=== PATIENT | female | born 1965 | race Two or more races ===

== ENCOUNTER 2020-10-08 09:59 | Outpatient (REF) | payer OTHER, SELFPAY | END 2020-10-08 10:00 | disposition home or self-care (01) | LOC: HO.LAB 09:59 | PROVIDERS: Visit Provider Internal Medicine | DX: Z20.828 Contact with and (suspected) exposure to other viral communicable diseases (principal) | CPT/HCPCS: C9803; U0003 ==

== ENCOUNTER 2021-07-10 11:17 | Emergency (ER) | payer OTHER, SELFPAY ==
[2021-07-10 12:05] VITALS: BP 197/108; PULSE 73; RESP 18; TEMP 37; O2SAT 98; BMI 38.9
--- NOTE | 2021-07-10 13:31 | ED.WOUNDLAC ---
HPI - Wound/Laceration General Chief Complaint: Wound/Laceration Stated Complaint: laceration Time Seen by Provider: 07/10/21 13:31 History of Present Illness HPI narrative: Patient complains of laceration to the left hand this morning from a scissors, no there is no pain there is no numbness weakness or tingling, no other injury Related Data Allergies Allergy/AdvReac Type Severity Reaction Status Date / Time ibuprofen Allergy Unknown kidney Verified 06/24/14 00:00 problems No Known Allergies Allergy Unknown Unverified 08/11/20 16:20 Review of Systems Review of Systems: Positive for left hand laceration Negatives are no dizziness no fainting no numbness no weakness no tingling no joint pains Yes all other systems are reviewed and are negative PMFSH Past Medical History Source: nursing notes reviewed Medical History (Updated 07/10/21 @ 13:57 by CHARLES Magallon) GERD (gastroesophageal reflux disease) HTN (hypertension) Social History Social History Advance Directives: No Advance Directives Information Provided: No Physical Exam Vital Signs: Vital Signs: Last Vital Signs Temp 98.6 F 07/10/21 12:05 Pulse 73 07/10/21 12:05 Resp 18 07/10/21 12:05 BP 197/108 H 07/10/21 12:05 Pulse Ox 98 07/10/21 12:05 Body Mass Index 38.9 General appearance no acute distress Head is normocephalic atraumatic Neck is supple Respiratory no distress Extremities full range of motion x4 Left hand in the webspace between the thumb and index finger there is 1 cm laceration, but there is full range of motion and thumb and index finger there is no evidence of any flexor or extensor tendon impairment, sensation and motor are intact and neurovascular intact distal, full range of motion in all joints Course Course Course Narrative: 1 cm left hand laceration is cleansed and irrigated with normal saline, examined for foreign body none visualized anesthesia is 4 cc of 1% lidocaine Closure was 2 x 5.0 nylon sutures, bleeding controlled and bandage applied Discharge Plan Discharge Clinical Impression: Laceration Patient Disposition: Home, Self-Care Additional Instructions: Two stitches should be removed in 7 days Return any time for redness swelling discharge from wound any sign of infection any worse condition You got a tetanus shot today Interventions: ED Discharge Assessment Last Done: 07/10/21 14:21 Discharge Date/Time: 07/10/21 14:22
[2021-07-10] MEDS: Lidocaine HCl 1 % MPF 5 ML VIAL SUBCUT (13:35)
[2021-07-10] MEDS: Diphth,Pertus(ACell),Tet Adult 0.5 ML SYRINGE IM (14:15)
== END 2021-07-10 14:22 | disposition home or self-care (01) ==
PROVIDERS: Emergency Provider Internal Medicine
DX: S61.412A Laceration without foreign body of left hand, initial encounter (principal); W27.2XXA Contact with scissors, initial encounter; Y93.9 Activity, unspecified; Y92.019 Unspecified place in single-family (private) house as the place of occurrence of the external cause; Y99.9 Unspecified external cause status
CPT/HCPCS: 12001; 90471; 90715; 99283; 99284

== ENCOUNTER 2021-08-08 11:13 | Outpatient (REF) | payer OTHER, SELFPAY ==
--- NOTE | ~2021-08-08 | XR_ITS ---
EXAMINATION: XR FOOT, LEFT CLINICAL INFORMATION: Left foot pain. COMPARISON: None TECHNIQUE: AP, lateral, and oblique views of the left foot. FINDINGS: Mild diffuse osteopenia. Nonspecific arthritic changes are noted at the second tarsometatarsal joint. Mild osteophyte formation is also noted at the dorsal aspect of the midfoot and small posterior plantar calcaneal spur. XR/XR foot LT min 3V IMPRESSION: Mild diffuse osteopenia. Nonspecific arthropathy at the second tarsometatarsal joint. Small posterior plantar calcaneal spur and osteoarthropathy of the dorsal aspect of the mid foot.
== END 2021-08-08 11:14 | disposition home or self-care (01) ==
LOC: HO.XRAY 11:13
PROVIDERS: PCP Internal Medicine Geriatric Medicine; Visit Provider Family Medicine
DX: M79.672 Pain in left foot (principal)
CPT/HCPCS: 73630

== ENCOUNTER 2021-09-05 11:55 | Inpatient (IN) | payer OTHER, SELFPAY ==
[2021-09-05] VITALS (9 sets, daily range): BP systolic 134–169; BP diastolic 75–96; PULSE 69–102; RESP 16–18; TEMP 36.7–37.8; O2SAT 97–100; BMI 38.9
--- NOTE | ~2021-09-05 | XR_ITS ---
EXAMINATION: XR WRIST, RIGHT CLINICAL INFORMATION: Postreduction: [place] fracture COMPARISON: Right forearm 09/05/2021 performed at 1:16 PM TECHNIQUE: PA, lateral, and oblique views of the right wrist. FINDINGS: Postreduction there is no change in the alignment of distal radial comminuted fracture and ulnar fracture. The fracture is stabilized with a palmar hard cast. XR/XR wrist RT min 3V IMPRESSION: Status post reduction the wrist is in a hard cast along the palmar aspect. Comminuted distal radial and comminuted ulnar fractures are unchanged to earlier exam performed at 1:22 PM
--- NOTE | ~2021-09-05 | XR_ITS ---
EXAMINATION: XR PELVIS CLINICAL INFORMATION: Status post right hip arthroplasty 15 years ago. Diagnosed with a distal femoral fracture on an x-ray from earlier today. COMPARISON: Femoral radiograph done earlier today at 4:27 PM. Interval the pelvis dated from 03/14/2015. TECHNIQUE: AP view of the pelvis. FINDINGS: A total right hip arthroplasty is intact. No acute fractures or malalignment. Mild degenerative changes in the left hip with joint space narrowing and subcortical sclerosis. XR/XR pelvis 1-2V IMPRESSION: Normal appearance of a right hip arthroplasty. No acute fractures or malalignment.
--- NOTE | ~2021-09-05 | FL_ITS ---
EXAMINATION: XR FLUOROSCOPY WITH IMAGES XR FLUOROSCOPY WITH IMAGES CLINICAL INFORMATION: Fracture right radius and fracture right femur COMPARISON: Radiographs from 09/05/2021 TECHNIQUE: RIGHT WRIST: Intraoperative fluoroscopic imaging of the right wrist. Number of saved fluoroscopy images: 5 Fluoroscopy exposure time of 1.9 minutes. Dose area product of 0.0708 mGym2 Right femur: Intraoperative fluoroscopic imaging of right femur. Number of saved images: 7 Fluoroscopy exposure time of 1.6 minutes. Dose area product of 0.273 Gycm2 FL/FL guidance in OR FINDINGS AND IMPRESSION: Right wrist: Intraoperative fluoroscopic guidance during open reduction and internal fixation of the comminuted fracture of the distal radius. The images show well-positioned volar fixation plate and screws with near-anatomic reduction of distal radial fragments. Carpal bone alignment is normal. Please refer to the operative report. Right femur: Intraoperative fluoroscopic guidance utilized during open reduction and internal fixation of the comminuted fracture of the distal femoral metadiaphysis (with supracondylar extension). The femoral fixation plate and screws are in satisfactory position. There is near anatomic reduction of the major fragments. Alignment is maintained at the knee. Please refer to the operative report.
--- NOTE | ~2021-09-05 | XR_ITS ---
EXAMINATION: RIGHT HAND, RIGHT FOREARM AND RIGHT KNEE. CLINICAL INFORMATION: Fall with hand and wrist pain. COMPARISON: None TECHNIQUE: 2 views right knee. 2 views hand/wrist. 2 views right forearm. FINDINGS: Right hand/wrist: There is a distal radial: These fracture with intra-articular extension and therefore deformity. Also visualized is distal ulnar fracture with intra-articular extension that are visualized on lateral view. Right forearm: The size of distal radial and ulnar fractures no abnormality seen involving the rest of the radius and ulna. Right knee: There is a comminuted distal femoral/supracondylar fracture with likely mild joint effusion. The there is loss of medial and lateral compartment joint space with periarticular spurring lateral compartment. The soft tissues are grossly unremarkable.. XR/XR knee RT 2V IMPRESSION: Comminuted distal radial fracture with intra-articular extension and there fork deformity. Also visualized is unremarkable distal ulnar fracture with intra-articular extension. Moderate dorsal wrist soft tissue swelling. Rest of the radius and ulna of the forearm is unremarkable. Comminuted distal femur is/supracondylar fracture with mild displacement and likely mild joint effusion.
--- NOTE | ~2021-09-05 | XR_ITS ---
EXAMINATION: XR FEMUR, RIGHT CLINICAL INFORMATION: Femur fracture COMPARISON: Right knee and pelvis x-ray from earlier the same day TECHNIQUE: AP and lateral views of the right femur were obtained. FINDINGS: There is a right hip replacement in satisfactory position. There is a comminuted fracture of the distal shaft of the femur. There is anterior displacement of the femoral shaft with respect to the femoral condyles and distal metaphysis by the width of the femoral shaft, or 3 to 4 cm. There is impaction at the fracture. No other fracture is seen. There is overlying soft tissue swelling. XR/XR femur RT 2V IMPRESSION: Comminuted displaced impacted right distal femoral shaft fracture. Right hip replacement in satisfactory position.
--- NOTE | ~2021-09-05 | XR_ITS ---
EXAMINATION: XR CHEST CLINICAL INFORMATION: Preop clearance. Femur fracture. COMPARISON: None TECHNIQUE: Frontal view of the chest was obtained. FINDINGS: The cardiac and mediastinal contours are normal. The lungs are clear. There is no pleural effusion or pneumothorax. There are degenerative changes of the spine. XR/XR chest 1V IMPRESSION: No evidence for acute disease in the chest.
--- NOTE | ~2021-09-05 | XR_ITS ---
EXAMINATION: RIGHT HAND, RIGHT FOREARM AND RIGHT KNEE. CLINICAL INFORMATION: Fall with hand and wrist pain. COMPARISON: None TECHNIQUE: 2 views right knee. 2 views hand/wrist. 2 views right forearm. FINDINGS: Right hand/wrist: There is a distal radial: These fracture with intra-articular extension and therefore deformity. Also visualized is distal ulnar fracture with intra-articular extension that are visualized on lateral view. Right forearm: The size of distal radial and ulnar fractures no abnormality seen involving the rest of the radius and ulna. Right knee: There is a comminuted distal femoral/supracondylar fracture with likely mild joint effusion. The there is loss of medial and lateral compartment joint space with periarticular spurring lateral compartment. The soft tissues are grossly unremarkable.. XR/XR forearm RT 2V IMPRESSION: Comminuted distal radial fracture with intra-articular extension and there fork deformity. Also visualized is unremarkable distal ulnar fracture with intra-articular extension. Moderate dorsal wrist soft tissue swelling. Rest of the radius and ulna of the forearm is unremarkable. Comminuted distal femur is/supracondylar fracture with mild displacement and likely mild joint effusion.
--- NOTE | ~2021-09-05 | XR_ITS ---
EXAMINATION: RIGHT HAND, RIGHT FOREARM AND RIGHT KNEE. CLINICAL INFORMATION: Fall with hand and wrist pain. COMPARISON: None TECHNIQUE: 2 views right knee. 2 views hand/wrist. 2 views right forearm. FINDINGS: Right hand/wrist: There is a distal radial: These fracture with intra-articular extension and therefore deformity. Also visualized is distal ulnar fracture with intra-articular extension that are visualized on lateral view. Right forearm: The size of distal radial and ulnar fractures no abnormality seen involving the rest of the radius and ulna. Right knee: There is a comminuted distal femoral/supracondylar fracture with likely mild joint effusion. The there is loss of medial and lateral compartment joint space with periarticular spurring lateral compartment. The soft tissues are grossly unremarkable.. XR/XR hand wrist RT IMPRESSION: Comminuted distal radial fracture with intra-articular extension and there fork deformity. Also visualized is unremarkable distal ulnar fracture with intra-articular extension. Moderate dorsal wrist soft tissue swelling. Rest of the radius and ulna of the forearm is unremarkable. Comminuted distal femur is/supracondylar fracture with mild displacement and likely mild joint effusion.
--- NOTE | ~2021-09-05 | FL_ITS ---
EXAMINATION: XR FLUOROSCOPY WITH IMAGES XR FLUOROSCOPY WITH IMAGES CLINICAL INFORMATION: Fracture right radius and fracture right femur COMPARISON: Radiographs from 09/05/2021 TECHNIQUE: RIGHT WRIST: Intraoperative fluoroscopic imaging of the right wrist. Number of saved fluoroscopy images: 5 Fluoroscopy exposure time of 1.9 minutes. Dose area product of 0.0708 mGym2 Right femur: Intraoperative fluoroscopic imaging of right femur. Number of saved images: 7 Fluoroscopy exposure time of 1.6 minutes. Dose area product of 0.273 Gycm2 FL/FL guidance in OR FINDINGS AND IMPRESSION: Right wrist: Intraoperative fluoroscopic guidance during open reduction and internal fixation of the comminuted fracture of the distal radius. The images show well-positioned volar fixation plate and screws with near-anatomic reduction of distal radial fragments. Carpal bone alignment is normal. Please refer to the operative report. Right femur: Intraoperative fluoroscopic guidance utilized during open reduction and internal fixation of the comminuted fracture of the distal femoral metadiaphysis (with supracondylar extension). The femoral fixation plate and screws are in satisfactory position. There is near anatomic reduction of the major fragments. Alignment is maintained at the knee. Please refer to the operative report.
--- NOTE | 2021-09-05 12:10 | ED.FALL ---
HPI - Fall General Chief Complaint: Fall Stated Complaint: FALL W/R KNEE PAIN W/ ?DISLOCATION Time Seen by Provider: 09/05/21 12:07 Source: patient, family and EMS Mode of arrival: EMS Limitations: no limitations History of Present Illness HPI Narrative: 56-year-old female came in by ambulance for evaluation after falling down at home. Patient described and mechanical fall after she slipped on a slippery floor at the kitchen of her house, patient fell down landing pending on her right knee and right wrist, no head injury, no LOC, no reported anticoagulation medications, patient was able to extend her right knee at the field but unable to bear weight on it, EMS give the patient intranasal fentanyl spray for pain control. Patient still complaining pain. Related Data Home Medications Medication Instructions Recorded Confirmed amlodipine 5 mg tablet 1 tab PO BEDTIME 09/05/21 09/05/21 lisinopril 20 1 tab PO DAILY 09/05/21 09/05/21 mg-hydrochlorothiazide 12.5 mg tablet pantoprazole 40 mg tablet,delayed 1 tab PO DAILY 09/05/21 09/05/21 release Allergies Allergy/AdvReac Type Severity Reaction Status Date / Time ibuprofen Allergy Unknown kidney Verified 06/24/14 00:00 problems No Known Allergies Allergy Unknown Unverified 08/11/20 16:20 Review of Systems Review of Systems: All other systems are reviewed and are negative Constitutional: Reports as per HPI and Reports no additional constitutional complaints Eyes: Reports as per HPI and Reports no additional eye complaints Reports system reviewed and no additional complaints, except as documented Cardiovascular: Reports as per HPI and Reports no additional cardiovascular complaints Respiratory: Reports as per HPI and Reports no additional respiratory complaints Gastrointestinal: Reports as per HPI and Reports no additional gastrointestinal complaints Genitourinary: Reports no additional female genitourinary complaints Musculoskeletal: Reports no additional musculoskeletal complaints Skin/Breast: Reports system reviewed and no additional complaints, except as docu Psychiatric: Reports no additional psychiatric complaints Endocrine: Reports no additional endocrine complaints Hematologic/Lymphatic: Reports no additional hematologic/lymphatic complaints Allergic/Immunologic: Reports no additional allergic/immunologic complaints Reports system reviewed and no additional complaints, except as documented and Reports Abnormal speech present PMFSH Past Medical History Medical History GERD (gastroesophageal reflux disease) HTN (hypertension) Social History Social History Patient Tobacco Use Status: Never used Tobacco Use of substances other than those prescribed or required for medical reasons: No Advance Directives: No Advance Directives Information Provided: No Patient : No Physical Exam Vital Signs: Vital Signs: Last Vital Signs Temp 98.0 F 09/05/21 12:14 Pulse 69 09/05/21 12:14 Resp 18 09/05/21 13:54 BP 134/96 H 09/05/21 12:14 Pulse Ox 97 09/05/21 12:14 Body Mass Index 38.9 Vital signs have been reviewed as appeared to be correct. Blood pressure normal. Heart rate normal. Respiration rate normal. Temperature normal. Oxygen saturation normal. Appearance: Alert. Oriented X3. No acute distress. Head: Normal external exam. Normocephalic. Atraumatic. No Shah signs noted. No raccoon eyes noted Eyes: PERRLA. EOMI. Conjunctiva and sclera normal. Eyelids normal. ENT: TM's Normal. Pharynx normal. Uvula midline. Moist mucous membranes. No trismus noted. No drooling noted. No muffled voice noted. Neck: Normal inspection. Neck supple. FROM. No adenopathy. Thyroid Normal. No meningeal signs. No neck mass noted. CVS: Normal heart rate and rhythm. Heart sound normal. No murmurs noted. Pulses normal throughout. Respiratory: No respiratory distress. Painless inspiration. Breath sounds normal. No wheezes/rales/rhonchi noted. Chest nontender. No accessory muscle usage noted or decreased air movement noted. Abdomen: Soft and nontender. Bowel sounds normal in all 4 quadrants. No distention noted. No organomegaly noted. No visible injury noted. Back: No CVA tenderness. Full range of motion noted. Skin: Skin warm and dry. Normal skin color. Normal skin turgor. No rashes/lesions/lacerations noted. Extremities: Right wrist is immobilized by EMS, fork deformity, neurovascularly intact in the hands and proximal to the wrist. Cap refill is less than 2 seconds, strong palpable right radial artery. Right lower extremity is exam: Right knee tenderness, with deformity, neurovascularly intact distal and proximal to the knee. Neuro: Oriented X 3. Cranial nerve exam: II-XII are grossly intact No motor deficit. No sensory deficit. Reflexes normal. Course Course Course Narrative: Assessment and plan. 56-year-old female status post mechanical fall, patient sustained right wrist dislocated fracture, and the right distal femur dislocated fracture. Right wrist fracture was reduced in the emergency department please refer to progress note post reduction x-ray show a minimal reduction the case discussed with ortho to attempt to reduction in the OR while patient under general anesthesia. Procedures Orthopedic Fracture Reduction Fracture #1: Time Out Performed: Yes Side: right Fracture Reduction Location: radius Analgesia: hematoma block Technique: direct manipulation and traction/counter-traction Post Reduction X-rays Demonstrate: other (Minimal reduction.) Post-reduction neuro exam: intact Post-reduction vascular exam: intact Splint Applied: Yes Patient Tolerated Procedure: well MDM - Fall Medical Records Attestation: I reviewed the patient's medical records. Lab Data Attestation: I reviewed the patient's lab results. Result diagrams: 09/05/21 14:06 09/05/21 14:06 Labs: Lab Results 09/05/21 09/05/21 Range/Units 14:06 14:06 WBC 13.6 H (4.8-10.8) X10*3/uL RBC 5.50 (4.20-5.50) X10*6/uL Hgb 14.3 (12.0-16.0) g/dl Hct 44.8 (37-47) % MCV 81.5 (80-98) fL MCH 26.0 L (27.0-33.0) pg MCHC 31.9 (31.0-35.0) g/dl RDW 14.3 (11.0-16.0) % Plt Count 282 (160-400) X10*3/uL MPV 9.0 L (9.4-12.3) fL Immature Gran % (Auto) 0.5 H (0.0-0.4) % Neut % (Auto) 84.5 H (45-73) % Lymph % (Auto) 9.2 L (20-40) % [place] % (Auto) 5.6 (2-11) % Eos % (Auto) 0.1 (0-4) % Baso % (Auto) 0.1 (0-2) % Lymph # (Auto) 1.3 (1.2-4.9) X10*3/uL [place] # (Auto) 0.8 (0.1-1.2) X10*3/uL Eos # (Auto) 0.0 (0.0-0.4) X10*3/uL Baso # (Auto) 0.0 (0.0-0.2) X10*3/uL Abs Immat Gran (auto) 0.07 H (0.00-0.03) X10*3/uL Absolute Neuts (auto) 11.5 H (2.0-8.3) X10*3/uL Absolute Nucleated RBC 0.000 (0.0-0.012) X10*3/uL Nucleated RBC % (auto) 0.0 (0.0-0.2) /100WBC Sodium 138 (135-145) mmol/L Potassium 4.1 (3.3-5.1) mmol/L Chloride 105 (96-108) mmol/L Carbon Dioxide 25 (22-29) mmol/L Anion Gap 12 (12-20) BUN 17 H (9-16) mg/dL Creatinine 0.85 (0.5-1.4) mg/dL Estim Creat Clear Calc 81.3 Estimated GFR > 60 Random Glucose 132 H (60-115) mg/dL Calcium 9.8 (8.4-10.2) mg/dL Imaging Data Right wrist x-ray: Radiologist's impression: Comminuted distal radial fracture with intra-articular extension and there fork deformity. Also visualized is unremarkable distal ulnar fracture with intra-articular extension. Moderate dorsal wrist soft tissue swelling. ? Rest of the radius and ulna of the forearm is unremarkable. ? Right femur x-ray: Radiologist's impression: Comminuted distal femur is/supracondylar fracture with mild displacement and likely mild joint effusion. Discharge Plan Discharge Clinical Impression: Fracture of wrist Closed femur fracture Qualifiers: Encounter type: initial encounter Femur location: supracondylar without intracondylar extension Patient Disposition: Admitted As Inpatient
[2021-09-05] MEDS: oxyCODONE HCl Immed Release 5 MG TABLET PO (12:37)
[2021-09-05] MEDS: HYDROmorphone HCl 1 MG/ML SYRINGE IM (12:51)
[2021-09-05 14:10] LABS: MANUAL DIFF FLAG NO
[2021-09-05 14:12] LABS: Basophils Percent Auto 0.1 % (0-2); Eosinophils Percent Auto 0.1 % (0-4); Hematocrit 44.8 % (37-47); Hemoglobin 14.3 g/dl (12.0-16.0); Imm Gran Abs Auto 0.07 X10*3/uL (0.00-0.03); Imm Gran Pct Auto 0.5 % (0.0-0.4); Lymphocytes Absolute Auto 1.3 X10*3/uL (1.2-4.9); Lymphocytes Percent Auto 9.2 % (20-40); Mean Corpuscular HGB Conc 31.9 g/dl (31.0-35.0); Mean Corpuscular Volume 81.5 fL (80-98); Monocytes Absolute Auto 0.8 X10*3/uL (0.1-1.2); Monocytes Percent Auto 5.6 % (2-11); Neutrophils Absolute Auto 11.5 X10*3/uL (2.0-8.3); Neutrophils Percent Auto 84.5 % (45-73); Platelet Count 282 X10*3/uL (160-400); Red Cell Distribution Width 14.3 % (11.0-16.0); White Blood Count 13.6 X10*3/uL (4.8-10.8)
[2021-09-05] MEDS: Lidocaine HCl 1 % MPF 5 ML VIAL 10 ML SUBCUT (14:22)
[2021-09-05 14:24] LABS: Anion Gap 12 (12-20); Blood Urea Nitrogen 17 mg/dL (9-16); Calcium 9.8 mg/dL (8.4-10.2); Carbon Dioxide 25 mmol/L (22-29); Chloride 105 mmol/L (96-108); Creatinine Clr Calc Pharmacy 81.3; Estimated Glomerular Filt Rate > 60; Glucose Random 132 mg/dL (60-115); Potassium 4.1 mmol/L (3.3-5.1); Sodium 138 mmol/L (135-145)
--- NOTE | 2021-09-05 14:30 | ECG_ITS ---
Test Reason : FALL Blood Pressure : / mmHG Vent. Rate : 081 BPM Atrial Rate : 081 BPM P-R Int : 162 ms QRS Dur : 094 ms QT Int : 376 ms P-R-T Axes : 053 -35 041 degrees QTc Int : 436 ms Normal sinus rhythm with sinus arrhythmia Left axis deviation T-wave inversion in Anterior leads Nonspecific T wave abnormality Inferior leads RSR' or QR pattern in V1 suggests right ventricular conduction delay Left axis deviation Abnormal ECG When compared with ECG of 02-JUL-2014 02:09, Nonspecific T wave abnormality, worse in Inferior leads Referred By: Kevin Castillo Electronically Signed By:MAYRA VALENCIA MD
[2021-09-05] MEDS: HYDROmorphone HCl 0.5 MG/0.5 ML SYRINGE 0.1 MG IVPUSH (14:41)
--- NOTE | 2021-09-05 15:22 | P.HPOP_ITS ---
History of Present Illness History of Present Illness Date of Service: 09/05/21 Chief complaint: r distal femur fx and r distal radius / ulna fx Narrative: Amanda Santiago is a 56 year old female with a PMH of HTN who presented to the ED after sustaining a fall . She states she was in her pantry when she tripped over something and fell. She states her right knee went behind her and she also fall onto her right wrist. She was transported to the ED, xrays obtained which showed a right distal femur fracture and a right distal radius fracture. The right wrist was reduced in the ED, placed in a splint. Orthopedics was contacted for admission and surgical planning. The patient lives at home with her brother, she is right hand dominant. She does not use any assistive devices for ambulation. She performs all ADLs. Review of Systems 2 Review of Systems: Yes all other systems are reviewed and are negative PMF Past Medical History Medical History (Updated 09/05/21 @ 14:41 by Kevin Castillo MD) GERD (gastroesophageal reflux disease) HTN (hypertension) Surgical History Surgical History (Updated 09/05/21 @ 18:16 by Bryon Stroud PA-C) H/O left wrist surgery Status post total hip replacement, right Social History Social History Patient Tobacco Use Status: Never used Tobacco Use of substances other than those prescribed or required for medical reasons: No Advance Directives: No Advance Directives Information Provided: No Patient : No Meds Allergies Allergy/AdvReac Type Severity Reaction Status Date / Time ibuprofen Allergy Unknown kidney Verified 06/24/14 00:00 problems No Known Allergies Allergy Unknown Unverified 08/11/20 16:20 Home Medications Medication Instructions Recorded Confirmed Last Taken Type amlodipine 5 mg tablet 1 tab PO BEDTIME 09/05/21 09/05/21 09/04/21 History lisinopril 20 1 tab PO DAILY 09/05/21 09/05/21 09/05/21 History mg-hydrochlorothiazide 12.5 mg tablet pantoprazole 40 mg tablet,delayed 1 tab PO DAILY 09/05/21 09/05/21 09/05/21 History release Physical Exam Vital Signs: Vital Signs: Last Vital Signs Temp 98.0 F 09/05/21 12:14 Pulse 69 09/05/21 12:14 Resp 18 09/05/21 13:54 BP 134/96 H 09/05/21 12:14 Pulse Ox 97 09/05/21 12:14 Body Mass Index 38.9 Const: General: cooperative, healthy appearing, comfortable, no acute distress, well developed and alert Orientation/consciousness: patient oriented x3 HENMT: Head: Yes normal to inspection, Yes normocephalic and Yes atraumatic Eyes: General: appearance normal, both eyes and all related structures Neck: Neck: Yes normal visual inspection and Yes no lymphadenopathy Resp: Effort & Inspection: normal respiratory effort and able to speak in complete sentences Cardio: Rate: regular rate Peripheral pulses: Peripheral pulses 2+ throughout GI: Inspection: Yes normal to inspection Palpation (GI): Soft to palpation Skin: General skin exam: no rashes or lesions noted Neuro: General: patient oriented x3 Extrem: Other: Right lower extremity skin intact, no open wounds or lacerations. There is tenderness along the distal femur. No pain with log rol. Mild swelling in the right knee. No redness. No pain int he right ankle or foot. NVI. Right wrist splint intact. Sensation intact to the fingers with good capillary refill . Psych: Appearance: grossly normal Mental Status: mental status grossly normal Results Labs Result Diagrams: 09/05/21 14:06 09/05/21 14:06 Labs: Abnormal lab results 09/05/21 09/05/21 Range/Units 14:06 14:06 WBC 13.6 H (4.8-10.8) X10*3/uL MCH 26.0 L (27.0-33.0) pg MPV 9.0 L (9.4-12.3) fL Immature Gran % (Auto) 0.5 H (0.0-0.4) % Neut % (Auto) 84.5 H (45-73) % Lymph % (Auto) 9.2 L (20-40) % Abs Immat Gran (auto) 0.07 H (0.00-0.03) X10*3/uL Absolute Neuts (auto) 11.5 H (2.0-8.3) X10*3/uL BUN 17 H (9-16) mg/dL Random Glucose 132 H (60-115) mg/dL H & H 09/05/21 Range/Units 14:06 Hgb 14.3 (12.0-16.0) g/dl Hct 44.8 (37-47) % All other labs normal. Diagnostic results Wrist/Hand x-ray: image reviewed (Comminuted distal radial fracture with intra- articular extension) Knee x-ray: image reviewed (Comminuted displaced impacted right distal femoral shaft fracture. Right hip replacement in satisfactory position.) Assessment and Plan (1) Fracture of wrist: Status: Acute (2) Closed femur fracture: Qualifiers: Encounter type: initial encounter Femur location: supracondylar without intracondylar extension Status: Acute I discussed the case with Dr Alegria and explained the extent of the injury to the patient and options available which include surgical intervention. I explained the procedure in detail along with the length of recovery and rehab course. I explained the risk, benefits and alternatives. Risk including, but not limited to infection, blood clots, bleeding, non union or malunion and nerve/tissue damage to surrounding areas. I also discussed the possibility of DRUJ pinning. I answered all their questions and with their understanding they have consented to move forward with Operative Fixation of the right femur and operative fixation of the right distal radius with Dr Alegria. The patient will be T&S, med clearance obtained and NPO after midnight. Quality Stroke Does the patient have a stroke diagnosis?: No VTE Prior VTE?: No VTE Risk Level:: Surgical - high VTE Device Contraindication: N/A - Device Ordered VTE Drug Contraindication: Treatment Not Indicated (pre op) Procedures Date of Service Date of Service: 09/05/21
[2021-09-05 15:42] LABS: Appearance Urine CLEAR; Color Urine YELLOW; Glucose Urine UA NEG (NEG); Leukocyte Esterase Urine NEG (NEG); Nitrite Urine NEG (NEG); UACC Culture Trigger NO; Urine Blood 1+ (NEG); Urine Ketones NEG (NEG); Urine Protein NEG (NEG-TRACE)
[2021-09-05 16:09] LABS: Bacteria Urine TRACE /LPF; Mucus Urine 1+ /LPF; Squamous Epithelial Cell Urine 1+ /LPF; WBC Urine 0 /HPF (0-4)
--- NOTE | 2021-09-05 18:38 | HO.PM.IMCN ---
History of Present Illness Data of Consult Service Date: 09/05/21 Primary Care Provider: [facility] HPI Reason for consult: Pre op eval 56 year old female with PMH of HTN takes Norvasc, HCTZ and Lisinopril. She presented to the ED following a mechanical fall while arranging things in her pantry and may have tripped on an object. She denies dizziness, chest pain or shortness of breath at that time. She felt her right knee going behind and then fell onto her right wrist. Upon arrival to the ED, imaging showed a right distal femur fracture and a right distal radius fracture. The right wrist was reduced in the ED and splinted. She is having lots of pain and BP is moderatedly high. Review of Systems Review of Systems: pain in the right wrist, right leg/tigh, no chest pain, no sob Yes all other systems are reviewed and are negative [facility] Medical History (Updated 09/05/21 @ 18:46 by Jaison Hernandez MD) GERD (gastroesophageal reflux disease) HTN (hypertension) Pertinent family history: She reports no family history of CAD Surgical History H/O left wrist surgery Status post total hip replacement, right Social History Household Members: Family Housing: House Do you presently have visiting nurse or other home services: No Patient Tobacco Use Status: Never used Tobacco service: No Meds Allergies Allergy/AdvReac Type Severity Reaction Status Date / Time ibuprofen Allergy Unknown kidney Verified 06/24/14 00:00 problems Active Medications: Current Medications Acetaminophen (Acetaminophen 325 Mg Tablet) 650 mg PO Q6H PRN PRN Reason: Pain, Mild (Pain Scale 1-3) Docusate Sodium (Docusate Sodium 100 Mg Capsule) 100 mg PO BID KARI Hydromorphone HCl (Hydromorphone Hcl 0.5 Mg/0.5 Ml Syringe) 0.25 mg IVPUSH Q4H PRN; Protocol PRN Reason: Pain, Severe (Pain Scale 7-10) Dextrose/Sodium Chloride (D51/2ns) 1,000 mls @ 80 mls/hr IVCONT .[id number] KARI Cefazolin Sodium/Dextrose (Ancef) 2 gm in 50 mls @ 100 mls/hr IV PREOP ONE Stop: 09/06/21 12:29 Ondansetron HCl (Ondansetron Hcl 4 Mg/2 Ml Vial) 4 mg IVPUSH Q8H PRN PRN Reason: Nausea and Vomiting Oxycodone HCl (Oxycodone Hcl Immed Release 5 Mg Tablet) 5 mg PO Q4H PRN PRN Reason: Pain, Moderate (Pain Scale 4-6 Oxycodone HCl (Oxycodone Hcl Er 10 Mg Tab.Er.12h) 10 mg PO BID [facility] Sodium Chloride (0.9 % Sodium Chloride Flush 3 Ml Syringe) 3 ml IVFLUSH QSHIFT [facility] Home Medications Medication Instructions Recorded Confirmed Last Taken Type amlodipine 5 mg tablet 1 tab PO BEDTIME 09/05/21 09/05/21 09/04/21 History lisinopril 20 1 tab PO DAILY 09/05/21 09/05/21 09/05/21 History mg-hydrochlorothiazide 12.5 mg tablet pantoprazole 40 mg tablet,delayed 1 tab PO DAILY 09/05/21 09/05/21 09/05/21 History release Physical Exam Vital Signs and Narrative: Vital Signs: Last Vital Signs Temp 98.0 F 09/05/21 12:14 Pulse 91 09/05/21 17:32 Resp 18 09/05/21 17:32 BP 169/87 H 09/05/21 17:32 Pulse Ox 99 09/05/21 17:32 Body Mass Index 38.9 Results Labs CBC and Chem 7: 09/06/21 05:20 09/06/21 05:20 Labs: Laboratory Results - last 24 hr 09/05/21 09/05/21 09/05/21 14:06 14:06 15:30 MCV 81.5 MCH 26.0 L MCHC 31.9 RDW 14.3 Plt Count 282 MPV 9.0 L Immature Gran % (Auto) 0.5 H Neut % (Auto) 84.5 H Lymph % (Auto) 9.2 L [place] % (Auto) 5.6 Eos % (Auto) 0.1 Baso % (Auto) 0.1 Lymph # (Auto) 1.3 [place] # (Auto) 0.8 Eos # (Auto) 0.0 Baso # (Auto) 0.0 Abs Immat Gran (auto) 0.07 H Absolute Neuts (auto) 11.5 H Absolute Nucleated RBC 0.000 Nucleated RBC % (auto) 0.0 Anion Gap 12 Estim Creat Clear Calc 81.3 Estimated GFR > 60 Random Glucose 132 H Calcium 9.8 Urine Color YELLOW Urine Appearance CLEAR Urine pH 6.0 Ur Specific [place] 1.020 Urine Protein NEG Urine Glucose (UA) NEG Urine Ketones NEG Urine Blood 1+ H Urine Nitrite NEG Ur Leukocyte Esterase NEG Urine RBC 1-4 Urine WBC 0 Ur Squamous Epith Cells 1+ Urine Bacteria TRACE Urine Mucus 1+ Blood Type Antibody Screen 09/05/21 15:46 MCV MCH MCHC RDW Plt Count MPV Immature Gran % (Auto) Neut % (Auto) Lymph % (Auto) [place] % (Auto) Eos % (Auto) Baso % (Auto) Lymph # (Auto) [place] # (Auto) Eos # (Auto) Baso # (Auto) Abs Immat Gran (auto) Absolute Neuts (auto) Absolute Nucleated RBC Nucleated RBC % (auto) Anion Gap Estim Creat Clear Calc Estimated GFR Random Glucose Calcium Urine Color Urine Appearance Urine pH Ur Specific [place] Urine Protein Urine Glucose (UA) Urine Ketones Urine Blood Urine Nitrite Ur Leukocyte Esterase Urine RBC Urine WBC Ur Squamous Epith Cells Urine Bacteria Urine Mucus Blood Type O Positive Antibody Screen NEGATIVE ECG Interpretation: I reviewed ECG which shows sinus rythm and non-specific ST-T changes, no ischemic changes. Imaging Radiologist's Impressions: Impressions Forearm X-Ray 09/05/21 12:07 IMPRESSION: Comminuted distal radial fracture with intra-articular extension and there fork deformity. Also visualized is unremarkable distal ulnar fracture with intra-articular extension. Moderate dorsal wrist soft tissue swelling. Rest of the radius and ulna of the forearm is unremarkable. Comminuted distal femur is/supracondylar fracture with mild displacement and likely mild joint effusion. Hand/Wrist X-Ray 09/05/21 12:07 IMPRESSION: Comminuted distal radial fracture with intra-articular extension and there fork deformity. Also visualized is unremarkable distal ulnar fracture with intra-articular extension. Moderate dorsal wrist soft tissue swelling. Rest of the radius and ulna of the forearm is unremarkable. Comminuted distal femur is/supracondylar fracture with mild displacement and likely mild joint effusion. Knee X-Ray 09/05/21 12:07 IMPRESSION: Comminuted distal radial fracture with intra-articular extension and there fork deformity. Also visualized is unremarkable distal ulnar fracture with intra-articular extension. Moderate dorsal wrist soft tissue swelling. Rest of the radius and ulna of the forearm is unremarkable. Comminuted distal femur is/supracondylar fracture with mild displacement and likely mild joint effusion. Wrist X-Ray 09/05/21 14:33 IMPRESSION: Status post reduction the wrist is in a hard cast along the palmar aspect. Comminuted distal radial and comminuted ulnar fractures are unchanged to earlier exam performed at 1:22 PM Femur X-Ray 09/05/21 16:01 IMPRESSION: Comminuted displaced impacted right distal femoral shaft fracture. Right hip replacement in satisfactory position. Chest X-Ray 09/05/21 16:12 IMPRESSION: No evidence for acute disease in the chest. Pelvis X-Ray 09/05/21 16:55 IMPRESSION: Normal appearance of a right hip arthroplasty. No acute fractures or malalignment. Assessment and Plan (1) Fracture of wrist: Status: Acute (2) Closed femur fracture: Qualifiers: Encounter type: initial encounter Femur location: supracondylar without intracondylar extension Status: Acute 56 year old female with HTN, GERD here with mechanical fall resulting in right distal femur fracture and a right distal radius fracture 1/?Planed operative Fixation of the right femur and operative fixation of the right distal radius -At low cardiovascular risk given no h/o of CAD, HF, CVA/TIA or ischmic changes on ECG and given urgent nature of operation no further cardiac testing at this time. 2/HTN--BP seem high now possibly due to pain, will restart home meds 3/ GERD--PPI.
[2021-09-05] MEDS: HYDROmorphone HCl 0.5 MG/0.5 ML SYRINGE 0.25 MG IVPUSH (19:35)
[2021-09-05] MEDS: 0.9 % Sodium Chloride Flush 3 ML SYRINGE IVFLUSH (19:37)
[2021-09-05] MEDS: Dextrose 5 % and 0.45 % NaCl 1,000 ML 80 ML IVCONT (19:38)
[2021-09-05] MEDS: Docusate Sodium 100 MG CAPSULE PO (22:57)
[2021-09-05] MEDS: oxyCODONE HCl ER 10 MG TAB.ER.12H PO (22:57)
[2021-09-06] VITALS (11 sets, daily range): BP systolic 121–155; BP diastolic 72–105; PULSE 91–110; RESP 14–19; TEMP 36.2–37.2; O2SAT 4–100
[2021-09-06] MEDS: HYDROmorphone HCl 0.5 MG/0.5 ML SYRINGE 0.25 MG IVPUSH ×2 (00:53→06:04)
[2021-09-06 05:42] LABS: MANUAL DIFF FLAG NO
[2021-09-06 05:46] LABS: Basophils Percent Auto 0.1 % (0-2); Hematocrit 38.8 % (37-47); Hemoglobin 12.7 g/dl (12.0-16.0); Imm Gran Abs Auto 0.05 X10*3/uL (0.00-0.03); Imm Gran Pct Auto 0.5 % (0.0-0.4); Lymphocytes Absolute Auto 1.4 X10*3/uL (1.2-4.9); Lymphocytes Percent Auto 12.4 % (20-40); Mean Corpuscular HGB Conc 32.7 g/dl (31.0-35.0); Mean Corpuscular Hemoglobin 26.2 pg (27.0-33.0); Mean Platelet Volume 9.3 fL (9.4-12.3); Monocytes Absolute Auto 0.9 X10*3/uL (0.1-1.2); Monocytes Percent Auto 8.1 % (2-11); Neutrophils Absolute Auto 8.6 X10*3/uL (2.0-8.3); Neutrophils Percent Auto 78.9 % (45-73); Platelet Count 246 X10*3/uL (160-400); Red Blood Count 4.85 X10*6/uL (4.20-5.50); Red Cell Distribution Width 14.6 % (11.0-16.0)
[2021-09-06 06:17] LABS: Anion Gap 12 (12-20); Blood Urea Nitrogen 15 mg/dL (9-16); Carbon Dioxide 23 mmol/L (22-29); Chloride 102 mmol/L (96-108); Creatinine Clr Calc Pharmacy 95.9; Estimated Glomerular Filt Rate > 60; Glucose Fasting 141 mg/dL (60-99); Sodium 133 mmol/L (135-145)
[2021-09-06] MEDS: oxyCODONE HCl ER 10 MG TAB.ER.12H PO ×2 (10:23→20:19)
--- NOTE | 2021-09-06 11:41 | MHC.CM.PN ---
met with pt and her dgters pt lives in a 3 famil,y house with her brother, 2 of her 6 children live on the f2nd and 3rd floors pt is vaccinated with pfitzer she he is having surgery today her dc plan therefore is tbd by pt keshawn pt prefers to go home with home pt
[2021-09-06 11:54] LABS: COVID-19 Test Negative (Negative); IDNOW Serial# 08D9AD1C
--- NOTE | 2021-09-06 13:21 | P.PNIM_ITS ---
Subjective Subjective Date of Service: 09/06/21 Interval History: Seen in f/u for for pre op for femur and wrist fracture Review of Systems pain in hip no fever no chest pain no sob Physical Exam Vital Signs: Vital Signs: Last Vital Signs Temp 99.0 F 09/06/21 13:16 Pulse 109 H 09/06/21 13:16 Resp 16 09/06/21 13:16 BP 155/105 H 09/06/21 13:16 Pulse Ox 97 09/06/21 13:16 Body Mass Index 38.9 General: AO X 3, no acute distress Resp: CTA bilateral CVS: S1,S2,RRR GI: +BS, NT, no distention Skin: No rash Neuro: motor grossly intact MSK: right hand splint, pain in right hip with movment Psych: appropriate affect Objective Data Active Medications Acetaminophen (Acetaminophen 325 Mg Tablet) 650 mg PO Q6H PRN PRN Reason: Pain, Mild (Pain Scale 1-3) Docusate Sodium (Docusate Sodium 100 Mg Capsule) 100 mg PO BID [facility] Last Admin: 09/06/21 10:23 Dose: Not Given Documented by: ROMELIA Non-Admin Reason: NPO Hydromorphone HCl (Hydromorphone Hcl 0.5 Mg/0.5 Ml Syringe) 0.25 mg IVPUSH Q4H PRN; Protocol PRN Reason: Pain, Severe (Pain Scale 7-10) Last Admin: 09/06/21 06:04 Dose: 0.25 mg Documented by: REN Dextrose/Sodium Chloride (D51/2ns) 1,000 mls @ 80 mls/hr IVCONT .[id number] [facility] Last Admin: 09/06/21 09:19 Dose: Not Given Documented by: SAHIL Non-Admin Reason: IV Running Ondansetron HCl (Ondansetron Hcl 4 Mg/2 Ml Vial) 4 mg IVPUSH Q8H PRN PRN Reason: Nausea and Vomiting Oxycodone HCl (Oxycodone Hcl Immed Release 5 Mg Tablet) 5 mg PO Q4H PRN PRN Reason: Pain, Moderate (Pain Scale 4-6 Oxycodone HCl (Oxycodone Hcl Er 10 Mg Tab.Er.12h) 10 mg PO BID [facility] Last Admin: 10/13/21 10:23 Dose: 10 mg Documented by: ROMELIA Sodium Chloride (0.9 % Sodium Chloride Flush 3 Ml Syringe) 3 ml IVFLUSH QSHIFT [facility] Last Admin: 09/06/21 09:24 Dose: Not Given Documented by: SAHIL Non-Admin Reason: IV Running Labs CBC & Chem 7: 09/06/21 05:20 09/06/21 05:20 Labs: Laboratory Results - last 24 hr 09/05/21 09/05/21 09/05/21 14:06 14:06 15:30 MCV 81.5 MCH 26.0 L MCHC 31.9 RDW 14.3 Plt Count 282 MPV 9.0 L Immature Gran % (Auto) 0.5 H Neut % (Auto) 84.5 H Lymph % (Auto) 9.2 L [place] % (Auto) 5.6 Eos % (Auto) 0.1 Baso % (Auto) 0.1 Lymph # (Auto) 1.3 [place] # (Auto) 0.8 Eos # (Auto) 0.0 Baso # (Auto) 0.0 Abs Immat Gran (auto) 0.07 H Absolute Neuts (auto) 11.5 H Absolute Nucleated RBC 0.000 Nucleated RBC % (auto) 0.0 Anion Gap 12 Estim Creat Clear Calc 81.3 Estimated GFR > 60 Random Glucose 132 H Fasting Glucose Calcium 9.8 Urine Color YELLOW Urine Appearance CLEAR Urine pH 6.0 Ur Specific [place] 1.020 Urine Protein NEG Urine Glucose (UA) NEG Urine Ketones NEG Urine Blood 1+ H Urine Nitrite NEG Ur Leukocyte Esterase NEG Urine RBC 1-4 Urine WBC 0 Ur Squamous Epith Cells 1+ Urine Bacteria TRACE Urine Mucus 1+ COVID-19 (LISANDRO) COVID-19 Clin Com Blood Type Antibody Screen 09/05/21 09/06/21 09/06/21 15:46 05:20 05:20 MCV 80.0 MCH 26.2 L MCHC 32.7 RDW 14.6 Plt Count 246 MPV 9.3 L Immature Gran % (Auto) 0.5 H Neut % (Auto) 78.9 H Lymph % (Auto) 12.4 L [place] % (Auto) 8.1 Eos % (Auto) 0.0 Baso % (Auto) 0.1 Lymph # (Auto) 1.4 [place] # (Auto) 0.9 Eos # (Auto) 0.0 Baso # (Auto) 0.0 Abs Immat Gran (auto) 0.05 H Absolute Neuts (auto) 8.6 H Absolute Nucleated RBC 0.000 Nucleated RBC % (auto) 0.0 Anion Gap 12 Estim Creat Clear Calc 95.9 Estimated GFR > 60 Random Glucose Fasting Glucose 141 H Calcium 9.0 D Urine Color Urine Appearance Urine pH Ur Specific [place] Urine Protein Urine Glucose (UA) Urine Ketones Urine Blood Urine Nitrite Ur Leukocyte Esterase Urine RBC Urine WBC Ur Squamous Epith Cells Urine Bacteria Urine Mucus COVID-19 ([facility]ISANDRO) COVID-19 Clin Com Blood Type O Positive Antibody Screen NEGATIVE 09/06/21 11:20 MCV MCH MCHC RDW Plt Count MPV Immature Gran % (Auto) Neut % (Auto) Lymph % (Auto) [place] % (Auto) Eos % (Auto) Baso % (Auto) Lymph # (Auto) [place] # (Auto) Eos # (Auto) Baso # (Auto) Abs Immat Gran (auto) Absolute Neuts (auto) Absolute Nucleated RBC Nucleated RBC % (auto) Anion Gap Estim Creat Clear Calc Estimated GFR Random Glucose Fasting Glucose Calcium Urine Color Urine Appearance Urine pH Ur Specific [place] Urine Protein Urine Glucose (UA) Urine Ketones Urine Blood Urine Nitrite Ur Leukocyte Esterase Urine RBC Urine WBC Ur Squamous Epith Cells Urine Bacteria Urine Mucus COVID-19 (LISANDRO) Negative COVID-19 Clin Com See Note Blood Type Antibody Screen Assessment and Plan (1) Fracture of wrist: Status: Acute (2) Closed femur fracture: Status: Acute (3) HTN (hypertension): Status: Acute (4) GERD (gastroesophageal reflux disease): Status: Acute Assessment and Plan: 56 year old female with HTN, GERD here with mechanical fall resulting in? right distal femur fracture and a right distal radius fracture 1/?Planed operative Fixation of the right femur and operative fixation of the right distal radius -At low cardiovascular risk given no h/o of CAD, HF, CVA/TIA or ischmic changes on ECG and given urgent nature of operation no further cardiac testing at this time. 2/HTN--BP seem high now possibly due to pain, will restart home meds 3/ GERD--PPI. 4/DVT prophylaxis to be determined post op Quality Stroke Does the patient have a stroke diagnosis?: No VTE Prior VTE?: No VTE Risk Level:: Surgical - high VTE Device Contraindication: N/A - Device Ordered VTE Drug Contraindication: Treatment Not Indicated (pre op)
[2021-09-06] MEDS: Lactated Ringers 1,000 ML 100 ML IVCONT (13:24)
--- NOTE | 2021-09-06 13:49 | P.CONAN_ITS ---
HPI - Anesthesia Eval Consult details Narrative: 56 yo female patient for Operative Fixation Right femur and Right distal radius PMFSH Active Problems Active Problems: All Active Problems (Updated 09/05/21 @ 18:46 by Jaison Hernandez MD) GERD (gastroesophageal reflux disease) (Acute) HTN (hypertension) (Acute) Fracture of wrist (Acute) Closed femur fracture (Acute) Increased BMI Past Medical History Medical History (Updated 09/05/21 @ 18:46 by Jaison Hernandez MD) GERD (gastroesophageal reflux disease) HTN (hypertension) Family History Family history of problems with anesthesia: No Surgical History Surgical History H/O left wrist surgery Status post total hip replacement, right History of Problems with Anesthesia: No Social History Social History Household Members: Family Housing: House Do you presently have visiting nurse or other home services: No Patient Tobacco Use Status: Never used Tobacco service: No Meds Allergies Allergy/AdvReac Type Severity Reaction Status Date / Time ibuprofen Allergy Unknown kidney Verified 06/24/14 00:00 problems Active Medications: Current Medications Acetaminophen (Acetaminophen 325 Mg Tablet) 650 mg PO Q6H PRN PRN Reason: Pain, Mild (Pain Scale 1-3) Docusate Sodium (Docusate Sodium 100 Mg Capsule) 100 mg PO BID [facility] Last Admin: 09/06/21 10:23 Dose: Not Given Documented by: Hydromorphone HCl (Hydromorphone Hcl 0.5 Mg/0.5 Ml Syringe) 0.25 mg IVPUSH Q4H PRN; Protocol PRN Reason: Pain, Severe (Pain Scale 7-10) Last Admin: 09/06/21 06:04 Dose: 0.25 mg Documented by: Dextrose/Sodium Chloride (D51/2ns) 1,000 mls @ 80 mls/hr IVCONT .[id number] [facility] Last Admin: 09/06/21 09:19 Dose: Not Given Documented by: Ondansetron HCl (Ondansetron Hcl 4 Mg/2 Ml Vial) 4 mg IVPUSH Q8H PRN PRN Reason: Nausea and Vomiting Oxycodone HCl (Oxycodone Hcl Immed Release 5 Mg Tablet) 5 mg PO Q4H PRN PRN Reason: Pain, Moderate (Pain Scale 4-6 Oxycodone HCl (Oxycodone Hcl Er 10 Mg Tab.Er.12h) 10 mg PO BID [facility] Last Admin: 09/06/21 10:23 Dose: 10 mg Documented by: Sodium Chloride (0.9 % Sodium Chloride Flush 3 Ml Syringe) 3 ml IVFLUSH QSHIFT [facility] Last Admin: 09/06/21 09:24 Dose: Not Given Documented by: Home Medications Medication Instructions Recorded Confirmed Last Taken Type amlodipine 5 mg tablet 1 tab PO BEDTIME 09/05/21 09/05/21 09/04/21 History lisinopril 20 1 tab PO DAILY 09/05/21 09/05/21 09/05/21 History mg-hydrochlorothiazide 12.5 mg tablet pantoprazole 40 mg tablet,delayed 1 tab PO DAILY 09/05/21 09/05/21 09/05/21 History release Exam Exam Date and Time: September 06, 2021 1349 Height,Weight and Vital Signs: Height 5 ft 3 in Weight 99.79 kg Last Vital Signs Temp 99.0 F 09/06/21 13:16 Pulse 109 H 09/06/21 13:16 Resp 16 09/06/21 13:16 BP 155/105 H 09/06/21 13:16 Pulse Ox 97 09/06/21 13:16 Pertinent Lab Results Pertinent Lab Results: Laboratory Tests 09/05/21 09/05/21 09/05/21 14:06 14:06 15:30 WBC 13.6 H RBC 5.50 Hgb 14.3 Hct 44.8 MCV 81.5 MCH 26.0 L MCHC 31.9 RDW 14.3 Plt Count 282 MPV 9.0 L Immature Gran % (Auto) 0.5 H Neut % (Auto) 84.5 H Lymph % (Auto) 9.2 L [place] % (Auto) 5.6 Eos % (Auto) 0.1 Baso % (Auto) 0.1 Lymph # (Auto) 1.3 [place] # (Auto) 0.8 Eos # (Auto) 0.0 Baso # (Auto) 0.0 Abs Immat Gran (auto) 0.07 H Absolute Neuts (auto) 11.5 H Absolute Nucleated RBC 0.000 Nucleated RBC % (auto) 0.0 Sodium 138 Potassium 4.1 Chloride 105 Carbon Dioxide 25 Anion Gap 12 BUN 17 H Creatinine 0.85 Estim Creat Clear Calc 81.3 Estimated GFR > 60 Random Glucose 132 H Fasting Glucose Calcium 9.8 Urine Color YELLOW Urine Appearance CLEAR Urine pH 6.0 Ur Specific [place] 1.020 Urine Protein NEG Urine Glucose (UA) NEG Urine Ketones NEG Urine Blood 1+ H Urine Nitrite NEG Ur Leukocyte Esterase NEG Urine RBC 1-4 Urine WBC 0 Ur Squamous Epith Cells 1+ Urine Bacteria TRACE Urine Mucus 1+ COVID-19 (LISANDRO) COVID-19 [facility] Com Blood Type Antibody Screen 09/05/21 09/06/21 09/06/21 15:46 05:20 05:20 WBC 11.0 H RBC 4.85 Hgb 12.7 Hct 38.8 MCV 80.0 MCH 26.2 L MCHC 32.7 RDW 14.6 Plt Count 246 MPV 9.3 L Immature Gran % (Auto) 0.5 H Neut % (Auto) 78.9 H Lymph % (Auto) 12.4 L [place] % (Auto) 8.1 Eos % (Auto) 0.0 Baso % (Auto) 0.1 Lymph # (Auto) 1.4 [place] # (Auto) 0.9 Eos # (Auto) 0.0 Baso # (Auto) 0.0 Abs Immat Gran (auto) 0.05 H Absolute Neuts (auto) 8.6 H Absolute Nucleated RBC 0.000 Nucleated RBC % (auto) 0.0 Sodium 133 L Potassium 4.0 Chloride 102 Carbon Dioxide 23 Anion Gap 12 BUN 15 Creatinine 0.72 Estim Creat Clear Calc 95.9 Estimated GFR > 60 Random Glucose Fasting Glucose 141 H Calcium 9.0 D Urine Color Urine Appearance Urine pH Ur Specific [place] Urine Protein Urine Glucose (UA) Urine Ketones Urine Blood Urine Nitrite Ur Leukocyte Esterase Urine RBC Urine WBC Ur Squamous Epith Cells Urine Bacteria Urine Mucus COVID-19 (LISANDRO) COVID-19 [facility] Com Blood Type O Positive Antibody Screen NEGATIVE 09/06/21 11:20 WBC RBC Hgb Hct MCV MCH MCHC RDW Plt Count MPV Immature Gran % (Auto) Neut % (Auto) Lymph % (Auto) [place] % (Auto) Eos % (Auto) Baso % (Auto) Lymph # (Auto) [place] # (Auto) Eos # (Auto) Baso # (Auto) Abs Immat Gran (auto) Absolute Neuts (auto) Absolute Nucleated RBC Nucleated RBC % (auto) Sodium Potassium Chloride Carbon Dioxide Anion Gap BUN Creatinine Estim Creat Clear Calc Estimated GFR Random Glucose Fasting Glucose Calcium Urine Color Urine Appearance Urine pH Ur Specific [place] Urine Protein Urine Glucose (UA) Urine Ketones Urine Blood Urine Nitrite Ur Leukocyte Esterase Urine RBC Urine WBC Ur Squamous Epith Cells Urine Bacteria Urine Mucus COVID-19 (LISANDRO) Negative COVID-19 Clin Com See Note Blood Type Antibody Screen Airway Mallampati Class: II TM Dist: >3cm Neck ROM: Full Loose/Missing/Broken Teeth: Yes (Chipped top front) Heart: RRR Lungs: CTAB Assessment and Plan Assessment Anesthesia Assessment: Anesthesia Plan Discussed and Chart Reviewed Final Anesthetic Review Family History of Problems with Anesthesia: No History of Problems with Anesthesia: No NPO: Yes ASA Class: III Final Preanesthetic Review: No Changes in Pt Med Stat, Meds/Allgs Chart Reviewed, Consent Obtained/Reviewed and Anes Risks/Benef Reviewed Patient Risk: Intermediate Procedure Risk: Intermediate Assessment/Block/Sedation in SS: Assess/Block/Sedation- Anesthetic Plan Anesthetic Plan: GA Disposition: Standard PACU and Inp. Admit - Standard Bed
--- NOTE | 2021-09-06 14:02 | MHC.SHP ---
Pre-Procedural Eval Section A Date of Service: 09/06/21 The patient is an INPATIENT: Yes Changes since office visit: No Cold of Flu in the past 2 weeks, No New Medical Problems, No Changes in Medication and No Patient answered all questions The History & Physical has been completed within 30 days and I have reviewed it.: Yes Section B Chief Complaint: r distal femur fx and r distal radius / ulna fx Allergies: Allergies Allergy/AdvReac Type Severity Reaction Status Date / Time ibuprofen Allergy Unknown kidney Verified 06/24/14 00:00 problems Plan I have reviewed the history and physical and performed a pertinent physical examination on my patient. No changes have occurred unless specified.
[2021-09-06] MEDS: 0.9 % Sodium Chloride Flush 3 ML SYRINGE IVFLUSH (20:02)
[2021-09-06] MEDS: Dextrose 5 % and 0.45 % NaCl 1,000 ML 80 ML IVCONT (20:02)
[2021-09-06] MEDS: Docusate Sodium 100 MG CAPSULE PO (20:19)
--- NOTE | 2021-09-06 21:23 | PM.OP ---
Brief Operative Note Date of Service: 09/06/21 Pre-op diagnosis: right femur fracture RIght distal radius fracture Post-op diagnosis: other (same + right DRUJ dislocation) Procedure: 1) ORIF right femur 2)ORIF right distal radius 3) CRPP right DRUJ Implants: [place] distal femoral locking plate [place] distal radius locking plate Surgeon: Juan Miguel Alegria MD Anesthesia: GETA and local Was an Adoption Counselor used for this Procedure?: Yes Adoption Counselor: Lorenza Romero Estimated blood loss (mL): 300 Tourniquet time (min): 84 IV fluids (mL): 2,100 Pathology: none sent Condition: stable Disposition: PACU
[2021-09-06] MEDS: oxyCODONE HCl Immed Release 5 MG TABLET PO (21:57)
[2021-09-06] MEDS: Acetaminophen 325 MG TABLET 650 MG PO (22:00)
[2021-09-07] VITALS (8 sets, daily range): BP systolic 97–157; BP diastolic 59–89; PULSE 80–102; RESP 16–20; TEMP 36.3–37.6; O2SAT 97–100
[2021-09-07] MEDS: Ketorolac Tromethamine 15 MG/ML VIAL 30 MG IVPUSH (00:57)
[2021-09-07] MEDS: 0.9 % Sodium Chloride Flush 3 ML SYRINGE IVFLUSH ×2 (00:58→15:37)
[2021-09-07 05:42] LABS: Basophils Percent Auto 0.2 % (0-2); Eosinophils Percent Auto 0.1 % (0-4); Hematocrit 33.3 % (37-47); Hemoglobin 10.4 g/dl (12.0-16.0); Imm Gran Abs Auto 0.05 X10*3/uL (0.00-0.03); Imm Gran Pct Auto 0.4 % (0.0-0.4); Lymphocytes Absolute Auto 1.9 X10*3/uL (1.2-4.9); Lymphocytes Percent Auto 16.1 % (20-40); MANUAL DIFF FLAG SCAN; Mean Corpuscular HGB Conc 31.2 g/dl (31.0-35.0); Mean Corpuscular Hemoglobin 25.2 pg (27.0-33.0); Mean Corpuscular Volume 80.8 fL (80-98); Monocytes Absolute Auto 1.6 X10*3/uL (0.1-1.2); Monocytes Percent Auto 13.9 % (2-11); Neutrophils Absolute Auto 8.1 X10*3/uL (2.0-8.3); Neutrophils Percent Auto 69.3 % (45-73); Platelet Count 218 X10*3/uL (160-400); Red Blood Count 4.12 X10*6/uL (4.20-5.50); Red Cell Distribution Width 14.6 % (11.0-16.0); SCAN SMEAR FLAG 1; White Blood Count 11.7 X10*3/uL (4.8-10.8)
[2021-09-07] MEDS: HYDROmorphone HCl 0.5 MG/0.5 ML SYRINGE 0.25 MG IVPUSH ×3 (05:58→16:01)
[2021-09-07 06:00] LABS: SLIDE REVIEW VERIFIED
[2021-09-07 06:23] LABS: Anion Gap 10 (12-20); Blood Urea Nitrogen 15 mg/dL (9-16); Calcium 8.3 mg/dL (8.4-10.2); Carbon Dioxide 25 mmol/L (22-29); Chloride 104 mmol/L (96-108); Creatinine Clr Calc Pharmacy 86.3; Estimated Glomerular Filt Rate > 60; Glucose Fasting 123 mg/dL (60-99); Potassium 4.2 mmol/L (3.3-5.1); Sodium 135 mmol/L (135-145)
--- NOTE | 2021-09-07 06:52 | HO.POSTANES ---
Post Anesthesia Evaluation Post Anesthesia Evaluation Vital Signs: Vital Signs Temp Pulse Resp BP Pulse Ox 09/07/21 05:58 20 09/07/21 04:12 98 F 80 16 139/89 100 09/06/21 23:43 98.5 F 92 16 147/89 H 100 09/06/21 19:40 97.2 F 91 14 136/90 H 95 09/06/21 19:25 102 H 14 130/88 97 09/06/21 19:10 101 H 16 131/86 98 09/06/21 19:05 92 16 124/93 H 95 09/06/21 19:00 103 H 16 121/87 98 09/06/21 18:55 97.1 F 92 16 123/85 4 L Anesthesia: General Endotracheal-GETA Mental Status: Awake Pain Control: Satisfactory Nausea/Vomiting: None Hydration: Adequate Anesthesia-Related Issues: No Anes. Related Issues
[2021-09-07] MEDS: Docusate Sodium 100 MG CAPSULE PO ×2 (07:27→20:38)
[2021-09-07] MEDS: oxyCODONE HCl ER 10 MG TAB.ER.12H PO ×2 (07:27→20:38)
[2021-09-07] MEDS: Dextrose 5 % and 0.45 % NaCl 1,000 ML 80 ML IVCONT (07:33)
--- NOTE | 2021-09-07 09:30 | PM.PNORT ---
Subjective Subjective Date of Service: 09/07/21 Interval history: POD 1 sp ORIF rt distal femur and ORIF right distal radius with DRUJ pinnin No overnight events Restingng in chair used walker to ambulate to chair Physical Exam Vital Signs: Vital Signs: Last Vital Signs Temp 97.8 F 09/07/21 07:32 Pulse 89 09/07/21 08:29 Resp 17 09/07/21 07:32 BP 121/85 09/07/21 08:29 Pulse Ox 100 09/07/21 08:29 Body Mass Index 38.9 Const: General: cooperative, healthy appearing and no acute distress Resp: Effort & Inspection: normal respiratory effort and able to speak in complete sentences Cardio: Rate: regular rate Peripheral pulses: Peripheral pulses 2+ throughout GI: Palpation (GI): Soft to palpation Skin: General skin exam: no rashes or lesions noted Extrem: Other: bandage and splint clean dry and intact. No erythema or effusion. sensation intact to fingers wtih cap. refill. Calf supple nontender. Neurovascularly intact. Procedures Date of Service Date of Service: 09/07/21 Progress Note: A&P Assessment and plan (1) Fracture of wrist: Status: Acute Assessment and Plan: Continue pain mgmnt Begin lovneox for dvt ppx begin PT / OT for Rt distal femur ORIF-NWB Dispo planning-Pending PT eval, pain mgmnt (2) Closed femur fracture: Status: Acute Fall Risk Details Current Medications: Current Medications Acetaminophen (Acetaminophen 325 Mg Tablet) 650 mg PO Q6H PRN PRN Reason: Pain, Mild (Pain Scale 1-3) Last Admin: 09/06/21 22:00 Dose: 650 mg Documented by: Docusate Sodium (Docusate Sodium 100 Mg Capsule) 100 mg PO BID [facility] Last Admin: 09/07/21 07:27 Dose: 100 mg Documented by: Hydromorphone HCl (Hydromorphone Hcl 0.5 Mg/0.5 Ml Syringe) 0.25 mg IVPUSH Q4H PRN; Protocol PRN Reason: Pain, Severe (Pain Scale 7-10) Last Admin: 09/07/21 05:58 Dose: 0.25 mg Documented by: Dextrose/Sodium Chloride (D51/2ns) 1,000 mls @ 80 mls/hr IVCONT .[id number] [facility] Last Admin: 09/07/21 07:33 Dose: 80 mls/hr Documented by: Ondansetron HCl (Ondansetron Hcl 4 Mg/2 Ml Vial) 4 mg IVPUSH Q8H PRN PRN Reason: Nausea and Vomiting Oxycodone HCl (Oxycodone Hcl Immed Release 5 Mg Tablet) 5 mg PO Q4H PRN PRN Reason: Pain, Moderate (Pain Scale 4-6 Last Admin: 09/06/21 21:57 Dose: 5 mg Documented by: Oxycodone HCl (Oxycodone Hcl Er 10 Mg Tab.Er.12h) 10 mg PO BID [facility] Last Admin: 09/07/21 07:27 Dose: 10 mg Documented by: Sodium Chloride (0.9 % Sodium Chloride Flush 3 Ml Syringe) 3 ml IVFLUSH QSHIFT [facility] Last Admin: 09/07/21 07:29 Dose: Not Given Documented by: Time Spent With Patient Time: Total time spent is greater than 50% in coordination of care (as documented) at patient's floor/unit and/or counseling patient: Time with patient: less than 15 minutes Quality Stroke Does the patient have a stroke diagnosis?: No VTE Prior VTE?: No VTE Risk Level:: Surgical - high VTE Device Contraindication: N/A - Device Ordered VTE Drug Contraindication: Treatment Not Indicated (pre op)
[2021-09-07] MEDS: Acetaminophen 325 MG TABLET 650 MG PO ×2 (09:46→20:41)
[2021-09-07] MEDS: oxyCODONE HCl Immed Release 5 MG TABLET PO ×2 (09:47→20:40)
--- NOTE | 2021-09-07 11:59 | MHC.CM.PN ---
CM MET W/PT AND DTR MORGAN WHO WAS AT BEDSIDE TO DISCUSS ACUTE REHAB PREFERENCES, PT PT &DTR THEY PREFER [facility] AND [facility], REFERRALS MADE AND BOTH REHABS SHOWED INTEREST, [facility] IS AWARE THEY ARE FIRST CHOICE, PT FULLY VACCINATED W/[employer] VACCINE. [facility] CONTACTED AT 11:30AM AND AWARE THEY WILL BE RECEIVING REQUEST FOR AUTH.
--- NOTE | 2021-09-07 12:57 | HO.PM.IMPN ---
Subjective Subjective Date of Service: 09/07/21 Interval History: Seen in f/u for for yoel op, s/p right femur repair and right wrist repair. Review of Systems pain in hip, wrist no fever no chest pain no sob Physical Exam Vital Signs: Vital Signs: Last Vital Signs Temp 98.2 F 09/07/21 11:36 Pulse 102 H 09/07/21 11:36 Resp 17 09/07/21 11:36 BP 97/59 L 09/07/21 11:36 Pulse Ox 99 09/07/21 11:36 Body Mass Index 38.9 General: AO X 3, no acute distress Resp: CTA bilateral CVS: S1,S2,RRR GI: +BS, NT, no distention Skin: No rash--surgery site, dressing in place, MSK: right wrist/hand spint in place Neuro: motor grossly intact Psych: appropriate affect Objective Data Active Medications Acetaminophen (Acetaminophen 325 Mg Tablet) 650 mg PO Q6H PRN PRN Reason: Pain, Mild (Pain Scale 1-3) Last Admin: 09/07/21 09:46 Dose: 650 mg Documented by: ROXANA Docusate Sodium (Docusate Sodium 100 Mg Capsule) 100 mg PO BID [facility] Last Admin: 09/07/21 07:27 Dose: 100 mg Documented by: ROXANA Enoxaparin Sodium (Enoxaparin Sodium 40 Mg/0.4 Ml Syringe) 40 mg SUBCUT Q24H [facility] Hydromorphone HCl (Hydromorphone Hcl 0.5 Mg/0.5 Ml Syringe) 0.25 mg IVPUSH Q4H PRN; Protocol PRN Reason: Pain, Severe (Pain Scale 7-10) Last Admin: 09/07/21 10:53 Dose: 0.25 mg Documented by: ROXANA Dextrose/Sodium Chloride (D51/2ns) 1,000 mls @ 80 mls/hr IVCONT .[id number] [facility] Last Admin: 09/07/21 07:33 Dose: 80 mls/hr Documented by: ROXANA Ondansetron HCl (Ondansetron Hcl 4 Mg/2 Ml Vial) 4 mg IVPUSH Q8H PRN PRN Reason: Nausea and Vomiting Oxycodone HCl (Oxycodone Hcl Immed Release 5 Mg Tablet) 5 mg PO Q4H PRN PRN Reason: Pain, Moderate (Pain Scale 4-6 Last Admin: 09/07/21 09:47 Dose: 5 mg Documented by: ROXANA Oxycodone HCl (Oxycodone Hcl Er 10 Mg Tab.Er.12h) 10 mg PO BID [facility] Last Admin: 09/07/21 07:27 Dose: 10 mg Documented by: ROXANA Sodium Chloride (0.9 % Sodium Chloride Flush 3 Ml Syringe) 3 ml IVFLUSH QSHIFT [facility] Last Admin: 09/07/21 07:29 Dose: Not Given Documented by: ROXANA Non-Admin Reason: IV Running Labs CBC & Chem 7: 09/07/21 05:13 09/07/21 05:13 Labs: Laboratory Results - last 24 hr 09/07/21 09/07/21 05:13 05:13 MCV 80.8 MCH 25.2 L MCHC 31.2 RDW 14.6 Plt Count 218 MPV 9.0 L Immature Gran % (Auto) 0.4 Neut % (Auto) 69.3 Lymph % (Auto) 16.1 L [place] % (Auto) 13.9 H Eos % (Auto) 0.1 Baso % (Auto) 0.2 Lymph # (Auto) 1.9 [place] # (Auto) 1.6 H Eos # (Auto) 0.0 Baso # (Auto) 0.0 Abs Immat Gran (auto) 0.05 H Absolute Neuts (auto) 8.1 Absolute Nucleated RBC 0.000 Nucleated RBC % (auto) 0.0 Smear Tech's Comments VERIFIED Anion Gap 10 L Estim Creat Clear Calc 86.3 Estimated GFR > 60 Fasting Glucose 123 H Calcium 8.3 L D Assessment and Plan (1) Fracture of wrist: Status: Acute (2) Closed femur fracture: Status: Acute (3) HTN (hypertension): Status: Acute (4) GERD (gastroesophageal reflux disease): Status: Acute Assessment and Plan: 56 year old female with HTN, GERD here with mechanical fall resulting in? right distal femur fracture and a right distal radius fracture 1/?) ORIF right femur 2)ORIF right distal radius 3) CRPP right DRUJ --managment by ortho 2/HTN--BP on lower side, no symptoms, monitor 3/ GERD--PPI. 4/DVT prophylaxis Lovenox Will sing off and follow on PRN basis Quality Stroke Does the patient have a stroke diagnosis?: No VTE Prior VTE?: No VTE Risk Level:: Surgical - high VTE Device Contraindication: N/A - Device Ordered VTE Drug Contraindication: Treatment Not Indicated (pre op)
[2021-09-07] MEDS: Enoxaparin Sodium 40 MG/0.4 ML SYRINGE SUBCUT (17:32)
[2021-09-08] VITALS (7 sets, daily range): BP systolic 115–135; BP diastolic 52–79; PULSE 98–99; RESP 16–20; TEMP 36.7–36.8; O2SAT 95–99
[2021-09-08] MEDS: 0.9 % Sodium Chloride Flush 3 ML SYRINGE IVFLUSH ×2 (00:49→08:04)
[2021-09-08] MEDS: HYDROmorphone HCl 0.5 MG/0.5 ML SYRINGE 0.25 MG IVPUSH ×3 (00:52→10:10)
[2021-09-08] MEDS: oxyCODONE HCl Immed Release 5 MG TABLET PO ×2 (04:18→08:04)
[2021-09-08 05:39] LABS: MANUAL DIFF FLAG NO
[2021-09-08 05:49] LABS: Basophils Percent Auto 0.2 % (0-2); Eosinophils Percent Auto 0.1 % (0-4); Hematocrit 28.9 % (37-47); Hemoglobin 9.3 g/dl (12.0-16.0); Imm Gran Abs Auto 0.07 X10*3/uL (0.00-0.03); Imm Gran Pct Auto 0.7 % (0.0-0.4); Lymphocytes Absolute Auto 1.5 X10*3/uL (1.2-4.9); Mean Corpuscular HGB Conc 32.2 g/dl (31.0-35.0); Mean Corpuscular Hemoglobin 25.9 pg (27.0-33.0); Mean Corpuscular Volume 80.5 fL (80-98); Mean Platelet Volume 9.7 fL (9.4-12.3); Monocytes Absolute Auto 1.2 X10*3/uL (0.1-1.2); Monocytes Percent Auto 12.1 % (2-11); Neutrophils Percent Auto 71.9 % (45-73); Platelet Count 193 X10*3/uL (160-400); Red Blood Count 3.59 X10*6/uL (4.20-5.50); Red Cell Distribution Width 14.5 % (11.0-16.0); White Blood Count 9.7 X10*3/uL (4.8-10.8)
[2021-09-08 06:10] LABS: Anion Gap 11 (12-20); Blood Urea Nitrogen 15 mg/dL (9-16); Calcium 8.7 mg/dL (8.4-10.2); Carbon Dioxide 25 mmol/L (22-29); Chloride 104 mmol/L (96-108); Creatinine Clr Calc Pharmacy 97.2; Estimated Glomerular Filt Rate > 60; Glucose Fasting 114 mg/dL (60-99); Potassium 4.1 mmol/L (3.3-5.1); Sodium 136 mmol/L (135-145)
[2021-09-08] MEDS: Acetaminophen 325 MG TABLET 650 MG PO (08:03)
[2021-09-08] MEDS: oxyCODONE HCl ER 10 MG TAB.ER.12H PO (08:04)
[2021-09-08] MEDS: Docusate Sodium 100 MG CAPSULE PO (08:04)
--- NOTE | 2021-09-08 10:34 | P.DS_ITS ---
DS: Providers Provider Date of Service: 09/08/21 Date of admission: 09/05/21 14:22 Primary care physician: [facility] Consults: 09/05/21 17:42 Consult to Hospitalist Routine Consulting Provider: Hospitalist Reason For Exam: routine medical management DS: Diagnosis Discharge Diagnosis (1) Fracture of wrist: Status: Acute (2) Closed femur fracture: Status: Acute (3) HTN (hypertension): Status: Acute (4) GERD (gastroesophageal reflux disease): Status: Acute DS: Summary Hospital Course Hospital Course: Amanda Santiago is a 56 year old female with a PMH of HTN who presented to the ED after sustaining a fall . She states she was in her pantry when she tripped over something and fell. She states her right knee went behind her and she also fall onto her right wrist. She was transported to the ED, xrays obtained which showed a right distal femur fracture and a right distal radius fracture. The right wrist was reduced in the ED, placed in a splint. Orthopedics was contacted for admission and surgical planning. The patient lives at home with her brother, she is right hand dominant. She does not use any assistive devices for ambulation. She performs all ADLs. The patient underwent a successful ORIF of the right distal radius and ORIF of the right distal femur, was transferred to PACU and then to the floor to recover. During their stay, their vitals were stable, afebrile at 98.3. Labs were unremarkable, H/H . POD 1 she was started on Lovenox for DVT ppx, they also received physical therapy and occupational therapy services twice a day. Prior to discharge, their dressing was change, incision clean dry and intact, new Aquacel dressing applied and the plan was to be discharged to short-term rehab. Time Spent with Patient Time attestation: Total time spent providing and/or coordinating discharge services: Discharge coordination time: Less than 30 minutes Quality: Stroke Does the patient have a stroke diagnosis?: No Physical Exam Vital Signs: Vital Signs: Last Vital Signs Temp 98.3 F 09/08/21 07:54 Pulse 99 09/08/21 07:54 Resp 17 09/08/21 07:54 BP 135/79 09/08/21 07:54 Pulse Ox 99 09/08/21 07:54 Body Mass Index 38.9 Const: General: cooperative, healthy appearing and no acute distress Resp: Effort & Inspection: normal respiratory effort and able to speak in complete sentences Cardio: Rate: regular rate Peripheral pulses: Peripheral pulses 2+ throughout GI: Palpation (GI): Soft to palpation Skin: General skin exam: no rashes or lesions noted Extrem: Other: Right distal femur incision clean dry and intact. Keegan intact. No erythema or joint effusion. Calf supple nontender. Neurovascularly intact. Right wrist splint clean dry and intact. She is able to move all fingers and has sensation and capillary refill intact. DS: Data Data Completed and Pending Labs on day of discharge: Laboratory Results - last 24 hr 09/08/21 09/08/21 05:15 05:15 WBC 9.7 RBC 3.59 L Hgb 9.3 L Hct 28.9 L MCV 80.5 MCH 25.9 L MCHC 32.2 RDW 14.5 Plt Count 193 MPV 9.7 Immature Gran % (Auto) 0.7 H Neut % (Auto) 71.9 Lymph % (Auto) 15.0 L [place] % (Auto) 12.1 H Eos % (Auto) 0.1 Baso % (Auto) 0.2 Lymph # (Auto) 1.5 [place] # (Auto) 1.2 Eos # (Auto) 0.0 Baso # (Auto) 0.0 Abs Immat Gran (auto) 0.07 H Absolute Neuts (auto) 7.0 Absolute Nucleated RBC 0.000 Nucleated RBC % (auto) 0.0 Sodium 136 Potassium 4.1 Chloride 104 Carbon Dioxide 25 Anion Gap 11 L BUN 15 Creatinine 0.71 Estim Creat Clear Calc 97.2 Estimated GFR > 60 Fasting Glucose 114 H Calcium 8.7 Discharge Plan Discharge Patient Disposition: [facility] Discharge Diagnosis: s/p ORIF right femur, s/p ORIF right wrist Referrals: Bryon Stroud PA-C [Phys[facility] [employer]] - 1 Week Discharge Medications: New docusate sodium 100 mg Capsule 100 mg PO BID 14 Days Qty: 28 RF: 0 oxycodone 10 mg tablet 10 mg PO Q4H PRN (Reason: Pain, Moderate (Pain Scale 4-6) 7 Days Qty: 42 RF: 0 acetaminophen 325 mg Tablet 650 mg PO Q6H PRN (Reason: Pain, Mild (Pain Scale 1-3)) 30 Days Qty: 240 RF: 0 enoxaparin 40 mg/0.4 mL Syringe 40 mg subcut Q24H 42 Days Qty: 16.8 RF: 0 Continued lisinopril-hydrochlorothiazide 20-12.5 mg tablet 1 tab PO DAILY RF: 0 amlodipine 5 mg tablet 1 tab PO BEDTIME RF: 0 pantoprazole 40 mg tablet,delayed release (DR/EC) 1 tab PO DAILY RF: 0 Discharge Orders: Discharge Order (Routine); Ordered 09/08/21 Ordered By: Bryon Stroud Diet: regular diet Activity on Discharge: Use cane or walker Stand Alone Forms: Patient Portal Discharge page Care Plan Goals: Restore function of joint Health Concerns: none Plan of Treatment: Physical Therapy Pain management DVT prophylaxis Assessment: ORIF RIGHT FEMUR * NWB x6 weeks * NWB ROM as tolerated , isometric quad exercises, SLR * Continue lovenox x 6 weeks * No tub bath or shower-Keep dressing clean, dry and intact ORIF RIGHT DISTAL RADIUS * Keep splint clean, dry and intact * Elevate throughout the day * No heavy lifting * Perform fist/ finger exercises throughout the day * Do not bathe or shower--keep splint dry * Call [facility] orthopedics with any questions or concerns. * Follow up with orthopedics in 7-10 days post op
--- NOTE | 2021-09-08 11:02 | MHC.CM.PN ---
PT TO BE TRANSFERRED TO [facility] AT 12 PT AND FAMILY [facility]
[2021-09-08] MEDS: oxyCODONE HCl Immed Release 5 MG TABLET 10 MG PO (12:24)
--- NOTE | 2021-09-15 14:24 | W.PM.OPN ---
Operative Note Operative Note Date of Service: 09/06/21 Narrative: Pre-op diagnosis: right femur fracture RIght distal radius fracture Post-op diagnosis: other (same + right DRUJ dislocation) Procedure: 1) ORIF right femur 2)ORIF right distal radius 3) CRPP right DRUJ Implants: [place] distal femoral locking plate James distal radius locking plate Surgeon: Juan Miguel Alegria MD Anesthesia: GETA and local Was an Geophysical Prospecting Permit Agent used for this Procedure?: Yes Geophysical [employer]ing Permit Agent: Lorenza Romero Estimated blood loss (mL): 300 Tourniquet time (min): 84 IV fluids (mL): 2,100 Pathology: none sent Condition: stable Disposition: PACU Procedure in detail: Patient brought the operating room placed supine on the operative table and prepped and draped in standard sterile fashion. A time-out was called to identify proper site proper procedure proper surgeon IV antibiotics per weight were administered. I began by making a direct lateral approach to the distal femur. Traction and rotation were used to provisionally reduced the fracture. Sharp dissection was taken down through the tensor fascia and a for bruise retractor was placed over the fracture fragments to rid reduce this both on the AP and lateral radiographic projection. Once I was satisfied with of rejection a long bridging locking plate was placed alongside the femur. Once I was happy that the proximal aspect of the spanned at least 2 diameters proximal to the distal end of total hip stem I provisionally placed the plate along the distal femur. A true lateral projection was obtained and locking screws were placed distally and proximally to span the fracture. I had excellent fracture reduction and placed 2 periprosthetic screws Uni cortically long the distal tip of the prosthesis and then 4 locking screws proximal to the fracture. I was satisfied with stability of the fracture and took the knee through range of motion and was satisfied with the fixation. The proximal screws were placed percutaneously. I then irrigated copiously and closed with absorbable suture and estela. Patient was placed in a sterile dressing. I then turned my attention to the distal radius. Procedure in detail: The limb was prepped and draped in standard fashion and a time-out was called to identify proper site procedure proper surgeon. IV antibiotics per weight were administered. I began by exsanguinating the limb and insufflating the tourniquet to 250 mm Hg. I then made a standard incision over the FCR. FCR sheath was incised and the FCR was retracted ulnar. A gloria incision was made in the FPL sheath and this was opened up proximally and distally. The FPL was swept aside revealing the pronator quadratus which was periosteally elevated off the distal radius revealing a comminuted and displaced distal radius fracture. I used a [place] and right your to remove necrotic debris and reduced the fracture. Using biplanar fluoroscopy I was satisfied with the reduction . A 0.54 K-wire was placed through the radial styloid into the radial shaft to provisionally maintain the reduction. A [place] distal radius plate was selected and placed on the distal radius. Fluoroscopic images were taken to confirm appropriate alignment on the AP and lateral projection. Once I was satisfied with this the distal row screws were placed using standard AO technique. The most distal radial styloid screw was displacing the fragment and such a way that it appeared preferential to exclude this screw from use. Once this was done I had excellent recreation of the radial height and inclination and on the lateral I had a neutral tilt. I then filled the proximal row with locking screws again confirming fracture reduction and hardware position using biplanar fluoroscopy. Once this was done I placed 2 proximal nonlocking screws through the cortical shaft reducing the plate to the bone and reapproximating the anatomic tilt of the distal radius on the lateral projection. Again once I was satisfied with the position of the plate and the fracture alignment all instrumentation was removed. The DRUJ was assessed and found to be markedly un-stable. I placed a 0.54 K-wire provisionally from ulnar to radial with the so she ulna in a reduced position. I obtained my final radiographs and a layered closure was performed with absorbable sub-Q suture, a running prolene and skin glue. Sterile dressings were applied. Patient was placed into a well-padded sugar-tong splint. Patient was extubated brought to recovery room in stable condition there were no known complications.
== END 2021-09-08 14:23 | disposition skilled nursing facility (03) | DRG 481 ==
LOC: HO.ED 14:41 → HO.EDOVER 14:42 → HO.S3 20:31
PROVIDERS: Orthopaedic Surgery; Admitting Provider Physician Assistant; Emergency Provider Emergency Medicine; Visit Provider Physician Assistant
PROC: 0QSB04Z Reposition Right Lower Femur with Internal Fixation Device, Open Approach (ICD-10-PCS; principal; 2021-09-06 13:20)
PROC: 0QSB04Z Reposition Right Lower Femur with Internal Fixation Device, Open Approach (ICD-10-PCS; 2021-09-06 13:20)
DX: S72.451A Displaced supracondylar fracture without intracondylar extension of lower end of right femur, initial encounter for closed fracture (principal); S52.601A Unspecified fracture of lower end of right ulna, initial encounter for closed fracture; S52.571A Other intraarticular fracture of lower end of right radius, initial encounter for closed fracture; W01.0XXA Fall on same level from slipping, tripping and stumbling without subsequent striking against object, initial encounter; Y93.9 Activity, unspecified; Y92.000 Kitchen of unspecified non-institutional (private) residence as the place of occurrence of the external cause; I10 Essential (primary) hypertension; K21.9 Gastro-esophageal reflux disease without esophagitis; Z20.822 Contact with and (suspected) exposure to COVID-19; Z79.899 Other long term (current) drug therapy
CPT/HCPCS: 36415; 71045; 72170; 73090; 73110; 73130; 73552; 73560; 80048; 81001; 85025; 86850; 86900; 86901; 87635; 93005; 96372; 96374; 97110; 97163; 97167; 99285; C1713; J0131; J0690; J1100; J1170; J1650; J1885; J2250; J2405; J3010

== ENCOUNTER 2021-09-22 05:06 | Outpatient (REF) | payer OTHER, SELFPAY ==
--- NOTE | ~2021-09-22 | XR_ITS ---
EXAMINATION: XR FEMUR, RIGHT CLINICAL INFORMATION: Fracture COMPARISON: 09/05/2021 TECHNIQUE: AP and lateral views of the right femur were obtained. FINDINGS: Total right hip arthroplasty. The femoral head component articulates appropriately with its acetabulum component. Plate and screw fixation hardware is present along the lateral femur extending to the distal femur. The comminuted distal femoral fracture shows near-anatomic alignment of the major fragments with displaced medial fragment remaining. Alignment of the knee and hip are maintained. XR/XR femur RT 2V IMPRESSION: Internal fixation of the comminuted distal femoral fracture with near-anatomic alignment of the major fragments.
--- NOTE | ~2021-09-22 | XR_ITS ---
EXAMINATION: XR WRIST, RIGHT CLINICAL INFORMATION: Pain in the right wrist COMPARISON: 09/05/2021 TECHNIQUE: Two views of the right wrist. FINDINGS: Spleen and screw fixation hardware is present at the volar aspect of the distal radius. K wire extends between the distal radius and ulna. The distal radial fracture is near-anatomic in alignment with appropriate alignment of the distal radius and ulna. Ulnar styloid fracture remains displaced. Degenerative change at the radiocarpal articulation. The carpal bones appear aligned appropriately. Soft tissue swelling. XR/XR wrist RT 2V IMPRESSION: Internal fixation of the distal radial fracture with appropriate alignment.
== END 2021-09-22 05:07 | disposition home or self-care (01) ==
LOC: HO.HOSX 05:06
PROVIDERS: Visit Provider Physician Assistant
DX: S62.109D Fracture of unspecified carpal bone, unspecified wrist, subsequent encounter for fracture with routine healing (principal); S72.90XD Unspecified fracture of unspecified femur, subsequent encounter for closed fracture with routine healing
CPT/HCPCS: 29105; 73100; 73552; 99212

== ENCOUNTER 2021-09-29 10:56 | Outpatient (REF) | payer OTHER, SELFPAY ==
--- NOTE | ~2021-09-29 | XR_ITS ---
EXAMINATION: XR WRIST, RIGHT CLINICAL INFORMATION: Right wrist pain. COMPARISON: Right wrist done on 09/22/2021. TECHNIQUE: PA, lateral, and oblique views of the right wrist. FINDINGS: Mild diffuse osteopenia. Postsurgical changes of distal radial ORIF with intact hardware and satisfactory alignment. K wire has been removed in the interim. Interval placement of a cast. No other significant interval change. No new abnormalities. XR/XR wrist RT min 3V IMPRESSION: Compared to prior study dated 09/22/2021, interval removal of K wire and interval placement of a cast are noted. No other significant change. No new abnormalities.
== END 2021-09-29 10:57 | disposition home or self-care (01) ==
LOC: HO.HOSX 10:56
PROVIDERS: Visit Provider Physician Assistant
DX: S62.101D Fracture of unspecified carpal bone, right wrist, subsequent encounter for fracture with routine healing (principal); S72.451D Displaced supracondylar fracture without intracondylar extension of lower end of right femur, subsequent encounter for closed fracture with routine healing
CPT/HCPCS: 29075; 73110; 99212

== ENCOUNTER → 2021-10-06 10:44 | Outpatient (BNVA) | payer OTHER, SELFPAY | PROVIDERS: Visit Provider Orthopaedic Surgery | DX: S72.90XD Unspecified fracture of unspecified femur, subsequent encounter for closed fracture with routine healing (principal); S62.109D Fracture of unspecified carpal bone, unspecified wrist, subsequent encounter for fracture with routine healing | CPT/HCPCS: 99212 ==

== ENCOUNTER → 2021-10-13 12:13 | Outpatient (BNVA) | payer OTHER, SELFPAY | PROVIDERS: Visit Provider Physician Assistant | DX: S42.414A Nondisplaced simple supracondylar fracture without intercondylar fracture of right humerus, initial encounter for closed fracture (principal); X58.XXXA Exposure to other specified factors, initial encounter; Y93.9 Activity, unspecified; Y92.9 Unspecified place or not applicable; Y99.8 Other external cause status; T84.114A Breakdown (mechanical) of internal fixation device of right femur, initial encounter; I10 Essential (primary) hypertension; K21.9 Gastro-esophageal reflux disease without esophagitis; Z96.641 Presence of right artificial hip joint | CPT/HCPCS: 99212 ==

== ENCOUNTER 2021-10-23 10:33 | Outpatient (REF) | payer OTHER, SELFPAY ==
--- NOTE | ~2021-10-23 | XR_ITS ---
EXAMINATION: XR FEMUR, RIGHT CLINICAL INFORMATION: Follow-up femur fracture COMPARISON: 09/05/2021 and 09/22/2021 TECHNIQUE: AP and lateral views of the right femur were obtained. FINDINGS: At the hip, the femoral head prosthesis is well centered within the acetabular cup, which is stabilized by intact superior screws. No loosening of components of the total hip arthroplasty. Again noted is a comminuted fracture of the distal femoral metadiaphysis. The major fragments are reduced into near-anatomic position. A butterfly fragment is medially displaced by 1 cm. The lateral femoral fixation plate and screws are in stable position compared to 09/22/2021. The fixation plate is offset from the cortex by up to 1.1 cm at the level of the mid diaphysis.. No hardware loosening. There are some areas of early periosteal reaction at fracture margins. Currently, there is no evidence of any significant fracture healing. The bones have normal alignment at the knee. XR/XR femur RT 2V IMPRESSION: Status post open reduction internal fixation of the comminuted fractures of the distal femur. The major femoral fragments are reduced into near-anatomic position, and are unchanged in position compared to 09/22/2021.
--- NOTE | ~2021-10-23 | XR_ITS ---
EXAMINATION: XR WRIST, RIGHT CLINICAL INFORMATION: Wrist pain. COMPARISON: 09/05/2021 and 09/22/2021 TECHNIQUE: PA, lateral, and oblique views of the right wrist. FINDINGS: Interval removal of fiberglass cast. Bones are diffusely osteopenic. Again noted is the open reduction, internal fixation of the comminuted intra-articular fracture of the distal radius. The reduction is anatomic. The previously observed fracture lines involving the radial articular surface have become less conspicuous. There appears to be some periosteal new bone forming at fracture margins. The volar fixation plate and screws are in satisfactory position. A well-corticated ossicle is seen in the region of the ulnar styloid. No carpal bone fracture. Mild osteoarthritis of the first carpometacarpal joint. Soft tissues are swollen in the distal forearm and wrist. XR/XR wrist RT min 3V IMPRESSION: Status post open reduction and internal fixation of the comminuted intra-articular fracture of the distal radius. There is evidence of early healing. No fixation hardware complications.
== END 2021-10-23 10:34 | disposition home or self-care (01) ==
LOC: HO.HOSX 10:33
PROVIDERS: Visit Provider Physician Assistant
DX: S62.101D Fracture of unspecified carpal bone, right wrist, subsequent encounter for fracture with routine healing (principal); S72.91XD Unspecified fracture of right femur, subsequent encounter for closed fracture with routine healing
CPT/HCPCS: 73110; 73552; 99212

== ENCOUNTER 2021-12-04 07:08 | Outpatient (REF) | payer OTHER, SELFPAY ==
--- NOTE | ~2021-12-04 | XR_ITS ---
EXAMINATION: 1. RADIOGRAPHS RIGHT WRIST 2. RADIOGRAPHS RIGHT FEMUR CLINICAL INFORMATION: Pain of the right wrist and right femur. COMPARISON: Right wrist and right femur x-rays 10/23/2021 TECHNIQUE: 3 views of the right wrist and 2 views of the right femur were obtained. FINDINGS: Right wrist: Diffuse osteopenia. Stable postsurgical changes of the distal right radius. There has been interval callus formation with the fracture line now only poorly visualized. No gross carpal or metacarpal fracture. Mild degenerative changes of the wrist. Right femur: Stable appearance of total right hip replacement hardware in addition to fixation plate and screws running the length of the lateral right femur. There is no evidence of hardware failure. There has been partial interval healing of a comminuted distal femoral fracture although several fracture lines are still subtly visible. XR/XR femur RT 2V IMPRESSION: -Interval healing of distal right radial fracture. No evidence of hardware failure of the right wrist. -Interval healing of distal right femoral fracture. No evidence of hardware failure of the right femur.
--- NOTE | ~2021-12-04 | XR_ITS ---
EXAMINATION: 1. RADIOGRAPHS RIGHT WRIST 2. RADIOGRAPHS RIGHT FEMUR CLINICAL INFORMATION: Pain of the right wrist and right femur. COMPARISON: Right wrist and right femur x-rays 10/23/2021 TECHNIQUE: 3 views of the right wrist and 2 views of the right femur were obtained. FINDINGS: Right wrist: Diffuse osteopenia. Stable postsurgical changes of the distal right radius. There has been interval callus formation with the fracture line now only poorly visualized. No gross carpal or metacarpal fracture. Mild degenerative changes of the wrist. Right femur: Stable appearance of total right hip replacement hardware in addition to fixation plate and screws running the length of the lateral right femur. There is no evidence of hardware failure. There has been partial interval healing of a comminuted distal femoral fracture although several fracture lines are still subtly visible. XR/XR wrist RT min 3V IMPRESSION: -Interval healing of distal right radial fracture. No evidence of hardware failure of the right wrist. -Interval healing of distal right femoral fracture. No evidence of hardware failure of the right femur.
== END 2021-12-04 07:09 | disposition home or self-care (01) ==
LOC: HO.HOSX 07:08
PROVIDERS: Visit Provider Physician Assistant
DX: S72.451D Displaced supracondylar fracture without intracondylar extension of lower end of right femur, subsequent encounter for closed fracture with routine healing (principal); S62.101D Fracture of unspecified carpal bone, right wrist, subsequent encounter for fracture with routine healing
CPT/HCPCS: 73110; 73552; 99212

== ENCOUNTER 2022-01-08 13:00 | Outpatient (RCR) | payer OTHER, SELFPAY ==
--- NOTE | 2021-12-14 14:45 | MHC.OT.OEV ---
[address] [phone] F: [phone] Occupational Therapy Evaluation Diagnosis: Right distal radius and distal ulna fx; post-op ORIF and CRPP Date of Surgery: 09/06/21 Attending Provider: Lorenza Romero PA-C Prescribed Treatment: Eval and Treat History of Current Condition: 56 year old female with a PMH of HTN who presented to the ED after sustaining a fall . She states she was in her pantry when she tripped over something and fell. She states her right knee went behind her and she also fall onto her right wrist. She was transported to the ED, xrays obtained which showed a right distal femur fracture and a right distal radius fracture. The right wrist was reduced in the ED, placed in a splint. Orthopedics was contacted for admission and surgical planning. S/P ORIF DISTSAL FEMUR, ORIF DISTAL RADIUS, CRPP R DRUJ ON 09/06/21. Pt [place] [facility] [place] [facility], then was having home therapy services until a few weeks ago. Now referred to outpatient OT/PT to continue care. 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, Employment, Leisure: Ind w/ daily activities, enjoys crosswords, crafts/painting, spending time with family Living Situation, Family and/or Social Support: Lives on first floor of three family home with her brother Current Level of Function and Occupation Self Care, Employment, Leisure: Able to ambulate w/ platform walker to bathroom w/ commode, has grab bars and shower seat Sleep: No issues sleeping Driving: Not driving currently Pain Assessment Pain Score: 5 Pain Scale Used: Numeric (0 - 10) Pain Location and Description: Pain free at rest, some pain/ache radiating into digits w/ movement/use, up to 5/6 Aggravating Factors: Movement of digits Alleviating Factors: Tylenol Skin Assessment Comments: Well healing scars on volar wrist and ulnar wrist, light pink, mobile soft scar tissue Nerve assessment Ulnar Nerve: WNL Median Nerve: WNL Radial Nerve: WNL Sensory Assessment Comments: Hypersensitivity and tinging in thumb (expect thenar eminance) Edema Assessment Comments: Wrist crease R 17cm L 16.7cm Dexterity Assessment Comments: Nine Hole Peg R 31 sec L 26 sec AROM(PROM) Strength Cervical Cervical Flexion: Cervical Extension: Cervical Lateral Flexion: Cervical Rotation: Comments: WFL Shoulder Flexion: Extension: Abduction: Internal Rotation: External Rotation: Comments: WFL Flexion: Extension: Abduction: Internal Rotation: External Rotation: Comments: Elbow Flexion: Extension: Pronation: R 70 L 70 Supination: R 80 L 85 Comments: Flexion: Extension: Pronation: Supination: Comments: Wrist Flexion: R 40 L 26 Extension: R 60 L 70 Ulnar Deviation: Radial Deviation: Comments: Pt reports hx of carpectomy in the right hand, pt w/ dorsal scar, ? lunate Flexion: Extension: Ulnar Deviation: Radial Deviation: Comments: Grossly 4/5 Thumb Thumb CMC Flexion: Thumb MCP Flexion: Thumb IP Flexion: Radial Abduction: R 35 L 55 Palmar Abduction: R 50 L 50 [place] (Kapandji 0-10): R 8 L 9 Comments: Digits Index MCP: PIP: DIP: Long MCP: PIP: DIP: Ring MCP: PIP: DIP: Small MCP: PIP: DIP: Comments: R 1 cm tip to palm D2-D5 Gross Grasp: R 8 lbs L 55 lbs Lateral Pinch: Two-Point Pinch: Three-Jaw Cresencio: Comments: Patient Education Primary Language: Uzbek Title Supervisor Required: No Current Knowledge: Understands information with skills for self-management Teaching Method: Demonstration Handouts Verbal Education Needs Identified on Evaluation: ADL's Disease Information Equipment Use Exercise Pain Safety How did patient/family demonstrate learning? Patient demonstrates Patient verbalizes Family/SO demonstrates Family/SO verbalizes Barriers to Learning: None Readiness for Learning: Accepting Who was educated? Patient Family/spouse Comments: Daughter present and supportive Plan of Care Assessment: 56 yo female presents about 14 weeks s/p fall w/ right femur fx and right distal radius fx, she is s/p repair w/ ORIF and CRPP to right wrist. She is out of cast and has been given prefab orthosis, which she has mostly weaned from wearing. 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 She will benefit from cont'd therapy services to progress functional use, strengthening and weightbearing through wrist/hand for increased ease/efficiency w/ RW use. STG Duration: 2 Short Term Goals: Ind w/ HEP Ind w/ edema management Right gross grasp >15lb Right wrist flex >50 degrees LTG Duration: 4 [address] Patcher Goals: Right gross grasp >30lb Right wrist flex 55 degrees Pt to demo good use of right hand w/ bimanual weightbearing through RW Pain free w/ moderate use of right hand w/ daily activities Quickdash <25 pts Frequency and Duration: The patient will be seen 2x/wk for 4 weeks Treatment Plan: Therapeutic Exercise Therapeutic Activity Home Exercise Program Patient Education Desensitization/Sensory Re-ed Edema Control ADL Training Ultrasound Paraffin Fluidotherapy MHP Cold Packs Joint Mobilization Soft Tissue Mobilization Kinesiotaping Electronically Signed By: Sophia Huizar OTR/L CHT Reviewed/agree with student documentation: N/A Therapist: Please sign and return to therapist, Thank you for your referral.
--- NOTE | 2022-01-08 13:36 | MHC.OT.DC ---
[address] [phone] F: [phone] Occupational Therapy Discharge Note Provider: Lorenza Romero PA-C Diagnosis: Right distal radius and distal ulna fx; post-op ORIF and CRPP Date of Surgery: 09/06/21 Date of Evaluation: 12/14/21 Date of Discharge: 01/08/2022 Treatments to Date: 4 Cancellations to Date: 1 Discharge Status: Achieved Goals Improved Function Independent with HEP Discharge Summary: Amanda is four month post-op right wrist ORIF s/p DRF. Therapy goals have been met. She is progressing well in all aspects w/ no significant functional limitations, some difficulty w/ jars. Good follow through w/ HEP and self management of wrist, continues to go to physical therapy. Electronically Signed By: Sophia Huizar OTR/L CHT Please Sign and return to therapist, thank you for your referral.
== END 2022-01-08 13:37 | disposition home or self-care (01) ==
LOC: HO.OT 13:00
PROVIDERS: PCP Internal Medicine Geriatric Medicine; Visit Provider Physician Assistant
DX: S62.101D Fracture of unspecified carpal bone, right wrist, subsequent encounter for fracture with routine healing (principal)
CPT/HCPCS: 97110; 97165

== ENCOUNTER 2022-01-22 08:10 | Outpatient (REF) | payer OTHER, SELFPAY ==
--- NOTE | ~2022-01-22 | XR_ITS ---
EXAMINATION: XR FEMUR, RIGHT XR WRIST, RIGHT CLINICAL INFORMATION: Fracture follow up. COMPARISON: Right femur on 12/04/21 and 10/23/2021. Right wrist 12/04/2021. TECHNIQUE: Right femur 2 views. Right wrist 3 views. FINDINGS: RIGHT FEMUR: There is a total right hip prosthesis in satisfactory alignment. There is a lateral metallic plate and screws stabilizing an old healed distal femoral fracture with slight hypertrophic callus formation along the medial aspect. The hardware appears intact. RIGHT WRIST: There is volar distal radial plate and screws for an old healed fracture. The hardware appears intact. No new fracture seen. There is diffuse osteopenia of the carpal bones and the right hand. XR/XR femur RT 2V IMPRESSION: Total right hip prosthesis in alignment. Lateral femoral plate and screws for an old healed fracture intact with a healed distal femoral fracture. There is hypertrophic callus formation along the medial cortex. Healed distal radial fracture is stabilized with ventral plate and screws, stable.
--- NOTE | ~2022-01-22 | XR_ITS ---
EXAMINATION: XR FEMUR, RIGHT XR WRIST, RIGHT CLINICAL INFORMATION: Fracture follow up. COMPARISON: Right femur on 12/04/21 and 10/23/2021. Right wrist 12/04/2021. TECHNIQUE: Right femur 2 views. Right wrist 3 views. FINDINGS: RIGHT FEMUR: There is a total right hip prosthesis in satisfactory alignment. There is a lateral metallic plate and screws stabilizing an old healed distal femoral fracture with slight hypertrophic callus formation along the medial aspect. The hardware appears intact. RIGHT WRIST: There is volar distal radial plate and screws for an old healed fracture. The hardware appears intact. No new fracture seen. There is diffuse osteopenia of the carpal bones and the right hand. XR/XR wrist RT min 3V IMPRESSION: Total right hip prosthesis in alignment. Lateral femoral plate and screws for an old healed fracture intact with a healed distal femoral fracture. There is hypertrophic callus formation along the medial cortex. Healed distal radial fracture is stabilized with ventral plate and screws, stable.
== END 2022-01-22 08:11 | disposition home or self-care (01) ==
LOC: HO.HOSX 08:10
PROVIDERS: Visit Provider Physician Assistant
DX: S72.91XD Unspecified fracture of right femur, subsequent encounter for closed fracture with routine healing (principal); S52.501D Unspecified fracture of the lower end of right radius, subsequent encounter for closed fracture with routine healing
CPT/HCPCS: 73110; 73552; 99212

== ENCOUNTER 2022-02-12 11:01 | Outpatient (REF) | payer OTHER, SELFPAY ==
--- NOTE | ~2022-02-12 | MM_ITS ---
EXAMINATION: MM SCREENING DIGITAL BREAST TOMOSYNTHESIS, BILATERAL CLINICAL INFORMATION: Screening. Asymptomatic. The lifetime risk of breast cancer based on the Tyrer-Cuzick Model is 11.3%. COMPARISON: Mammography: August 26, 2019 and studies dating back to May 08, 2012 TECHNIQUE: Digital breast tomosynthesis is performed in both the craniocaudal and mediolateral oblique views along with computer-aided detection (CAD). Synthesized 2D images are generated from the tomosynthesis. FINDINGS: There are scattered areas of fibroglandular density (ACR BI-RADS breast composition Category b). There are no significant masses, abnormal calcifications, or other abnormalities. MM/MM tomosynthesis screening BI IMPRESSION: There are no significant changes from prior study. ASSESSMENT: BI-RADS 1: Negative RECOMMENDATION: Routine annual mammography screening. This patient's information was entered into a reminder system with a target due date for their next mammogram.
== END 2022-02-12 11:02 | disposition home or self-care (01) ==
LOC: HO.MAMMO 11:01
PROVIDERS: Visit Provider Internal Medicine Geriatric Medicine
DX: Z12.31 Encounter for screening mammogram for malignant neoplasm of breast (principal)
CPT/HCPCS: 77063; 77067

== ENCOUNTER 2022-02-21 10:00 | Outpatient (RCR) | payer OTHER, SELFPAY ==
--- NOTE | 2021-12-26 15:27 | MHC.PT.EP ---
[facility] [place] Office [place] Office [place] Office [address] Juan Cortes [address] [phone] F: [phone] F: [phone] F: [phone] F: [phone] Physical Therapy Plan of Care Date of Evaluation: Date of Surgery: 09/06/21 Diagnosis: RIGHT FEMUR FRACTURE-> S/P ORIF 09/06/21, WBAT; QUAD/ GLUTE/CORE STRENGTHENING Assessment: 56 YO FEMALE REF TO PT S/P ORIF Rt FEMUR AND Rt WRIST 12/07/20- SHE IS CURRENTLY AMB W A W/WALKER WBAT Rt LE- SHE HAD STR x 2 WKS THEN HOME PT THRU MID NOVEMBER 2021. OBJECTIVELY, Pt HAS LIMITED AROM RIGHT HIP /LE, DECR SCAR MOB Rt LAT THIGH, LUMBOPELVIC/ PROX LE WEAKNESS, AND DECR POSTURAL AWARENESS. FUNCTIONALLY, Pt HAS TIGHT PSOAS MM LIMITING HIP EXT W HER GAIT MECH, DECR STAIR MGMT (CURRENTLY USING A RAMP), AND INCR LEFT UE/LE COMPEN W TRANSFERS. Pt WOULD BENEFIT FROM PT TO ADDRESS THE ABOVE FINDINGS, DEV A HEP/ SELF-SX MGMT STRATEGIES, AND ENHANCE INDEPENDENCE W FUNCTIONAL MOBILITY. Frequency and Duration: The patient will be seen 2 x WK x 5 WKS Short Term Goals: Pt DEMON PROPER TECHN W Rt SLR IN 1 WK Pt'S RIGHT HIP/ KNEE PAIN DECREASED TO 2-3/10 IN 2 WKS IMPROVE Rt LATERAL THIGH SCAR MOB IN 2 WKS Pt DEMO IMPROVED GAIT MECH W LEAST REST AD ON LEVEL GROUND AND STAIRS IN 2 WKS Pt DEMON INDEP/ PROPER GAIT MECH W LEAST RESTR AD ON LEVEL GROUND AND STAIR MGMT IN 3 WKS Welfare Case Worker Goals: Pt INDEP W HEP PROGRESSION AND SELF-SX MGMT STRATEGIES IN 5 WKS Pt RESUME REG ADLs EVIDENT W IMPROVED LEFI SCORE BY 8-10 POINTS (AT EVAL 20/80) IN 5 WKS Pt INDEP W GAIT AND STAIR MGMT W/O AD IN 5 WKS Pt INCR Rt LE STRENGTH BY 1 GRADE IN 5 WKS Treatment Plan: Modalities to reduce pain, spasms and effusion. Manual therapy to restore motion and function. Therapeutic exercise to improve strength and flexibility. Neuromuscular re-education for posture and balance. Therapeutic activities to return to functional activities of daily living. Electronically signed by: Marely Antonio PT Please sign and return to therapist. Thank you for your referral.
--- NOTE | 2022-02-21 13:16 | MHC.PT.DC ---
[facility] [place] Office [place] Office [place] Office [address] Juan Cortes [address] [phone] F: [phone] F: [phone] F: [phone] F: [phone] Physical Therapy Discharge Report Diagnosis: RIGHT FEMUR FRACTURE-> S/P ORIF 09/06/21, WBAT; QUAD/ GLUTE/CORE STRENGTHENING Date of Surgery: 09/06/21 Date of Evaluation: 12/26/21 Date of Discharge: 02/21/22 Treatments to Date: 14 Cancellations to Date: 0 No Shows to Date: 0 Discharge Status: Achieved Goals Improved Function Independent with HEP Discharge Summary: Pt HAS PROGRESSED WELL IN PT, SHE IS AMB W CANE, MANAGING STAIRS APPROPRIATELY, AND IS INDEP/ COMPLIANT W HEP. Pt HAS INCREASED STRENGTH AND HER LEFI SCORE IMPROVED FROM 20/80 TO 49/80 AT DISCHARGE. Pt IS PLEASED W HER PROGRESS AND IS D/C W HEP AT THHIS TIME. Electronically signed by: Marely Antonio,PT Please sign and return to therapist. Thank you for your referral.
== END 2022-02-21 13:16 | disposition home or self-care (01) ==
LOC: HO.PT 10:00
PROVIDERS: Visit Provider Physician Assistant
DX: S72.90XD Unspecified fracture of unspecified femur, subsequent encounter for closed fracture with routine healing (principal)
CPT/HCPCS: 97110; 97112; 97162

== ENCOUNTER → 2022-03-05 12:51 | Outpatient (BNVA) | payer OTHER, SELFPAY | PROVIDERS: PCP Internal Medicine Geriatric Medicine; Visit Provider Physician Assistant | DX: S62.101D Fracture of unspecified carpal bone, right wrist, subsequent encounter for fracture with routine healing (principal); S72.451D Displaced supracondylar fracture without intracondylar extension of lower end of right femur, subsequent encounter for closed fracture with routine healing | CPT/HCPCS: 99212 ==

== ENCOUNTER 2022-07-06 12:48 | Outpatient (REF) | payer OTHER, SELFPAY | END 2022-07-06 12:49 | disposition home or self-care (01) | LOC: HO.HOSX 12:48 | PROVIDERS: Visit Provider Physician Assistant | DX: S82.141A Displaced bicondylar fracture of right tibia, initial encounter for closed fracture (principal) | CPT/HCPCS: 99212 ==

== ENCOUNTER → 2022-07-19 14:51 | Outpatient (BNVA) | payer OTHER, SELFPAY | PROVIDERS: PCP Internal Medicine Geriatric Medicine; Visit Provider Orthopaedic Surgery | DX: S72.451A Displaced supracondylar fracture without intracondylar extension of lower end of right femur, initial encounter for closed fracture (principal); S62.109A Fracture of unspecified carpal bone, unspecified wrist, initial encounter for closed fracture | CPT/HCPCS: 99212 ==

== ENCOUNTER 2022-07-23 12:28 | Outpatient (REF) | payer OTHER, SELFPAY ==
--- NOTE | ~2022-07-23 | XR_ITS ---
EXAMINATION: 1. STANDING AP RADIOGRAPHS OF THE BILATERAL KNEES 2. RADIOGRAPHS RIGHT KNEE CLINICAL INFORMATION: Knee pain COMPARISON: Right knee CT 07/03/2022 and right knee x-rays 07/02/2022 TECHNIQUE: Standing AP view of both knees were obtained. Additional lateral and sunrise views of the right knee were also obtained. FINDINGS: Visualized hardware of the distal right femur is stable without evidence of failure. There is evidence of an old healed fracture of the distal right femur. There is moderate to severe narrowing of the right lateral joint space height with moderate narrowing of the medial right joint space height. Small tricompartmental osteophytes noted within the right knee, most predominantly involving the lateral compartment. A small right-sided suprapatellar joint effusion is noted. There is no focal soft tissue swelling of the anterior right knee. Frontal standing view of the left knee demonstrates no gross fracture or dislocation. There is only minimal narrowing of the left medial and lateral joint space heights. XR/XR knee RT 2V IMPRESSION: -Moderate degenerative changes of the right knee without fracture or dislocation. -No gross evidence of hardware failure within the visualized distal right femur. -Mild degenerative changes of the left knee.
--- NOTE | ~2022-07-23 | XR_ITS ---
EXAMINATION: 1. STANDING AP RADIOGRAPHS OF THE BILATERAL KNEES 2. RADIOGRAPHS RIGHT KNEE CLINICAL INFORMATION: Knee pain COMPARISON: Right knee CT 07/03/2022 and right knee x-rays 07/02/2022 TECHNIQUE: Standing AP view of both knees were obtained. Additional lateral and sunrise views of the right knee were also obtained. FINDINGS: Visualized hardware of the distal right femur is stable without evidence of failure. There is evidence of an old healed fracture of the distal right femur. There is moderate to severe narrowing of the right lateral joint space height with moderate narrowing of the medial right joint space height. Small tricompartmental osteophytes noted within the right knee, most predominantly involving the lateral compartment. A small right-sided suprapatellar joint effusion is noted. There is no focal soft tissue swelling of the anterior right knee. Frontal standing view of the left knee demonstrates no gross fracture or dislocation. There is only minimal narrowing of the left medial and lateral joint space heights. XR/XR knee standing BI IMPRESSION: -Moderate degenerative changes of the right knee without fracture or dislocation. -No gross evidence of hardware failure within the visualized distal right femur. -Mild degenerative changes of the left knee.
== END 2022-07-23 12:29 | disposition home or self-care (01) ==
LOC: HO.XRAY 12:28
PROVIDERS: PCP Internal Medicine Geriatric Medicine; Visit Provider Physician Assistant
DX: M25.561 Pain in right knee (principal); M25.562 Pain in left knee
CPT/HCPCS: 73560; 73565

== ENCOUNTER 2022-07-26 12:54 | Outpatient (REF) | payer OTHER, SELFPAY ==
--- NOTE | ~2022-07-26 | MM_ITS ---
EXAMINATION: BONE DENSITOMETRY CLINICAL INDICATION: Fracture of unspecified carpal bone, unspecified wrist. COMPARISON: None (current study represents initial baseline exam). TECHNIQUE: Using a [employer] DXA System (software version: 13.1) manufactured by [employer], dual-energy x-ray absorptiometry was performed of the lumbar spine and left hip. The images are of good technical quality. Summary results are attached. FINDINGS: AP SPINE L1-L3 (excluding L4): The data of L1-L4 has been changed to exclude the L4 vertebral body, because degenerative changes at this level may cause overestimation of lumbar spine density. BMD 0.974 g/cm2, Z-score -1.7, T-score -1.6, osteopenia. LEFT FEMUR, NECK: BMD 0.796 g/cm2, Z-score -1.3, T-score -1.7, osteopenia. LEFT FEMUR, TOTAL: BMD 0.835 g/cm2, Z-score -1.3, T-score -1.4, osteopenia. IDENTIFIED RISK FACTORS: Menopause, history of fracture (adult), family history (parental hip fracture). HISTORY OF FRACTURE: Extremities. MEDICATIONS: None listed. MM/XR DEXA axial skeleton IMPRESSION: 1. DIAGNOSIS: Osteopenia based on the lowest T-score value of -1.7 in the femoral neck applying World Health Organization criteria. 2. 10-YEAR FRACTURE RISK PREDICTION, FRAX: Major osteoporotic fracture (clinical spine, forearm, hip or shoulder) 14.3%. Hip fracture 0.8%. 3. Treatment Recommendations: NOF guidelines recommend consideration for treatment in postmenopausal women and men age 50 and older presenting with the following: -A hip or vertebral (clinical or morphometric) fracture. -T-score less than or equal to -2.5 at the femoral neck or spine after appropriate evaluation to exclude secondary causes. -Low bone mass at the hip or spine and a 10-year fracture probability by FRAX of greater than or equal to 3% for hip fracture or greater than or equal to 20% for major osteoporotic fracture based on the [place] adapted WHO algorithm. 4. Other Recommendations: All treatment decisions require clinical judgment and consideration of individual patient factors, including patient preferences, comorbidities, previous drug use, risk factors not captured in the FRAX model (e.g. frailty, falls, vitamin D deficiency, increased bone turnover, interval significant decline in bone density) and possible under or overestimation of fracture risk by FRAX. Additional medical evaluation for secondary cause of low bone mineral density may be appropriate. FUTURE SCAN RECOMMENDATION: People with diagnosed cases of osteoporosis or at high risk for fracture should have regular bone mineral density tests. For patients eligible for Medicare, routine testing is allowed once every 2 years. The testing frequency can be increased to one year for patients who have rapidly progressing disease, those who are receiving or discontinuing medical therapy to restore bone mass, or have additional risk factors.
== END 2022-07-26 12:55 | disposition home or self-care (01) ==
LOC: HO.MAMMO 12:54
PROVIDERS: PCP Internal Medicine Geriatric Medicine; Visit Provider Orthopaedic Surgery
DX: Z13.820 Encounter for screening for osteoporosis (principal); S62.109A Fracture of unspecified carpal bone, unspecified wrist, initial encounter for closed fracture; S82.141A Displaced bicondylar fracture of right tibia, initial encounter for closed fracture; S72.90XA Unspecified fracture of unspecified femur, initial encounter for closed fracture; X58.XXXA Exposure to other specified factors, initial encounter; Y93.9 Activity, unspecified; Y92.9 Unspecified place or not applicable; Y99.9 Unspecified external cause status; Z78.0 Asymptomatic menopausal state
CPT/HCPCS: 77080

== ENCOUNTER → 2022-08-13 11:17 | Outpatient (BNVA) | payer OTHER, SELFPAY | PROVIDERS: PCP Internal Medicine Geriatric Medicine; Visit Provider Orthopaedic Surgery | DX: S72.91XD Unspecified fracture of right femur, subsequent encounter for closed fracture with routine healing (principal); M79.604 Pain in right leg; M85.80 Other specified disorders of bone density and structure, unspecified site | CPT/HCPCS: 99212 ==

== ENCOUNTER 2022-11-23 15:02 | Outpatient (REF) | payer OTHER, SELFPAY ==
[2022-11-23 17:56] LABS: Phosphorus 3.1 mg/dL (2.7-4.5)
[2022-11-23 18:13] LABS: Vitamin D 25-OH Total 17.5 ng/mL (>30)
== END 2022-11-23 15:03 | disposition home or self-care (01) ==
LOC: HO.LAB 15:02
PROVIDERS: PCP Internal Medicine Geriatric Medicine; Visit Provider Internal Medicine Endocrinology, Diabetes & Metabolism
DX: M85.80 Other specified disorders of bone density and structure, unspecified site (principal); Z79.899 Other long term (current) drug therapy
CPT/HCPCS: 36415; 82306; 84100; 99202

== ENCOUNTER 2022-11-28 15:55 | Outpatient (REF) | payer OTHER, SELFPAY ==
[2022-11-28 17:01] LABS: Creatinine, mg/dL 86.88
[2022-11-28 19:58] LABS: Creatinine, 24Hr Urine 0.9 G/Day (1.0-2.0); Total Volume 24 Hour Urine 1000 mL
[2022-11-29 16:38] LABS: Calcium, 24 Hr Urine 139 mg/24 h; Calcium/Creatinine Ratio 193 mg/g creat (30-275); Creatinine 24Hr Urine 0.72 g/24 h (0.50-2.15)
== END 2022-11-28 15:56 | disposition home or self-care (01) ==
LOC: HO.LNP 15:55
PROVIDERS: Visit Provider Internal Medicine Endocrinology, Diabetes & Metabolism
DX: M85.80 Other specified disorders of bone density and structure, unspecified site (principal)
CPT/HCPCS: 82340; 82570

== ENCOUNTER 2023-07-02 11:22 | Outpatient (REF) | payer OTHER, SELFPAY ==
[2023-07-02 13:40] LABS: MANUAL DIFF FLAG NO
[2023-07-02 13:58] LABS: Basophils Percent Auto 0.5 % (0-2); Eosinophils Absolute Auto 0.1 X10*3/uL (0.0-0.4); Hematocrit 45.2 % (37.0-47.0); Imm Gran Abs Auto 0.03 X10*3/uL (0.00-0.03); Imm Gran Pct Auto 0.4 % (0.0-0.4); Lymphocytes Absolute Auto 2.4 X10*3/uL (1.2-4.9); Lymphocytes Percent Auto 31.3 % (20-40); Mean Corpuscular Hemoglobin 25.3 pg (27.0-33.0); Mean Corpuscular Volume 81.7 fL (80.0-98.0); Mean Platelet Volume 9.5 fL (9.4-12.3); Monocytes Absolute Auto 0.6 X10*3/uL (0.1-1.2); Monocytes Percent Auto 7.9 % (2-11); Neutrophils Absolute Auto 4.5 x10*3/uL (2.0-8.3); Neutrophils Percent Auto 58.9 % (45-73); Platelet Count 316 X10*3/uL (160-400); Red Blood Count 5.53 X10*6/uL (4.20-5.50); Red Cell Distribution Width 14.8 % (11.0-16.0); White Blood Count 7.7 X10*3/uL (4.8-10.8)
[2023-07-02 14:22] LABS: Alanine Aminotransferase 18 U/L (0-31); Albumin Level 3.9 g/dL (3.5-5.0); Alkaline Phosphatase 92 U/L (39-117); Anion Gap 12 (12-20); Aspartate Amino Transferase 15 U/L (5-31); Bilirubin Total 0.8 mg/dL (0.0-1.0); Blood Urea Nitrogen 18 mg/dL (9-16); Calcium 9.8 mg/dL (8.4-10.2); Carbon Dioxide 26 mmol/L (22-29); Chloride 108 mmol/L (96-108); Cholesterol 195 mg/dL; Estimated Glomerular Filt Rate > 60; Glucose Random 102 mg/dL (60-115); HDL Cholesterol 63 mg/dL; LDL Cholesterol Calculated 116 mg/dl; Potassium 4.8 mmol/L (3.3-5.1); Sodium 141 mmol/L (135-145); Total Protein 7.5 g/dL (6.5-8.0); Triglycerides 82 mg/dL
== END 2023-07-02 11:23 | disposition home or self-care (01) ==
LOC: HO.HHCL 11:22
PROVIDERS: Visit Provider Internal Medicine Geriatric Medicine
DX: I10 Essential (primary) hypertension (principal); R73.01 Impaired fasting glucose
CPT/HCPCS: 36415; 80053; 80061; 85025

== ENCOUNTER 2024-02-12 10:41 | Outpatient (REF) | payer OTHER, SELFPAY ==
[2024-02-12 11:50] LABS: Estimated Average Glucose 108 mg/dL; Hemoglobin A1c % 5.4 % (<6.0)
[2024-02-12 12:27] LABS: Alanine Aminotransferase 14 U/L (0-31); Albumin Level 3.9 g/dL (3.5-5.0); Alkaline Phosphatase 97 U/L (39-117); Anion Gap 10 (12-20); Aspartate Amino Transferase 13 U/L (5-31); Bilirubin Total 0.9 mg/dL (0.0-1.0); Blood Urea Nitrogen 19 mg/dL (9-16); Calcium 9.9 mg/dL (8.4-10.2); Carbon Dioxide 30 mmol/L (22-29); Chloride 108 mmol/L (96-108); Cholesterol 184 mg/dL (<200); Estimated Glomerular Filt Rate > 60; Glucose Random 97 mg/dL (60-115); HDL Cholesterol 61 mg/dL (>40); LDL Cholesterol Calculated 109 mg/dL (<100); Potassium 4.2 mmol/L (3.3-5.1); Sodium 144 mmol/L (135-145); Total Protein 7.8 g/dL (6.5-8.0); Triglycerides 72 mg/dL (<150)
[2024-02-12 12:53] LABS: ~HepC Num1 0.22 S/CO (0.00-0.79); ~Hepatitis C Antibody Nonreactive (Nonreactive)
== END 2024-02-12 10:42 | disposition home or self-care (01) ==
LOC: HO.HHCL 10:41
PROVIDERS: Visit Provider Internal Medicine Geriatric Medicine
DX: I10 Essential (primary) hypertension (principal); Z11.59 Encounter for screening for other viral diseases
CPT/HCPCS: 36415; 80053; 80061; 83036; 86803

== ENCOUNTER 2024-02-26 18:31 | Outpatient (REF) | payer OTHER, SELFPAY ==
[2024-03-03 04:18] LABS: HPV mRNA E6/E7 rflx Not Detected (Not Detected)
== END 2024-02-26 18:32 | disposition home or self-care (01) ==
LOC: HO.LNP 18:31
PROVIDERS: Visit Provider Advanced Practice Midwife
DX: Z01.419 Encounter for gynecological examination (general) (routine) without abnormal findings (principal)
CPT/HCPCS: 87624; 88142

== ENCOUNTER 2024-03-18 11:13 | Outpatient (REF) | payer OTHER, SELFPAY | END 2024-03-18 11:14 | disposition home or self-care (01) | LOC: HO.MAMMO 11:13 | PROVIDERS: PCP Internal Medicine Geriatric Medicine; Visit Provider Advanced Practice Midwife | DX: Z12.31 Encounter for screening mammogram for malignant neoplasm of breast (principal) | CPT/HCPCS: 77063; 77067 ==

== ENCOUNTER → 2024-03-18 11:15 | Outpatient (BNV) | payer OTHER, SELFPAY | PROVIDERS: PCP Internal Medicine Geriatric Medicine; Visit Provider Radiology Diagnostic Radiology | DX: Z12.31 Encounter for screening mammogram for malignant neoplasm of breast (principal) | CPT/HCPCS: 77063; 77067 ==

== ENCOUNTER 2024-03-19 09:35 | Outpatient (AMB) | payer OTHER, SELFPAY ==
--- NOTE | 2024-03-19 09:44 | A.OFFVIS_ITS ---
Vital Signs 03/19/24 09:46 Height 5 ft 3 in Weight 229 lb 4.492 oz BMI 40.6 BP 130/59 L Blood Pressure Location Lt brachial Position Sitting Pulse 71 Intake Visit Reasons: Colonoscopy screening Intake Note: Amanda presents in the office as a new patient for a colonoscopy screening. CC: No concerns and never had a colonoscopy. Educational Adviser Required: No Allergies ibuprofen Allergy (Unknown, Verified 03/19/24 09:46) kidney problems Medication List - Last Reconciled 03/19/24 by Candice Saldana PA-C acetaminophen ER 650 mg PO TID [Adult Diaper As directed] amlodipine 10 mg PO DAILY docusate sodium 100 mg PO BID 14 days lisinopril-hydrochlorothiazide 20-12.5 mg 1 tab PO DAILY pantoprazole 1 tab PO DAILY HPI Comments Details: Very pleasant 58-year-old female referred for screening colonoscopy- 2013 inadequate prep due to PEG- Pantoprazole 40 mg- for the past 2 years- intermittent break through- never had EGD She has no GI concerns Normal bowel Appetite is good No respiratory or cardiac issues No nausea, vomiting, hematemesis, hematochezia fever chills [facility] Medical History (Updated 03/19/24 @ 10:26 by Candice Saldana PA-C) GERD (gastroesophageal reflux disease) HTN (hypertension) Surgical History History of surgery on right wrist History of surgery H/O left wrist surgery Status post total hip replacement, right Family History Mother Cancer Father Diabetes mellitus, type II Brother Diabetes Social History Household Members: Family Household Members Other:: youngest brother, oldest granson, daughter (duplex) Housing: House Do you presently have visiting nurse or other home services: No Alcohol intake: current Alcohol intake frequency: does not drink Patient Tobacco Use Status: Never used Tobacco service: No Current occupational status: disabled Current occupation: rt handed Review of Systems Const All systems reviewed & are unremarkable except as noted in HPI and below Card Denies chest pain and Denies dyspnea Resp Denies dyspnea GI Denies change in bowel habits, Reports heartburn, Denies nausea and Denies vomiting Musc Reports arthralgias, Reports limited range of motion and Reports stiffness Physical Exam Vital Signs: Last Vital Signs Pulse 71 03/19/24 09:46 BP 130/59 L 03/19/24 09:46 BMI result Body Mass Index 40.6 Const General: cooperative, healthy appearing, comfortable and no acute distress Orientation/consciousness: patient oriented x3 Limitations: no limitations Eyes Sclerae: sclerae normal Resp Effort & Inspection: normal respiratory effort and able to speak in complete sentences Auscultation: clear to auscultation bilaterally, no rales, no rhonchi and no wheezes Cardio Rate: regular rate Rhythm: regular rhythm Heart sounds: S1 normal heart sound present and S2 normal heart sound present GI Palpation (GI): Soft to palpation and nontender Auscultation: normal bowel sounds Skin General skin exam: no rashes or lesions noted Neuro General: patient oriented x3 Psych Appearance: grossly normal and well kempt Mental Status: mental status grossly normal Speech and movement: Normal speech and movement present Affect: normal affect Attitude: cooperative Thought process: Normal thought process present Thought content: Normal thought content present Insight: Good insight present (Psych) Judgement: Good judgement present (Psych) Results Reviewed Results Reviewed: Colonoscopy 2013 inadequate prep Assessment & Plan Assessment & Plan (1) Encounter for screening colonoscopy: Comment: 2013-inadequate prep Code(s): Z12.11 - Encounter for screening for malignant neoplasm of colon Category: Medical Plan: Colonoscopy (2) GERD (gastroesophageal reflux disease): Comment: Reflux precautions Continue PPI Code(s): K21.9 - Gastro-esophageal reflux disease without esophagitis Category: Medical Plan: EGD, Jaramillo's surveillance, r/o pud, nonulcer dyspepsia esophagitis or other endoscopic findings to account for her symptoms Plan BMI: 40.6kg/m? Visit Date: 03/19/24 EGD/ Index screening colonoscopy MiraLax Gatorade prep Orders: Orders EGD/Morgan Combo - GI Use Only Today Medications: New bisacodyl (Dulcolax (bisacodyl)) Day before procedure @ 12 noon Take 4 tablets by mouth followed by large glass of water 20 mg (4 x 5 mg) PO ONCE 1 day PRN 4 tabs 0RF colonoscopy prep Z12.11 - Encounter for screening for malignant neoplasm of colon polyethylene glycol 3350 (Miralax) Take as directed by mouth the day before your procedure. 238 grams PO ONCE 1 day PRN 238 grams 0RF laxative effect Patient Instructions: EGD, index screening colonoscopy MiraLax Gatorade prep, reviewed literature given Reinforced clear liquids, entire day before Discussed procedures, rare risks need for escorted due to anesthesia She will continue PPI Reflux precautions avoid culprits Encouraged to call questions or concerns Appreciate the opportunity assist in care pleasant patient Coding Level of Care Code New Pt Level 3 (46145) Diagnoses Encounter for screening colonoscopy Z12.11 GERD (gastroesophageal reflux disease) K21.9 Time Spent (min) 30
[2024-03-19 09:46] VITALS: BP 130/59; PULSE 71; BMI 40.6
== END 2024-03-19 10:14 | disposition home or self-care (01) ==
PROVIDERS: PCP Internal Medicine Geriatric Medicine; Visit Provider Physician Assistant
DX: K21.9 Gastro-esophageal reflux disease without esophagitis (principal); Z12.11 Encounter for screening for malignant neoplasm of colon
CPT/HCPCS: 99203

== ENCOUNTER → 2024-03-19 09:35 | Outpatient (BNVA) | payer OTHER, SELFPAY | PROVIDERS: PCP Internal Medicine Geriatric Medicine; Visit Provider Physician Assistant | DX: Z01.818 Encounter for other preprocedural examination (principal); K21.9 Gastro-esophageal reflux disease without esophagitis | CPT/HCPCS: 99202 ==

== ENCOUNTER 2024-07-07 05:46 | Day surgery (SDC) | payer OTHER, SELFPAY ==
--- NOTE | 2024-07-06 11:52 | HO.ANESPROP2 ---
Documented by User: Rahel Mills NP 07/06/24 11:53 HPI - Anesthesia Eval Consult details Narrative: 59yo F for Upper Endoscopy and Colonoscopy PMF Active Problems Active Problems: All Active Problems GERD (gastroesophageal reflux disease) (Acute) Encounter for screening colonoscopy (Acute) Osteopenia determined by x-ray (Acute) Right leg pain (Acute) Tibial plateau fracture, right (Acute) Fracture of wrist (Acute) Closed femur fracture (Acute) Past Medical History Medical History (Updated 07/07/24 @ 06:35 by Dianne Dos Santos RN) Kidney stones GERD (gastroesophageal reflux disease) HTN (hypertension) Family History Family History Mother Cancer Father Diabetes mellitus, type II Brother Diabetes Family history of problems with anesthesia: No Surgical History Surgical History History of surgery on right wrist History of surgery H/O left wrist surgery Status post total hip replacement, right History of Problems with Anesthesia: No Social History Social History Household Members: Family Household Members Other:: youngest brother, oldest granson, daughter (duplex) Housing: House Do you presently have visiting nurse or other home services: No Alcohol intake: current Alcohol intake frequency: does not drink Patient Tobacco Use Status: Never used Tobacco Use of substances other than those prescribed or required for medical reasons: No Are you DNR?: No Advance Directives: No Advance Directives Information Provided: Yes service: No Current occupational status: disabled Current occupation: rt handed Meds Allergies Allergy/AdvReac Type Severity Reaction Status Date / Time ibuprofen Allergy Unknown kidney Verified 03/19/24 09:46 problems Home Medications ?Medication ?Instructions ?Recorded ?Confirmed ?Last Taken ?Type lisinopril 20 1 tab PO DAILY 09/05/21 11/23/22 09/05/21 History mg-hydrochlorothiazide 12.5 mg tablet pantoprazole 40 mg tablet,delayed 1 tab PO DAILY 09/05/21 11/23/22 07/07/24 History release acetaminophen 650 mg 650 mg PO TID 03/19/24 Unknown History tablet,extended release amlodipine 10 mg tablet 10 mg PO DAILY 03/19/24 07/07/24 History Assessment and Plan Assessment Anesthesia Assessment: Chart Reviewed Final Anesthetic Review Family History of Problems with Anesthesia: No History of Problems with Anesthesia: No Documented by User: Aram Ruelas MD 07/07/24 07:34 [facility] Past Medical History Medical History (Updated 07/07/24 @ 06:35 by Dianne Dos Santos RN) Kidney stones GERD (gastroesophageal reflux disease) HTN (hypertension) Family History Family History Mother Cancer Father Diabetes mellitus, type II Brother Diabetes Surgical History Surgical History History of surgery on right wrist History of surgery H/O left wrist surgery Status post total hip replacement, right Social History Social History Household Members: Family Household Members Other:: youngest brother, oldest granson, daughter (duplex) Housing: House Do you presently have visiting nurse or other home services: No Alcohol intake: current Alcohol intake frequency: does not drink Patient Tobacco Use Status: Never used Tobacco Use of substances other than those prescribed or required for medical reasons: No Are you DNR?: No Advance Directives: No Advance Directives Information Provided: Yes service: No Current occupational status: disabled Current occupation: rt handed Meds Allergies Allergy/AdvReac Type Severity Reaction Status Date / Time ibuprofen Allergy Unknown kidney Verified 03/19/24 09:46 problems Home Medications ?Medication ?Instructions ?Recorded ?Confirmed ?Last Taken ?Type lisinopril 20 1 tab PO DAILY 09/05/21 11/23/22 09/05/21 History mg-hydrochlorothiazide 12.5 mg tablet pantoprazole 40 mg tablet,delayed 1 tab PO DAILY 09/05/21 11/23/22 07/07/24 History release acetaminophen 650 mg 650 mg PO TID 03/19/24 Unknown History tablet,extended release amlodipine 10 mg tablet 10 mg PO DAILY 03/19/24 07/07/24 History Exam Airway Mallampati Class: II TM Dist: <=3cm Neck ROM: Full Loose/Missing/Broken Teeth: No Heart: ok Lungs: ok Assessment and Plan Assessment Anesthesia Assessment: Anesthesia Plan Discussed Final Anesthetic Review NPO: Yes ASA Class: II and III Final Preanesthetic Review: No Changes in Pt Med Stat, Meds/Allgs Chart Reviewed, Consent Obtained/Reviewed and Anes Risks/Benef Reviewed Patient Risk: Intermediate Procedure Risk: Intermediate Anesthetic Plan Anesthetic Plan: Agree w/ Assess. and Plan and TIVA Disposition: Standard PACU
--- NOTE | 2024-07-06 21:56 | MHC.SHP ---
Pre-Procedural Eval Section A - 24 Hr Update-Section A only Date of Service: 07/07/24 Section B - Complete if H&P > 30 days Chief Complaint: GERD, screening Details of Present Illness: GERD (gastroesophageal reflux disease) HTN (hypertension) Surgical History History of surgery on right wrist History of surgery H/O left wrist surgery Status post total hip replacement, right Present Medications: see Short Stay Collaborative assessment Allergies: Allergies Allergy/AdvReac Type Severity Reaction Status Date / Time ibuprofen Allergy Unknown kidney Verified 03/19/24 09:46 problems Review of Systems Review of Systems Comment: Ten point ROS negative Exam Exam Comment: Gen appear: No acute distress HEENT: no icterus Chest: No overt resp distress Abd: soft, nontender, nondistended Psych: Stable affect, answering questions appropriately Neuro: A/Ox3 noted to move all extremities spontaneously Ext: no peripheral edema Plan Diagnosis/Plan: Unchanged I have reviewed the history and physical and performed a pertinent physical examination on my patient. No changes have occurred unless specified. Time Spent With Patient Time: Total time managing care of this patient today ____ minutes.
[2024-07-07 06:40] VITALS: BMI 39.9
[2024-07-07 06:42] VITALS: BP 150/93; PULSE 83; RESP 16; TEMP 36.2; O2SAT 94
[2024-07-07] MEDS: Lactated Ringers 1,000 ML 100 ML IVCONT (07:01)
--- NOTE | 2024-07-07 08:42 | P.OPN-COLO_ITS ---
Colonoscopy Operative Note Operative Note Date of Service: 07/07/24 Narrative: Procedure: Upper endoscopy and colonoscopy Indication: GERD, screening Endoscopist: Dora Rodriguez MD Anesthesia Provider: Aram Ruelas MD Anesthesia type: MAC Instrument: [id number] and [id number] EGD Procedure:?? The procedure, indications, preparation and potential complications were reviewed with the patient, who indicated understanding and gave written informed consent to proceed. The endoscope was introduced through the mouth, and advanced to the 2nd part of the duodenum. The mucosa was carefully examined on slow withdrawal of the endoscope. The patient tolerated the procedure well. There were no immediate complications.? EGD Findings:? * Esophagus:? Normal esophageal mucosa was noted. The Z-line was at 33 cm. There was a large size hiatal hernia with the diaphragmatic pinch at 38 cm. Cold forceps biopsies were taken from lower esophagus to evaluate for histological signs of GERD. * Stomach:? Too numerous to count polyps were noted in the cardia, fundus and body the stomach measuring 5 mm to 15 mm. Cold snare polypectomy was performed for a few of the larger sessile and semi-pedunculated polyps. 5-6 polyps were completely removed and retrieved. Erythema and erosions were noted in the antrum. Retroflexion was performed in the cardia that showed grade Hill 3 hiatal hernia. * Duodenum:? 1 villous appearing polyp was noted in the duodenal sweep. Cold forceps biopsies were taken from the polyp. Remaining duodenal mucosa was normal to the extent of visualisation. Colonoscopy Procedure:? The patient was then turned for the colonoscopy. A digital rectal exam was performed which was abnormal for external hemorrhoids.? A distal attachment cap was affixed to the tip of the scope and the colonoscope was then inserted through the anus and advanced through the colon and advanced to the cecum at 85 cm.? Appendiceal orifice and ileocecal valve were identified. Mucosa was carefully examined under high definition white light as the instrument was slowly withdrawn in a retrograde panoramic fashion. Retroflexion was performed in rectum. The procedure was not difficult. The quality of the prep was BBPS: 2+2+2 = adequate Withdrawal time 8 minutes Limitations: No limitations Findings: Mucosa: Normal colon and terminal ileum mucosa. Protruding lesions: * 1 semi pedunculated polyp of size 10 mm noted in the transverse colon. Hot snare polypectomy was performed. The polyp was removed and retrieved. * Large internal hemorrhoids without stigmata of recent bleeding. Impression: 1. Hiatal hernia 2. Gastritis 3. Gastric polyps (snare polypectomy) 4. Duodenal polyp (biopsy) 5. One polyp removed from the colon 6. External and internal hemorrhoids Recommendations:?? * Follow-up path results * Avoid NSAIDs * If gastric polyps are hyperplastic, will need repeat EGD to completely remove large polyps to avoid progression to malignancy. Will also need treatment of H Pylori if positive. * If colon polyp is an adenoma, recommend repeat colo in 3 years due to size of the polyp and prep.
[2024-07-07 08:46] VITALS: BP 96/56; PULSE 74; RESP 18; TEMP 36.4; O2SAT 94
[2024-07-07 09:01] VITALS: BP 111/67; PULSE 64; RESP 16; TEMP 36.4; O2SAT 98
== END 2024-07-07 10:21 | disposition home or self-care (01) ==
PROVIDERS: Visit Provider Internal Medicine
PROC: (CPT 45385; principal; 2024-07-07 08:20)
DX: Z12.11 Encounter for screening for malignant neoplasm of colon (principal); D12.3 Benign neoplasm of transverse colon; K64.8 Other hemorrhoids; K21.9 Gastro-esophageal reflux disease without esophagitis; K31.7 Polyp of stomach and duodenum; K29.70 Gastritis, unspecified, without bleeding; K44.9 Diaphragmatic hernia without obstruction or gangrene; I10 Essential (primary) hypertension; Z79.899 Other long term (current) drug therapy; Z88.6 Allergy status to analgesic agent; Z98.890 Other specified postprocedural states
CPT/HCPCS: 45385; 43251; 43239; 88305; 88342; J2704; J3010

== ENCOUNTER → 2024-07-07 05:46 | Outpatient (BNV) | payer OTHER, SELFPAY | PROVIDERS: Visit Provider Internal Medicine | DX: Z12.11 Encounter for screening for malignant neoplasm of colon (principal); D12.3 Benign neoplasm of transverse colon; K64.8 Other hemorrhoids; K21.9 Gastro-esophageal reflux disease without esophagitis; K31.7 Polyp of stomach and duodenum; K29.70 Gastritis, unspecified, without bleeding | CPT/HCPCS: 43239; 43251; 45385 ==

== ENCOUNTER 2024-12-29 06:29 | Day surgery (SDC) | payer OTHER, SELFPAY ==
[2024-12-25 08:43] VITALS: BMI 40.6
--- NOTE | 2024-12-28 09:10 | HO.ANESPROP2 ---
HPI - Anesthesia Eval Consult details Narrative: 59yo F for Upper Endoscopy PMF Active Problems Active Problems: All Active Problems Encounter for screening colonoscopy (Acute) Osteopenia determined by x-ray (Acute) Right leg pain (Acute) Tibial plateau fracture, right (Acute) Closed femur fracture (Acute) Fracture of wrist (Acute) GERD (gastroesophageal reflux disease) (Acute) Past Medical History Medical History (Updated 07/07/24 @ 06:35 by Dianne Dos Santos RN) Kidney stones GERD (gastroesophageal reflux disease) HTN (hypertension) Family History Family History Mother Cancer Father Diabetes mellitus, type II Brother Diabetes Family history of problems with anesthesia: No Surgical History Surgical History (Updated 12/25/24 @ 08:38 by Ailyn Hedrick RN) History of esophagogastroduodenoscopy (EGD) Hx of colonoscopy History of surgery on right wrist History of surgery H/O left wrist surgery Status post total hip replacement, right History of Problems with Anesthesia: No Social History Social History Household Members: Family Household Members Other:: youngest brother, oldest granson, daughter (duplex) Housing: House Do you presently have visiting nurse or other home services: No Alcohol intake: current Alcohol intake frequency: does not drink Patient Tobacco Use Status: Never used Tobacco service: No Current occupational status: disabled Current occupation: rt handed Meds Allergies Allergy/AdvReac Type Severity Reaction Status Date / Time ibuprofen Allergy Unknown kidney Verified 03/19/24 09:46 problems Home Medications ?Medication ?Instructions ?Recorded ?Confirmed ?Last Taken ?Type lisinopril 20 1 tab PO DAILY 09/05/21 12/25/24 09/05/21 History mg-hydrochlorothiazide 12.5 mg tablet pantoprazole 40 mg tablet,delayed 1 tab PO DAILY 09/05/21 12/25/24 07/07/24 History release acetaminophen 650 mg 650 mg PO TID 03/19/24 12/25/24 Unknown History tablet,extended release amlodipine 10 mg tablet 10 mg PO DAILY 03/19/24 12/25/24 07/07/24 History Exam Height,Weight and Vital Signs: Height 5 ft 3 in Weight 103.873 kg Assessment and Plan Assessment Anesthesia Assessment: Chart Reviewed Final Anesthetic Review Family History of Problems with Anesthesia: No History of Problems with Anesthesia: No
--- OUTSIDE RECORDS SUMMARY | 2024-12-29 06:31 | XMS_ITS | Encounter Summary ---
Author Organization [facility] Address [address] [place] [address] Care Team Providers Care [employer] Supervisor Name Role Phone Name, Leonardo LAYNE Primary Care Provider [phone] Encounter Details Date Type Department Care Team (Latest Contact Info) Description 12/25/2024 Travel Social History Tobacco Use Types Packs/Day Years Used Date Smoking Tobacco: Never Smokeless Tobacco: Never Alcohol Use Standard Drinks/Week Comments Never 0 (1 standard drink = 0.6 oz pur e alcohol) Depression Answer Date Recorded Patient Health Questionnaire-9 Score 0 02/12/2024 Patient Health Questionnaire-9 Score 0 02/12/2024 Last PHQ-9: Questionnaire Data Not on file 0 02/12/2024 Housing Stability Answer Date Recorded What is your housing situation today? I have angelo waldrop 09/16/[address] you li ve. Do you have problems with any of the following? None of the above 09/16/2023 Food Insecurity Answer Date Recorded Within the past 12 months, y ou worried that your food would run out before you got money to buy more: Never True 09/16/2023 Within the past 12 months,th e food you bought just didn't last and you didn't have enough money to get more: Never True Transportation Answer Date Recorded In the past 12 months, has l ack of transportation kept you from medical appts, meetings, work or from getting things needed for daily living? No 09/16/2023 Utilities Answer Date Recorded In the past 12 months, has t he electric, gas, oil or water company threatened to shut off services in your home? No 02/12/2024 Depression Answer Date Recorded Patient Health Questionnaire-2 Score 0 02/12/2024 Comments No Sex and Gender Information Value Date Recorded Sex Assigned at Female 09/24/2022 10:15 AM EDT Legal Sex Female 10:15 AM EDT Gender Identity Female 09/24/2022 10:15 AM EDT Sexual Orientation Choose not to disclose 2021 10:15 AM EDT documented as of this encounter Plan of Treatment Upcoming Encounters Date Type Department Care Team (Late st Contact Info) Description 01/12/2025 11:30 AM EST Office Visit [address] [address] Name, MD Leonardo [address] [place] [phone] 02/25/2025 10:00 AM EDT Office Visit [address] [address] Nany Stewart [address] [address] documented as of this encounter Visit Diagnoses Not on filedocumented in this encounter Additional Health Concerns Assessment Noted Time PHQ-9 Depression Total Score: 0 02/12/20 24 9:39 AM EDT documented as of this encounter Care Teams [employer] Supervisor Relationship Specialty Start Date End Date NameLeonardo MD [address] [place] [phone] PCP - General Family Medicine 08/04/19 documented as of this encounter
--- OUTSIDE RECORDS SUMMARY | 2024-12-29 06:31 | XMS_ITS | Clinical Summary ---
Author Organization [employer] Address [address] [facility] 7t [place] [address] Care Team Providers Care Auditing Manager Name Role Phone Name, Leonardo LAYNE Primary Care Provider [phone] Allergies No known active allergies Medications cholecalciferol (Vitamin D-3) 25 MCG (1000 UT) tablet Take 1,000 Units by mouth in the morning. Active Diclofenac Sodium 1 % gelIndications:H ypertension, unspecified type,Impaired fasting glucose,Gastroes ophageal reflux disease, unspecified whether esophagitis present,Screenin g for cholesterol level,Chronic pain of right knee APPLY 4 GRAMS TO affected KNEE EVERY DAY 100 g 1 3 Active lisinopril-hydro CHLOROthiazide 20-12.5 MG tabletIndication s:Hypertension, unspecified type TAKE 1 TABLET BY MOUTH DAILY IN THE MORNING 90 tablet 3 4 Active amLODIPine (Norvasc) 10 MG tabletIndication s:Hypertension, unspecified type TAKE 1 TABLET BY MOUTH DAILY IN THE MORNING 90 tablet 3 4 Active pantoprazole (ProtoNix) 40 MG EC tabletIndication s:Hypertension, unspecified type,Impaired fasting glucose,Gastroes ophageal reflux disease, unspecified whether esophagitis present,Screenin g for cholesterol level,Chronic pain of right knee TAKE 1 TABLET BY MOUTH EVERY DAY 90 tablet 4 Active Active Problems Problem Noted Date Diagnosed Date Obesity 02/03/2016 Gastroesophageal reflux disease 06/18/2013 Impaired fasting glucose 03/23/2013 Hypertension 03/23/2013 Encounters Date Type Department Care Team Description 12/25/2024 Travel 11/19/2024 Telephone [facility] [address] [facility] [place] [address] Gagandeep Barnes MA fe recalls 10/20/2024 Refill [facility] [address] [place] [address] Oksana, MD Leonardo Hypertension, unspecified type; Impaired fasting glucose; Gastroesophageal reflux disease, unspecified whether esophagitis present; Screening for cholesterol level; Chronic pain of right knee from Last 3 Months Immunizations Name Administration Dates Next Due Hep B, adult 03/04/2012 Influenza Injectable Quadriv alant Preservative Free IIV4 MDCK 10/06/2020 Influenza injectable quadriv alent IIV4 with preservative 08/10/2019,10/03/2017 Influenza injectable quadrivalent preservative f ree 10/30/2021 Influenza, IIV3, injectable 11/11/2014 Moderna Covid-19 Vaccine 6+ Bivalent 01/28/2023 Pfizer Covid-19 Vaccine 12+ 11/28/2023 RSV Bivalent 01/29/2024 Tdap 07/10/2021,03/04/2012 Zoster, Recombinant 01/29/2024,11/28/2023 Family History Medical History Relation Name Comments Diabetes Father Breast cancer Mother at 82 Relation Name Status Comments Father Mother Social History Tobacco Use Types Packs/Day Years Used Date Smoking Tobacco: Never Smokeless Tobacco: Never Tobacco Cessation:Counseling Given: Not Answered Alcohol Use Standard Drinks/Week Comments Never 0 (1 standard drink = 0.6 oz pur e alcohol) Depression Answer Date Recorded Patient Health Questionnaire-9 Score 0 02/12/2024 Patient Health Questionnaire-9 Score 0 02/12/2024 Last PHQ-9: Questionnaire Data Not on file 0 02/12/2024 Housing Stability Answer Date Recorded What is your housing situation today? I have angelosterling waldrop 09/16/[address] you [...] not to disclose 2021 10:15 AM EDT Last Filed Vital Signs Vital Sign Reading Time Taken Comments Blood Pressure 130/78 06/05/2024 11:36 AM EDT Pulse 81 06/05/2024 10:54 AM EDT Temperature 36.1 ??C (96.9 ??F) 06/05/2024 10:54 AM E DT Respiratory Rate 20 06/05/2024 10:54 AM EDT Oxygen Saturation 97% 06/05/2024 10:54 AM EDT Inhaled Oxygen Concentration - - Weight 104 kg (228 lb 6.4 oz) 06/05/2024 10:54 A M EDT Height 160 cm (5' 3 ) 06/05/2024 10:54 AM EDT Body Mass Index 40.46 06/05/2024 10:54 AM EDT Plan of Treatment Upcoming Encounters Date Type Department Care Team (Late st Contact Info) Description 01/12/2025 11:30 AM EST Office Visit [facility] [address] [place] [phone] Name, MD Leonardo [address] [place] [address] 02/25/2025 10:00 AM EDT Office Visit [facility] [address] [place] [phone] Ryley Oseguera, JOHN [address] [place] [address] Health Maintenance Due Date Last Done Comments CT Colonography 1965 Colonoscopy 1965 Colorectal Cancer Screening 1965 FIT DNA/Cologuard 1965 FIT 1965 FOBT 1965 HIV Screening 1965 Sigmoidoscopy 1965 Hepatitis B Vaccines (2 of 3 - 19+ 3-dose series) 04/01/2012 03/04/2012 Pneumococcal Vaccine: 50+ Years (1 of 1 - PCV) 2013 COVID-19 Vaccine (2023- season) 2024 11/28/2023, 01/28/2023, 07/18/2022, Additional history exists Influenza Vaccine (#1) 2024 , 10/06/2020, 08/10/2019, Additional history exists Depression Screening 02/11/2025 02/12/2024, 02/12/20 SDOH Screening 02/11/2025 02/12/2024 Alcohol/Substance Use Screening 06/05/2025 06/05/2024 Tobacco Screening 06/05/2025 06/05/2024 Mammogram 03/18/2026 03/18/2024, 0311/2021, 08/27/2019 Pap Smear 02/25/2027 02/26/2024 Lipid Panel 02/11/2029 02/12/2024, 08/0 06/2023, 01/18/2022 Cervical Cancer Screening 02/25/2029 HPV/Cotest 02/25/2029 02/26/2024 DTaP/Tdap/Td Vaccines (3 - Td or Tdap) 07/10/2031 07/10/2021, 03/04/2012 RSV Patients and Patients Aged 60 years or older Completed 01/29/2024 Zoster Vaccines Completed 01/29/2024, 11/28/2023 Hepatitis C Screening Completed 02/12/2024 HIB Vaccines Aged Out No longer eligi ble based on patient's age to complete this topic HPV Vaccines Aged Out No longer eligi ble based on patient's age to complete this topic Hepatitis A Vaccines Aged Out No long er eligible based on patient's age to complete this topic IPV Vaccines Aged Out No longer eligi ble based on patient's age to complete this topic Meningococcal Vaccine Aged Out No julissa maximino eligible based on patient's age to complete this topic RSV under 20 months Aged Out No longe r eligible based on patient's age to complete this topic Rotavirus Vaccines Aged Out No longer eligible based on patient's age to complete this topic Procedures Procedure Name Priority Date/Time Associated Diagnosis Comments BI MAMMOGRAM SCREENING TOMOSYNTHESIS BILATERAL Urgent 03/18/2024 11:51 AM EDT Breast cancer screening by mammogram Family history of breast cancer in mother HPV MRNA E6/E7 REFLEX TO HPV 16, 18/45 Routine 02/26/2024 9:27 AM EDT Screen for colon cancer PAP SMEAR Routine 02/26/2024 9:27 AM EDT Cervical cancer screening HEPATITIS C ANTIBODY Routine 02/12/2024 10:43 AM EDT Need for hepatitis C screening test LIPID PANEL, STANDARD Routine 02/12/2024 10:43 AM EDT Hypertension, unspecified type from Last 3 Months or Most Recently Relevant to Health Maintenance Results * BI Mammogram Screening Tomosynthesis Bilateral (03/18/2024 11:51 AM EDT) Anatomical Region Laterality Modality Breast Bilateral Mammography 03/18/2024 11:5 1 AM EDT Narrative 03/23/2024 10:04 AM EDT ? [facility] ? [address] ?[place] [address] ? Mammography Report ? Signed ? Patient: Pamela,Amanda N ?MR#: [id number] ?? 10 ? : 1965 ?Acct:[id number] ? Age/Sex: 58 / F ?ADM Date: 04/24/24 ? Loc: HO.MAMMO ? Attending Dr: Ryley Oseguera CNM ? Ordering Physician: RYLEY OSEGUERA CNM ?Results: 1 ?? Negative ? Date of Service: 03/18/24 ?Follow Up: 1 Year From Orig ?? inal Mammogram ? Procedure(s): MM tomosynthesis screening BI ?? Accession Number(s): [id number] ? cc: Name,Leonardo LAYNE; RYLEY OSEGUERA CNM ? EXAMINATION: ?? MM SCREENING DIGITAL BREAST TOMOSYNTHESIS, BILATERAL ? CLINICAL INFORMATION: ? Screening. Asymptomatic. ? COMPARISON: ?? Mammography: This study is compared with prior exams dating back to ?? 2018. ? TECHNIQUE: ?? Digital breast tomosynthesis is performed in both the craniocaudal and ?? mediolateral oblique views along with computer-aided detection (CAD). ?? Synthesized 2D images are generated from the tomosynthesis. ? FINDINGS: ?? There are scattered areas of fibroglandular density (ACR BI-RADS breast ?? composition Category b). ? There are no significant masses, abnormal calcifications, or other ?? abnormalities. ? MM/MM tomosynthesis screening BI ?? IMPRESSION: ?? No mammographic evidence of malignancy. ? ASSESSMENT: ? BI-RADS BI-RADS 1 - Negative ? RECOMMENDATION: ?? Routine annual mammography screening. ? 1 year F/U ? This examination should not preclude the clinical evaluation of a ?? suspicious palpable abnormality. ? This patient's information was entered into a reminder system with a ?? target due date for their next mammogram. ? Dictated By: ?Enma Moore MD ? Signed By: ?<Electronically signed by Enma Moore MD in OV> ? 03/23/24 1000 ? DD/ 1151 ? TD/TT: ? Record Center Coordinator: ? Procedure Note Donotuseinterpreter, Image - 03/23/2024 Lindsey [facility] [address] [place], [place] [address] Mammography Report Signed Patient: Amanda Santiago NMR#: [id number] 10 : 1965Acct:[id number] Age/Sex: 58 / FADM Date: 03/18/24 Loc: HO.MAMMO Attending Dr: Ryley Oseguera CNM Ordering Physician: RYLEY OSEGUERAesults: 1 Negative Date of Service: 03/18/24Follow Up: 1 Year From Orig inal Mammogram Procedure(s): MM tomosynthesis screening BI Accession Number(s): [id number] cc: Leonardo Gandhi MD; RYLEY OSEGUERA CNM EXAMINATION: MM SCREENING DIGITAL BREAST TOMOSYNTHESIS, BILATERAL CLINICAL INFORMATION: Screening. Asymptomatic. COMPARISON: Mammography: This study is compared with prior exams dating back to 2019. TECHNIQUE: Digital breast tomosynthesis is performed in both the craniocaudal and mediolateral oblique views along with computer-aided detection (CAD). Synthesized 2D images are generated from the tomosynthesis. FINDINGS: There are scattered areas of fibroglandular density (ACR BI-RADS breast composition Category b). There are no significant masses, abnormal calcifications, or other abnormalities. MM/MM tomosynthesis screening BI IMPRESSION: No mammographic evidence of malignancy. ASSESSMENT: BI-RADS BI-RADS 1 - Negative RECOMMENDATION: Routine annual mammography screening. 1 year F/U This examination should not preclude the clinical evaluation of a suspicious palpable abnormality. This patient's information was entered into a reminder system with a target due date for their next mammogram. Dictated By: Enma Moore MD Signed By: <Electronically signed by Enma Moore MD in OV> 03/23/24 1000 DD/ 1151 TD/TT: Record Center Coordinator: Ryley Oseguera CNM IMG BI PROCEDURES Edited Result - Final * HPV mRNA E6/E7 w/Reflex to HPV Genotypes 16, 18/45 (02/26/2024 9:27 AM EDT) HPV nRNA E6/E7 Not Detected Not Detected [facility] Comment:Methodology: Transcr iption-Mediated AmplificationThis assay detects E6/E7 viral messenger RNA (mRNA) from 14high-risk HPV types (16,18,31,33,35,39,45,51,52,56,58,59,66,68).Cervical sources are required for HPV testing.If a vaginal source from a patient who has had atotal hysterectomy with removal of cervix wassubmitted, please contact the testing laboratoryfor alternative testing options.For additional information, please refer tohttp://education.[employer]/faq/IVG254i7(This link if provided for information/educational purposes only.)THIS TEST WAS PERFORMED AT:[facility] [place] [phone] BRAVO MD HPV mRNA E6/E7 [facility] HPV 16 RNA [facility] HPV 18/45 RNA [facility] 02/26/2024 9:27 AM EDT 02/27/2024 6:30 AM EDT Ryley Oseguera CNM LAB CYTOLOGY ORDERABLES F inal Result [facility] [address] [place] [phone] * Pap Smear (02/26/2024 9:27 AM EDT) Swab Cervix uteri structure / Unknown 02/26/2024 9:27 AM EDT 02/27/2024 6:30 AM EDT Narrative [facility] - 03/14/2024 4:22 PM EDT ----- ------- Name: Amanda Santiago ? Age/Sex: 58/F ? : 1965 Unit#: [id number] ?? Attend Dr: RYLEY OSEGUERA CNM ?Re02/26/24 ?Status: DEP REF ? Location: HO.LNP ?Disch: ? ----- ------- SPEC : [id number] ? RECD: 02/27/24 ? STATUS: ??SOUT ? REQ NUM: [id number] ? JOSSELINE: 02/26/24 ? SUBM DR: RYLEY OSEGUERA CNM ? ENTERED: ??02/27/24 ?SP TYPE: Pap Smr ?OTHR : ? ORDERED: ??Pap Smear ? Interpretation ?? Satisfactory for evaluation. ?? No endocervical cells seen. ?? Negative for intraepithelial lesion or malignancy. ? HPV mRNA E6/E7: ?NOT DETECTED ? This assay detects E6/E7 viral messenger RNA (mRNA) from 14 high-risk HPV types (16, 18, ?? 31, 33, 35, 39, 45, 51, 52, 56, 58, 59, 66, 68) ? HPV testing performed by [employer], [place], [place]. ??See reference laboratory ?? portion of the EMR for entire report. ?Clinical Information LMP: Postmenopausal Previous PAP test: Unknown date/findings ? Material Received ?? ThinPrep-Cervical ----- ------- Signed (signature on file) Roxie Dasilva Alfred 03/14/242 ? ----- ------- ? END OF REPORT ? Ryley LOPEZM LAB CYTOLOGY ORDERABLES F inal Result Performing Organization Address [facility] de Phone Number [facility] [address] [place] [phone] [phone] * Hepatitis C Ab (02/12/2024 10:43 AM EDT) Hepatitis C Antibody Nonreactive Nonreactive [facility] Comment:Antibodies to HCV no t detected; does not exclude early acuteHCV infection. Blood Venous blood specimen / Unknown 02/12/2024 10:43 AM EDT 02/12/2024 11:20 AM EDT Leonardo Gandhi MD LAB BLOOD ORDERABLES Final Resul t Performing Organization Address [facility] de Phone Number [facility] [address] [place] [phone] * (ABNORMAL) Lipid Panel, Standard (02/12/2024 10:43 AM EDT) Triglycerides 72 <150 mg/dL [facility] Comment:Desirable Triglyceri de: less than 150 mg/dLBorderline High Triglyceride 150-199 mg/dLHigh Triglyceride: 200-499 mg/dLVery High Triglyceride: greater than or equal to 5OO mg/dL Cholesterol 184 <200 mg/dL [facility] Comment:Desirable Cholestero l: less than 200 mg/dLBorderline High Cholesterol: 200-239 mg/dLHigh Cholesterol: greater than 239 mg/dL LDL Cholesterol Calculated 109(H) <100 mg/dL [facility] Comment:Desirable LDL: less than 100 mg/dLNear Optimal/Above Optimal LDL: 110- 129 mg/dLBorderline High LDL: 130-159 mg/dLHigh LDL: 160-189 mg/dLVery High LDL: greater than or equal to 190 mg/dL HDL Cholesterol 61 >40 mg/dL [facility] Comment:Desirable HDL: great er than 40 mg/dL Note: This HDL assay may give artificially low results in patients with liver disease. Blood Venous blood specimen / Unknown 02/12/2024 10:43 AM EDT 02/12/2024 11:20 AM EDT us Leonardo Gandhi MD LAB BLOOD ORDERABLES Final Resul t [facility] [address] [place] [phone] from Last 3 Months or Most Recently Relevant to Health Maintenance Insurance [facility] Care Teams Auditing Manager Relationship Specialty Start Date End Date Name, MD Leonardo [address] [place] [address] PCP - General Family Medicine 08/04/19
--- OUTSIDE RECORDS SUMMARY | 2024-12-29 06:31 | XMS_ITS | Encounter Summary ---
Author Organization [employer] Address [address] [facility] 7t [place] [address] Care Team Providers Care Inside Outside Sales Representative Name Role Phone Name, Leonardo LAYNE Primary Care Provider [phone] Encounter Details Date Type Department Care Team (Late Contact Info) Description 05/08/2023 Abstract [facility] [address] [place] [phone] NameLeonardo MD [address] [place] [phone] Social History Tobacco Use Types Packs/Day Years Used Date Smoking Tobacco: Never Smokeless Tobacco: Never Alcohol Use Standard Drinks/Week Comments Never 0 (1 standard drink = 0.6 oz pur e alcohol) Depression Answer Date Recorded Patient Health Questionnaire-2 Score 0 01/28/2023 Comments Unknown Sex and Gender Information Value Date Recorded Sex Assigned at Female 09/24/2022 10:15 AM EDT Legal Sex Female 10:15 AM EDT Gender Identity Female 09/24/2022 10:15 AM EDT Sexual Orientation Choose not to disclose 2021 10:15 AM EDT documented as of this encounter Plan of Treatment Upcoming Encounters Date Type Department Care Team (Late Contact Info) Description 01/12/2025 11:30 AM EST Office Visit [address] [phone] Leonardo Gandhi MD [address] [place] [phone] 02/25/2025 10:00 AM EDT Office Visit [address] [place] [address] Nany Stewart CNM [address] [place], [place] [phone] documented as of this encounter Visit Diagnoses Not on filedocumented in this encounter Care Teams Inside Outside Sales Representative Relationship Specialty Start Date End Date Name, MD Leonardo [address] [place], [place] [phone] PCP - General Family Medicine 08/04/19 documented as of this encounter
--- OUTSIDE RECORDS SUMMARY | 2024-12-29 06:31 | XMS_ITS | Encounter Summary ---
Author Organization [employer] Address [address] [facility] 7 [place] [address] Care Team Providers Care Electronic Equipment Set Up Operator Name Role Phone Name, Leonardo LAYNE Primary Care Provider [phone] Encounter Details Date Type Department Care Team (Late Contact Info) Description 11/22/[address] [phone] NameLeonardo MD [address] [place] [phone] Social History Tobacco Use Types Packs/Day Years Used Date Smoking Tobacco: Never Assessed Comments Unknown Sex and Gender Information Value [...] Description 01/12/2025 11:30 AM EST Office Visit [address] [phone] NameLeonarod MD [address] [place] [address] [phone] 02/25/2025 10:00 AM EDT Office Visit [address] [phone] Nany Stewart CNM [address] [place] [address] [phone] documented as of this encounter Visit Diagnoses Not on filedocumented in this encounter Care Teams Electronic Equipment Set Up Operator Relationship Specialty Start Date End Date Name, MD Leonardo [address] [place] [address] PCP - General Family Medicine 08/04/19 documented as of this encounter
[2024-12-29 06:39] VITALS: BMI 40.7
[2024-12-29 06:47] VITALS: BP 156/94; PULSE 93; RESP 15; TEMP 36.5; O2SAT 95
[2024-12-29] MEDS: Lactated Ringers 1,000 ML 100 ML IVCONT (06:56)
--- NOTE | 2024-12-29 07:53 | MHC.SHP ---
Pre-Procedural Eval Section A - 24 Hr Update-Section A only Date of Service: 12/29/24 Section B - Complete if H&P > 30 days Chief Complaint: Hyperplastic gastric polyps Details of Present Illness: GERD (gastroesophageal reflux disease) HTN (hypertension) Surgical History History of surgery on right wrist History of surgery H/O left wrist surgery Status post total hip replacement, right Present Medications: see Short Stay Collaborative assessment Allergies: Allergies Allergy/AdvReac Type Severity Reaction Status Date / Time ibuprofen Allergy Unknown kidney Verified 12/29/24 06:33 problems Review of Systems Review of Systems Comment: Ten point ROS negative Exam Exam Comment: Gen appear: No acute distress HEENT: no icterus Chest: No overt resp distress Abd: soft, nontender, nondistended Psych: Stable affect, answering questions appropriately Neuro: A/Ox3 noted to move all extremities spontaneously Ext: no peripheral edema Plan Diagnosis/Plan: Unchanged I have reviewed the history and physical and performed a pertinent physical examination on my patient. No changes have occurred unless specified. Time Spent With Patient Time: Total time managing care of this patient today ____ minutes.
--- NOTE | 2024-12-29 07:56 | HO.ANESPROP2 ---
[facility] Active Problems Active Problems: All Active Problems Encounter for screening colonoscopy (Acute) Osteopenia determined by x-ray (Acute) Right leg pain (Acute) Tibial plateau fracture, right (Acute) Closed femur fracture (Acute) Fracture of wrist (Acute) GERD (gastroesophageal reflux disease) (Acute) Past Medical History Medical History Kidney stones GERD (gastroesophageal reflux disease) HTN (hypertension) Functional capacity: independent ambulation Patient : No Family History Family History Mother Cancer Father Diabetes mellitus, type II Brother Diabetes Family history of problems with anesthesia: No Surgical History Surgical History Hx of cystoscopy History of esophagogastroduodenoscopy (EGD) Hx of colonoscopy History of surgery on right wrist History of surgery H/O left wrist surgery Status post total hip replacement, right History of Problems with Anesthesia: No Social History Social History Household Members: Family Household Members Other:: youngest brother, oldest granson, daughter (duplex) Housing: House Do you presently have visiting nurse or other home services: No Alcohol intake: current Alcohol intake frequency: does not drink Patient Tobacco Use Status: Never used Tobacco Use of substances other than those prescribed or required for medical reasons: No Are you DNR?: No Advance Directives: No Advance Directives Information Provided: Yes service: No Current occupational status: disabled Current occupation: rt handed Meds Allergies Allergy/AdvReac Type Severity Reaction Status Date / Time ibuprofen Allergy Unknown kidney Verified 12/29/24 06:33 problems Active Medications: Current Medications Lactated Ringer's (Lr) 1,000 mls @ 100 mls/hr IVCONT .Q10H KARI Last Admin: 12/29/24 06:56 Dose: 100 mls/hr Home Medications ?Medication ?Instructions ?Recorded ?Confirmed ?Last Taken ?Type lisinopril 20 1 tab PO DAILY 09/05/21 12/25/24 12/29/24 05:00 History mg-hydrochlorothiazide 12.5 mg tablet pantoprazole 40 mg tablet,delayed 1 tab PO DAILY 09/05/21 12/25/24 12/29/24 05:00 History release acetaminophen 650 mg 650 mg PO TID 03/19/24 12/25/24 Unknown History tablet,extended release amlodipine 10 mg tablet 10 mg PO DAILY 03/19/24 12/25/24 12/29/24 05:00 History Exam Height,Weight and Vital Signs: Height 5 ft 3 in Weight 104.326 kg Last Vital Signs Temp 97.7 F 12/29/24 06:47 Pulse 93 12/29/24 06:47 Resp 15 12/29/24 06:47 BP 156/94 H 12/29/24 06:47 Pulse Ox 95 12/29/24 06:47 O2 Del Method Room Air 12/29/24 06:47 Airway Mallampati Class: II TM Dist: >3cm Neck ROM: Full Heart: RRR Lungs: CTA Assessment and Plan Assessment Anesthesia Assessment: Anesthesia Plan Discussed and Chart Reviewed Final Anesthetic Review Family History of Problems with Anesthesia: No History of Problems with Anesthesia: No NPO: Yes ASA Class: II and III Final Preanesthetic Review: Meds/Allgs Chart Reviewed, Consent Obtained/Reviewed and Anes Risks/Benef Reviewed Patient Risk: Intermediate Procedure Risk: Low Anesthetic Plan Anesthetic Plan: MAC: Disposition: Standard PACU
--- NOTE | 2024-12-29 08:24 | P.OP_ITS ---
Operative Note Operative Note Date of Service: 12/29/24 Narrative: Procedure: Esophagogastroduodenoscopy Endoscopist: Dora Rodriguez MD Indication: Gastric and duodenal polyps Anesthesia Provider: Abbie Herrera MD Anesthesia Type: MAC ?? EGD Procedure:?? The procedure, indications, preparation and potential complications were reviewed with the patient, who indicated understanding and gave written informed consent to proceed. A physical exam was performed. The endoscope was introduced through the mouth, and advanced to the second part of duodenum. The mucosa was carefully examined on slow withdrawal of the endoscope. The patient tolerated the procedure well. There were no immediate complications.? ? EGD Findings:? * Esophagus:? Normal mucosa noted in the entire esophagus. The Z line was at 33 cm and displaced by a medium sized hiatal hernia with the diaphragmatic hiatus at 36 cm.. * Stomach:? Normal mucosa was noted in the stomach. Numerous polyps ranging from 2 mm to 8 mm were noted the body and fundus of the stomach. The larger of these polyps were removed with cold snare polypectomy. Retroflexion was performed in the cardia that showed Hill grade III hiatal hernia. * Duodenum:? Normal mucosa was noted in the whole of the examined duodenum. No residual polyp was noted in the whole of examined duodenum. ? EGD Impressions:? * Normal esophagus * Hiatal hernia * Gastric polyps (polypectomy) * Normal duodenum ?? Recommendations:?? * Follow path results. Our office will call or send a letter with results within 7-10 days. * Avoid NSAIDs. * Cont PPI * Recommend repeat EGD in a year, and if no duodenal polyp noted at that time either can defer further endoscopic surveillance. Above has been reviewed with the patient.
[2024-12-29 08:28] VITALS: BP 86/56; PULSE 79; RESP 16; TEMP 36.3; O2SAT 95
[2024-12-29 08:40] VITALS: BP 114/78; PULSE 87; RESP 16; O2SAT 99
--- NOTE | 2024-12-29 08:52 | HO.POSTANES ---
Post Anesthesia Evaluation Post Anesthesia Evaluation Date of Service: 12/29/24 Vital Signs: Vital Signs Temp Pulse Resp BP Pulse Ox O2 Del Method 12/29/24 08:40 87 16 114/78 99 Room Air 12/29/24 08:28 97.3 F 79 16 86/56 L 95 Room Air 12/29/24 06:47 97.7 F 93 15 156/94 H 95 Room Air Anesthesia: Monitored Mental Status: Awake Pain Control: Satisfactory Nausea/Vomiting: None Hydration: Adequate Anesthesia-Related Issues: No Anes. Related Issues
[2024-12-29 08:55] VITALS: BP 122/68; PULSE 79; RESP 16; TEMP 36.1; O2SAT 99
== END 2024-12-29 09:22 | disposition home or self-care (01) ==
PROVIDERS: PCP Internal Medicine Geriatric Medicine; Visit Provider Internal Medicine
PROC: 0DJ08ZZ Inspection of Upper Intestinal Tract, Via Natural or Artificial Opening Endoscopic (ICD-10-PCS; CPT 43235; principal; 2024-12-29 07:30)
DX: K31.7 Polyp of stomach and duodenum (principal); K44.9 Diaphragmatic hernia without obstruction or gangrene; K21.9 Gastro-esophageal reflux disease without esophagitis; I10 Essential (primary) hypertension; Z87.442 Personal history of urinary calculi; Z79.899 Other long term (current) drug therapy; Z88.6 Allergy status to analgesic agent; Z96.641 Presence of right artificial hip joint; Z98.890 Other specified postprocedural states
CPT/HCPCS: 43251; 88305; J2003; J2704

== ENCOUNTER → 2024-12-29 06:29 | Outpatient (BNV) | payer OTHER, SELFPAY | PROVIDERS: PCP Internal Medicine Geriatric Medicine; Visit Provider Internal Medicine | DX: K31.7 Polyp of stomach and duodenum (principal) | CPT/HCPCS: 43251 ==

== ENCOUNTER 2025-01-29 16:26 | Emergency (ER) | payer OTHER, SELFPAY ==
--- NOTE | ~2025-01-29 | XR_ITS ---
EXAMINATION: XR HUMERUS RIGHT, XR SHOULDER 1 VIEW RIGHT HISTORY: Fall, right upper extremity, shoulder pain, R/O FX COMPARISON: There are no prior studies available for comparison. FINDINGS: Two views of the right shoulder and AP and lateral views of the right humerus are submitted. Osseous mineralization is normal. There is a transverse fracture of the midshaft of the humerus which is mildly displaced and slightly angulated. The visualized shoulder and elbow joint spaces are preserved. The soft tissues are unremarkable. XR/XR humerus RT IMPRESSION: Transverse fracture of the midshaft of the humerus. Electronically signed by: Bill Kendrick MD 02/01/2025 08:13 AM EDT
--- NOTE | ~2025-01-29 | XR_ITS ---
CLINICAL HISTORY: fall, shoulder pain, R O fracture, dislocations 3 views right shoulder Comparison: none. Findings: No dislocations. No significant arthritic change. The acromioclavicular joint is in good alignment. Visualized portions of scapula and right chest wall are unremarkable. No radiopaque foreign body. Impression: There is a jagged transverse fracture of the mid diaphysis of the humerus with 12 mm displacement. No acute skeletal abnormality of the right shoulder. This document has been electronically signed by: Awais Patiño MD on 01/29/2025 18:36:36
--- NOTE | 2025-01-29 16:57 | ED_ITS ---
HPI - Fall General Chief Complaint: Fall Stated Complaint: FALL DOWN 2 STAIRS, R SHOLDER PAIN ONLY Time Seen by Provider: 01/29/25 16:46 Source: patient Mode of arrival: EMS Limitations: no limitations History of Present Illness ED Provider: Dr. Román Howard HPI Narrative: 59-year-old female history of GERD who presents emergency department for evaluation of injury to her right shoulder after a fall. Apparently the patient was going down 2 stairs, fell and landed on her right shoulder. She denied any head injury or loss of consciousness. She was complaining of severe pain in her right shoulder . Patient has her arm flexed above her right head and is unable to move it from this position secondary to her pain. She denied being ill in any way prior to the fall. Related Data Home Medications ?Medication ?Instructions ?Recorded ?Confirmed lisinopril 20 1 tab PO DAILY 09/05/21 12/25/24 mg-hydrochlorothiazide 12.5 mg tablet pantoprazole 40 mg tablet,delayed 1 tab PO DAILY 09/05/21 12/25/24 release acetaminophen 650 mg 650 mg PO TID 03/19/24 12/25/24 tablet,extended release amlodipine 10 mg tablet 10 mg PO DAILY 03/19/24 12/25/24 Previous Rx's ?Medication ?Instructions ?Recorded Adult Diaper #1 ea 09/29/21 morphine 15 mg immediate release 15 mg PO Q6H PRN pain #14 tabs 01/29/25 tablet ondansetron HCl 4 mg tablet 4 mg PO Q8H PRN nausea and 01/29/25 vomiting #20 tabs Allergies Allergy/AdvReac Type Severity Reaction Status Date / Time ibuprofen Allergy Unknown kidney Verified 01/29/25 17:06 problems Review of Systems Review of Systems: Yes all other systems are reviewed and are negative PMFSH Past Medical History Medical History Kidney stones GERD (gastroesophageal reflux disease) HTN (hypertension) Surgical History Hx of cystoscopy History of esophagogastroduodenoscopy (EGD) Hx of colonoscopy History of surgery on right wrist History of surgery H/O left wrist surgery Status post total hip replacement, right Family History Family History Mother Cancer Father Diabetes mellitus, type II Brother Diabetes Social History Social History Household Members: Family Household Members Other:: youngest brother, oldest granson, daughter (duplex) Housing: House Do you presently have visiting nurse or other home services: No Alcohol intake: current Alcohol intake frequency: does not drink Patient Tobacco Use Status: Never used Tobacco Advance Directives: No Advance Directives Information Provided: Yes service: No Current occupational status: disabled Current occupation: rt handed Physical Exam Vital Signs: Vital Signs: Last Vital Signs Temp 98.3 F 01/29/25 20:06 Pulse 66 01/29/25 20:06 Resp 18 01/29/25 20:06 BP 109/49 L 01/29/25 20:06 Pulse Ox 98 01/29/25 20:06 O2 Del Method Room Air 01/29/25 20:06 BMI result Body Mass Index 35.9 Exam: General: Awake, alert , appears to be in severe distress secondary to her pain Head: Normocephalic, atraumatic Extremities: the right upper extremity is flexed with her right arm above her head, she was significant pain with palpation over his shoulder joint, extremities neurovascular intact Neuro: Awake, alert, oriented, normal speech, cranial nerves intact, moves all extremities symmetrically Medications Administered Discontinued Medications Generic Name Dose Route Start Last Admin Trade Name Freq PRN Reason Stop Dose Admin Hydromorphone HCl 1 mg 01/29/25 16:55 01/29/25 17:02 Hydromorphone Hcl 1 Mg/Ml Syringe IVPUSH 01/29/25 16:56 1 mg ONCE STA Administration Protocol Hydromorphone HCl 1 mg 01/29/25 18:00 01/29/25 18:12 Hydromorphone Hcl 1 Mg/Ml Syringe IVPUSH 01/29/25 18:01 1 mg ONCE STA Administration Protocol Hydromorphone HCl 1 mg 01/29/25 19:56 01/29/25 20:00 Hydromorphone Hcl 1 Mg/Ml Syringe IVPUSH 01/29/25 19:57 1 mg ONCE STA Administration Protocol Medical Decision Making Medical Decision Making MDM Narrative: 59-year-old female history of GERD who presents emergency department for evaluation of injury to her right shoulder after a fall. Apparently the patient was going down 2 stairs, fell and landed on her right shoulder. She denied any head injury or loss of consciousness. She was complaining of severe pain in her right shoulder . Patient has her arm flexed above her right head and is unable to move it from this position secondary to her pain. She denied being ill in any way prior to the fall. Differential diagnosis: Includes but is not limited to right shoulder fracture, right shoulder dislocation, right shoulder contusion Course: 17:00 I ordered IV insertion and Dilaudid 1 mg IV. Two view right shoulder x-ray will be obtained to further evaluate her injury. 19:21 The patient required 2 more doses of Dilaudid 1 mg IV to help control her pain with the 2nd dose given just before discharge. X-ray of the patient's right shoulder and humerus did reveal a mid shaft humeral fracture and I did discuss this with the patient and the patient's family. I did discuss this over tiger text with the covering orthopedic physician medical assistant internal medicine, Lowell Nolan. He recommended placing the patient in a sling for comfort and to let her arm hang in the sling. Patient will need follow-up within 1-2 weeks with Orthopedics. She was advised to take Tylenol 1000 mg every 6 hours as needed for pain. For pain not relieved by Tylenol she was prescribed Dilaudid 4 mg every 6 hours as needed for pain. She was also given a prescription for Zofran 4 mg ODT as needed for nausea and vomiting. She was given printed and verbal instructions and discharged home. 21:41 I was contacted by the [facility] nursing environmental services supervisor. Dilaudid is on back quarter at the [facility] on [address] in [place] therefore I cancel this prescription and sent a prescription for morphine 15 mg every 6 hours as needed for pain. I did talk to the patient's daughter, Philly and did tell her about this change in medications. Admission/Observation Consideration of admission/observation: Escalation of care including admission/observation considered ( No) Consult Healthcare Provider Management of the patient was discussed with: Business Banking Manager Orthopedic physician medical assistant internal medicine on-call, Lowell Nolan Independent Interpretation I performed an independent interpretation of an: Plain X-Ray Interpretation: My interpretation of the shoulder and right humerus x-ray is as follows: No shoulder dislocation, mid shaft displaced humeral fracture. Radiology Impression Discussion of test interpretation with radiology: I have reviewed the radiologist's reading. Radiologist Impression: 3 views right shoulder Comparison: none. Findings: No dislocations. No significant arthritic change. The acromioclavicular joint is in good alignment. Visualized portions of scapula and right chest wall are unremarkable. No radiopaque foreign body. Impression: There is a jagged transverse fracture of the mid diaphysis of the humerus with 12 mm displacement. No acute skeletal abnormality of the right shoulder. This document has been electronically signed by: Awais Patiño MD on 01/29/2025 18:36:36 Independent Historian Clinical information obtained from an independent historian. History obtained from or confirmed by: Other (Daughters) Prescription Management I considered prescription management with: Pain Medication (Opiate: Dilaudid) and Other (Antiemetic: Zofran) Discharge Plan Discharge Clinical Impression: Fall, Fracture, humerus closed Patient Disposition: Home, Self-Care Instructions: Arm Fracture in Adults (ED) Additional Instructions: You broke the bone of your upper arm call the humerus. This is often treated with a sling and sometimes requires a surgical repair. Keep the sling on until you are re-evaluated by Dr. Alegria's office. Please call his office Saturday morning to make a follow-up appointment within 1-2 weeks for re-evaluation of this broken bone. You can apply ice to the area that hurts for 15 minutes 4 to 6 times a day to help reduce the pain and swelling. Take Tylenol (acetaminophen) 500 mg pills, 2 pills every 6 hours as needed for pain. For pain not relieved by ibuprofen or Tylenol take dialogue 4 mg pills, 1 pill every 6 hours as needed for pain. This medication will make you sleepy, do not drive or work while taking this medication. Morphine is a narcotic medication and can be addicting. If you are concerned about addiction you can ask the pharmacist for less pills or do not get this prescription filled. Take Zofran ODT 4 mg pills, 1 pill dissolved in your mouth every 8 hours as needed for nausea and vomiting. Follow-up with Dr. Alegria's office in 1-2 weeks. Please return to the emergency department if your symptoms get worse or if you develop any symptoms that are concerning to you. Prescriptions: New ondansetron HCl 4 mg tablet 4 mg PO Q8H PRN (Reason: nausea and vomiting) Qty: 20 0RF morphine 15 mg tablet 15 mg PO Q6H PRN (Reason: pain) Qty: 14 0RF Rx Instructions: Partial Fill upon patient request. No Action (DME) Adult Diaper See Rx Instructions .Route .MEDSUPPLY Qty: 1 0RF Rx Instructions: As directed lisinopril-hydrochlorothiazide 20-12.5 mg tablet 1 tab PO DAILY pantoprazole 40 mg tablet,delayed release (DR/EC) 1 tab PO DAILY amlodipine 10 mg tablet 10 mg PO DAILY acetaminophen 650 mg tablet extended release 650 mg PO TID Referrals: Juan Miguel Alegria MD [Physician] - 2 weeks (Mid shaft, displaced, humerus fracture) Interventions: ED Discharge Assessment Last Done: 01/29/25 20:06 Discharge Date/Time: 01/29/25 20:11 Print Language: Nepali
[2025-01-29] MEDS: HYDROmorphone HCl 1 MG/ML SYRINGE IVPUSH ×3 (17:02→20:00)
[2025-01-29 17:03] VITALS: BP 143/72; PULSE 98; RESP 20; O2SAT 100; BMI 35.9
[2025-01-29 19:47] VITALS: BP 109/49; PULSE 66; RESP 18; TEMP 36.8; O2SAT 98
[2025-01-29 20:06] VITALS: BP 109/49; PULSE 66; RESP 18; TEMP 36.8; O2SAT 98
== END 2025-01-29 20:11 | disposition home or self-care (01) ==
PROVIDERS: Emergency Provider Emergency Medicine Emergency Medical Services; PCP Internal Medicine Geriatric Medicine
DX: S42.321A Displaced transverse fracture of shaft of humerus, right arm, initial encounter for closed fracture (principal); I10 Essential (primary) hypertension; W10.9XXA Fall (on) (from) unspecified stairs and steps, initial encounter; Y93.9 Activity, unspecified; Y92.9 Unspecified place or not applicable; Y99.9 Unspecified external cause status
CPT/HCPCS: 73020; 73060; 96374; 96376; 99283; 99284; J1171

== ENCOUNTER → 2025-01-29 16:55 | Outpatient (BNV) | payer OTHER, SELFPAY | PROVIDERS: Emergency Provider Emergency Medicine Emergency Medical Services; PCP Internal Medicine Geriatric Medicine; Visit Provider Radiology Diagnostic Radiology | DX: S42.321A Displaced transverse fracture of shaft of humerus, right arm, initial encounter for closed fracture (principal); W19.XXXA Unspecified fall, initial encounter | CPT/HCPCS: 73020; 73060 ==

== ENCOUNTER 2025-02-08 11:09 | Outpatient (REF) | payer OTHER, SELFPAY ==
--- NOTE | ~2025-02-08 | XR_ITS ---
EXAMINATION: XR HUMERUS RIGHT HISTORY: S42.301A - Unspecified fracture of shaft of humerus, right arm, initial ... COMPARISON: Comparison is made with the prior examination dated 01/29/2025. FINDINGS: AP and lateral views of the right humerus are submitted. Osseous mineralization is normal. Again seen is a fracture of the midshaft of the humerus. There is approximately one shaft's width medial displacement of the distal fracture fragment and slight medial angulation. The visualized shoulder and elbow joint spaces are preserved. The soft tissues are unremarkable. XR/XR humerus RT IMPRESSION: Displaced and angulated fracture of the midshaft of the right humerus as described. Electronically signed by: Bill Kendrick MD 02/09/2025 08:16 AM EDT
== END 2025-02-08 11:10 | disposition home or self-care (01) ==
LOC: HO.HOSX 11:09
PROVIDERS: Visit Provider Physician Assistant
DX: S42.301D Unspecified fracture of shaft of humerus, right arm, subsequent encounter for fracture with routine healing (principal)
CPT/HCPCS: 73060; 99212

== ENCOUNTER 2025-02-08 13:51 | Outpatient (AMB) | payer OTHER, SELFPAY ==
--- NOTE | 2025-02-08 13:53 | MHC.OFFVIS ---
Vital Signs 02/08/25 14:22 Height 5 ft 7 in Weight 229 lb BMI 35.9 Intake Visit Reasons: FC-Fracture , humerus closed, Right-DOI 01/29/25 Intake Note: Amanda is a 59 year old right hand dominant female who presents today for a fracture care visit s/p fall DOI: 01/29/25. Patient reports she was going down the stairs when she fell and landed on her right shoulder. She presented to [facility] ER that same day where x-rays were taken and was placed in a sling. She has constant pain that fluctuated in intensity. Her current pain level is a 6 out of 10. States a little numbness and tingling in her fingers. She mentions after this recent fall her right leg feels tingly and warm/hot to the touch. States history of hip replacement and femur repair in the past. Allergies ibuprofen Allergy (Unknown, Verified 02/08/25 14:21) kidney problems HPI HPI FC-Fracture , humerus closed, Right-DOI 01/29/25: Details: 59-year-old female presents to the office today for an injury she sustained to her right arm on 01/29/2025. She states she fell on the stairs resulting in the injury. She was seen in the emergency department where x-rays were obtained showing a minimally displaced right humeral shaft fracture. She was placed in a splint and a sling and referred to our office for ortho eval. [facility] Medical History Kidney stones GERD (gastroesophageal reflux disease) HTN (hypertension) Surgical History Hx of cystoscopy History of esophagogastroduodenoscopy (EGD) Hx of colonoscopy History of surgery on right wrist History of surgery H/O left wrist surgery Status post total hip replacement, right Family History Mother Cancer Father Diabetes mellitus, type II Brother Diabetes Social History Household Members: Family Household Members Other:: youngest brother, oldest granson, daughter (duplex) Housing: House Do you presently have visiting nurse or other home services: No Alcohol intake: current Alcohol intake frequency: does not drink Patient Tobacco Use Status: Never used Tobacco service: No Current occupational status: disabled Current occupation: rt handed Review of Systems Const All systems reviewed & are unremarkable except as noted in HPI and below Physical Exam Vital Signs: BMI result Body Mass Index 35.9 Const General: cooperative and no acute distress Orientation/consciousness: patient oriented x3 Resp Effort & Inspection: normal respiratory effort and able to speak in complete sentences Cardio Peripheral pulses: Peripheral pulses 2+ throughout Neuro General: patient oriented x3 Extrem Other: Right shoulder significant swelling and ecchymosis present with tenderness over the fracture site. She has good elbow range of motion she can supinate and pronate without pain. Anterior deltoid sensation intact. She has good wrist flexion extension and can abduct the thumb. Office Procedures AMB Fracture Care Fracture Billing Code: Fracture Billing Code Results Reviewed Results Reviewed: X-rays of the right humerus obtained in the office today and reviewed by me show minimally displaced right humerus fracture. Assessment & Plan Assessment & Plan (1) Fracture of humeral shaft, right, closed: Code(s): S42.301A - Unspecified fracture of shaft of humerus, right arm, initial encounter for closed fracture Category: Medical Plan This time she was placed in a right humerus coaptation splint. I explained the extent of the injury does not require surgical intervention and will reduce on its own with gravity and surrounding structures. I recommend no lifting pushing pulling or carrying anything with that right upper extremity more than a cell phone. She should work on elbow and wrist range of motion. I will see her back in 2 weeks with repeat x-rays, sooner if needed. Orders: Orders XR humerus RT Today S42.301A - Unspecified fracture of shaft of humerus, right arm, initial encounter for closed fracture Medications: New oxycodone Partial Fill upon patient request. 5 mg PO Q8H PRN 21 tabs 0RF pain 7 days S42.301A - Unspecified fracture of shaft of humerus, right arm, initial encounter for closed fracture Coding Level of Care Code Est Pt Level 3 (51780) Complex EM visit Add On G2211 Diagnoses Fracture of humeral shaft, right, closed S42.301A CPT Codes Fracture Care - Fracture Billing Code: Fracture Billing Code ([id number])
[2025-02-08 14:22] VITALS: BMI 35.9
--- OUTSIDE RECORDS SUMMARY | 2025-02-08 16:11 | XMS_ITS | Encounter Summary ---
Author Organization [employer] Address [address] [place] [address] Care Team Providers Care Chair Mechanic Name Role Phone Name, Leonardo LAYNE Primary Care Provider [phone] Reason for Visit * Reason Onset Date Comments may recalls 01/29/2025 Encounter Details Date Type Department Care Team (Late st Contact Info) Description 01/29/2025 Telephone [facility] [address] [place] [address] Gagandeep Barnes MA may recalls Social History Tobacco Use Types Packs/Day Years [...] AM EDT documented as of this encounter Miscellaneous Notes * Telephone Encounter - Gagandeep Barnes MA - 01/29/2025 4:23 PM EST Telephone call to patient to schedule a recall appointment. No answer, unable to leave voicemail (not set up).. Recall letter sent. Visit type: Follow up Appointment notes: HTN Month due: May With: Name Please schedule appointment above if patient returns call documented in this encounter Plan of Treatment Upcoming Encounters Date Type Department Care Team (Late st Contact Info) Description 02/25/2025 10:00 AM EDT Office Visit [facility] [address] [place] [address] Nany Stewart CNM [address] [place] [address] documented as of this encounter Visit Diagnoses Not on filedocumented in this encounter Additional Health Concerns Assessment Noted Time PHQ-9 Depression Total Score: 0 02/12/20 24 9:39 AM EDT documented as of this encounter Care Teams Chair Mechanic Relationship Specialty Start Date End Date Name, MD Leonardo [address] [place] [address] PCP - General Family Medicine 08/04/19 documented as of this encounter
--- OUTSIDE RECORDS SUMMARY | 2025-02-08 16:11 | XMS_ITS | Encounter Summary ---
Author Organization [employer] Address [address] [place] [address] Care Team Providers Care Photographers' Model Name Role Phone Name, Leonardo LAYNE Primary Care Provider [phone] Encounter Details Date Type Department Care Team (Late st Contact Info) Description 01/29/2025 Orders Only [facility] External Provider, [facility] Social History Tobacco Use Types Packs/Day Years [...] Description 02/25/2025 10:00 AM EDT Office Visit [facility] MEDICINE [address] [place] [address] Nany Stewart CNM [address] [place] [address] documented as of this encounter Procedures Procedure Name Priority Date/Time Associated Diagnosis Comments XR SHOULDER 1 VIEW RIGHT Routine 01/29/2025 6:36 PM EST XR HUMERUS RIGHT Routine 01/29/2025 5:42 PM EST documented in this encounter Results * XR Shoulder 1 View Right (01/29/2025 6:36 PM EST) Anatomical Region Laterality Modality Upper Extremities, Shoulder Right Radi ographic Imaging 01/29/2025 6:36 PM EST Narrative 01/29/2025 6:38 PM EST ? [facility] ?[address] ?[place] [address] ?XRay Report ? Signed ? Patient: Pamela,Amanda N ?MR#: [id number] ?? 10 ? : 1965 ?Acct:[id number] ? Age/Sex: 59 / F ?ADM Date: 03/07/25 ? Loc: HO.ED ? Attending Dr: ? Ordering Physician: Román Howard MD ?? Date of Service: 01/29/25 ?? Procedure(s): XR shoulder RT 1V ?? Accession Number(s): [id number] ? cc: Name,Leonardo LAYNE; Román Howard MD ? CLINICAL HISTORY: fall, shoulder pain, R ??O fracture, dislocations ? 3 views right shoulder ? Comparison: none. ? Findings: ?? No dislocations. ?? No significant arthritic change. The acromioclavicular joint is in good ?? alignment. ?? Visualized portions of scapula and right chest wall are unremarkable. ?? No radiopaque foreign body. ? Impression: ?? There is a jagged transverse fracture of the mid diaphysis of the humerus ?? with 12 mm displacement. ?? No acute skeletal abnormality of the right shoulder. ? This document has been electronically signed by: Awais Patiño MD on ?? 01/29/2025 18:36:36 ? Dictated By: ?Awais Patiño MD ? Signed By: ?<Electronically signed by Awais Patiño MD in OV> ?01/29/25 1837 ? DD/ 1836 ? TD/TT: 01/29/25 1836 ? Can Technician: ? Procedure Note Que Vincent - 01/29/2025 [place] [address] XRay Report Signed Patient: Amanda Santiago NMR#: [id number] 10 : 1965Acct:[id number] Age/Sex: 59 / FADM Date: 01/29/25 Loc: HO.ED Attending Dr: Ordering Physician: Román Howard MD Date of Service: 01/29/25 Procedure(s): XR shoulder RT 1V Accession Number(s): [id number] cc: Leonardo Gandhi MD; Román Howard MD CLINICAL HISTORY: fall, shoulder pain, R O fracture, dislocations 3 views right shoulder Comparison: none. Findings: No dislocations. No significant arthritic change. The acromioclavicular joint is in good alignment. Visualized portions of scapula and right chest wall are unremarkable. No radiopaque foreign body. Impression: There is a jagged transverse fracture of the mid diaphysis of the humerus with 12 mm displacement. No acute skeletal abnormality of the right shoulder. This document has been electronically signed by: Awais Patiño MD on 01/29/2025 18:36:36 Dictated By: Awais Patiño MD Signed By: <Electronically signed by Awais Patiño MD in OV> 01/29/251836 DD/ 35 TD/TT: 01/29/251835 Can Technician: [facility] External Provider IMG XR PROCEDURES Final Result * XR Humerus Right (01/29/2025 5:42 PM EST) Anatomical Region Laterality Modality Upper Extremities, Humerus Right Radio graphic Imaging 01/29/2025 5:42 PM EST Narrative 02/01/2025 8:15 AM EDT ? [facility] ?[address] ?[place] [address] ?XRay Report ? Signed ? Patient: Amanda Santiago N ?MR#: [id number] ?? 10 ? : 1965 ?Acct:[id number] ? Age/Sex: 59 / F ?ADM Date: 01/29/25 ? Loc: HO.ED ? Attending Dr: ? Ordering Physician: Román Howard MD ?? Date of Service: 01/29/25 ?? Procedure(s): XR humerus RT ?? Accession Number(s): [id number] ? cc: Name,Leonardo LAYNE; Román Howard MD ? EXAMINATION: ??XR HUMERUS RIGHT, XR SHOULDER 1 VIEW RIGHT ? HISTORY: Fall, right upper extremity, shoulder pain, R/O FX ? COMPARISON: There are no prior studies available for comparison. ? FINDINGS: ? Two views of the right shoulder and AP and lateral views of the right ?? humerus are submitted. ??Osseous mineralization is normal. ??There is a ?? transverse fracture of the midshaft of the humerus which is mildly ?? displaced and slightly angulated. ??The visualized shoulder and elbow ?? joint spaces are preserved. ??The soft tissues are unremarkable. ? XR/XR humerus RT ?? IMPRESSION: ? Transverse fracture of the midshaft of the humerus. ? Electronically signed by: ??Bill Kendrick MD ??02/01/2025 08:13 AM EDT ?? RP ? Dictated By: ?Bill Kendrick MD ? Signed By: ?<Electronically signed by Bill Kendrick MD in OV> ?02/01/25 0813 ? DD/ 1742 ? TD/TT: 01/29/25 1559 ? Can Technician: ? Procedure Note Donjanee, Que - 02/01/[address] [address] XRay Report Signed Patient: Amanda Santiago NMR#: [id number] 10 : 1965Acct:[id number] Age/Sex: 59 / FADM Date: 01/29/25 Loc: HO.ED Attending Dr: Ordering Physician: Román Howard MD Date of Service: 01/29/25 Procedure(s): XR humerus RT Accession Number(s): [id number] cc: Leonardo Gandhi MD; Román Howard MD EXAMINATION: XR HUMERUS RIGHT, XR SHOULDER 1 VIEW RIGHT HISTORY: Fall, right upper extremity, shoulder pain, R/O FX COMPARISON: There are no prior studies available for comparison. FINDINGS: Two views of the right shoulder and AP and lateral views of the right humerus are submitted. Osseous mineralization is normal. There is a transverse fracture of the midshaft of the humerus which is mildly displaced and slightly angulated. The visualized shoulder and elbow joint spaces are preserved. The soft tissues are unremarkable. XR/XR humerus RT IMPRESSION: Transverse fracture of the midshaft of the humerus. Electronically signed by: Bill Kendrick MD 02/01/2025 08:13 AM EDT Dictated By: Bill Kendrick MD Signed By: <Electronically signed by Bill Kendrick MD in OV> 02/01/25 0813 DD/ 1742 TD/TT: 01/29/25 1559 Can Technician: [facility] External Provider IMG XR PROCEDURES Edited Result - Final documented in this encounter Visit Diagnoses Not on filedocumented in this encounter Additional Health Concerns Assessment Noted Time PHQ-9 Depression Total Score: 0 02/12/20 24 9:39 AM EDT documented as of this encounter Care Teams Photographers' Model Relationship Specialty Start Date End Date Name, MD Leonardo [address] [place] [address] PCP - General Family Medicine 08/04/19 documented as of this encounter
--- OUTSIDE RECORDS SUMMARY | 2025-02-08 16:11 | XMS_ITS | Encounter Summary ---
Author Organization [employer] Address [address] [place] [address] Care Team Providers Care Citrix Systems Administrator Name Role Phone Name, Leonardo LAYNE Primary Care Provider [phone] Encounter Details Date Type Department Care Team (Late st Contact Info) Description 01/15/2025 Abstract [facility] MEDICINE [address] [place], [place] [phone] Name, MD Leonardo [address] [place] [address] Social History Tobacco Use Types Packs/Day Years [...] Description 02/25/2025 10:00 AM EDT Office Visit [facility] MEDICINE [address] [place], [place] [phone] Nany Stewart CNM [address] [place], [place] [phone] documented as of this encounter Procedures Procedure Name Priority Date/Time Associated Diagnosis Comments COLONOSCOPY Routine 07/07/2024 9:01 AM EDT documented in this encounter Results * (ABNORMAL) Hm Colonoscopy (07/07/2024 9:01 AM EDT) Colonoscopy Abnormal(A ) Normal 07/07/2024 9:01 AM EDT Leonardo Name HEALTH MAINTENANCE Final Result documented in this encounter Visit Diagnoses Not on filedocumented in this encounter Additional Health Concerns Assessment Noted Time PHQ-9 Depression Total Score: 0 02/12/20 24 9:39 AM EDT documented as of this encounter Care Teams [employer] Systems Administrator Relationship Specialty Start Date End Date Name, MD Leonardo [address] [place] [address] PCP - General Family Medicine 08/04/19 documented as of this encounter
--- OUTSIDE RECORDS SUMMARY | 2025-02-08 16:11 | XMS_ITS | Encounter Summary ---
Author Organization [employer] Address [address] [facility] 7[address] [place] [address] Care Team Providers Care Educational Therapy Teacher Name Role Phone Name, Leonardo LAYNE Primary Care Provider [phone] Encounter Details Date Type Department Care Team (Late Contact Info) Description 05/08/2023 Abstract [facility] MEDICINE [address] [place] [phone] Name, MD Leonardo [address] [place] [address] Social History Tobacco Use Types Packs/Day Years [...] Description 02/25/2025 10:00 AM EDT Office Visit [facility] MEDICINE [address] [place] [phone] Nany Stewart CNM [address] [place], [place] [phone] documented as of this encounter Visit Diagnoses Not on filedocumented in this encounter Care Teams Educational Therapy Teacher Relationship Specialty Start Date End Date Name, MD Leonardo [address] [place] [address] PCP - General Family Medicine 08/04/19 documented as of this encounter
--- OUTSIDE RECORDS SUMMARY | 2025-02-08 16:11 | XMS_ITS | Encounter Summary ---
Author Organization [employer] Address [address] [address] [facility] [place] [address] Care Team Providers Care Hand Hose Cutter Name Role Phone Name, Leonardo LAYNE Primary Care Provider [phone] Reason for Visit * Reason Onset Date Comments may recalls 01/29/2025 Encounter Details Date Type Department Care Team (Late st Contact Info) Description 01/29/2025 Telephone [facility] MEDICINE [address] [place] [address] Gagandeep Barnes MA may recalls Social History [...] Encounter - Gagandeep Barnes MA - 01/29/2025 2:08 PM EST Telephone call to patient to schedule a recall appointment. No answer, unable to leave voicemail (not set up).. Recall letter sent. Visit type: Physical Appointment notes: HTN Month due: March With: Name Please schedule appointment above if patient returns call documented in this encounter Plan of Treatment Upcoming Encounters Date Type Department Care Team (Late st Contact Info) Description 02/25/2025 10:00 AM EDT Office Visit [facility] MEDICINE [address] [place] [address] Nany Stewart CNM [address] [place] [address] documented as of this encounter Visit Diagnoses Not on filedocumented in this encounter Additional Health Concerns Assessment Noted Time PHQ-9 Depression Total Score: 0 02/12/20 24 9:39 AM EDT documented as of this encounter Care Teams Hand Hose Cutter Relationship Specialty Start Date End Date Name, MD Leonardo [address] [place] [address] PCP - General Family Medicine 08/04/19 documented as of this encounter
--- OUTSIDE RECORDS SUMMARY | 2025-02-08 16:11 | XMS_ITS | Encounter Summary ---
Author Organization [employer] Address [address] [facility] [address] [place] [address] Care Team Providers Care Veneer Slicing Machine Operator Name Role Phone Name, Leonardo LAYNE Primary Care Provider [phone] Reason for Visit * Reason Comments Follow-up Encounter Details Date Type Department Care Team ([facility] Contact Info) Description 01/12/2025 11:30 AM EST Office Visit [facility] MEDICINE [address] [place], [place] [phone] Name, MD Leonardo [address] [place] [address] Hypertension, unspecified type (Primary Dx); Impaired fasting glucose; Screening for cholesterol level; Chronic pain of right knee Social History Tobacco Use Types Packs/Day Years [...] AM EDT documented as of this encounter Last Filed Vital Signs Vital Sign Reading Time Taken Comments Blood Pressure 131/78 01/12/2025 11:27 AM EST Pulse 103 01/12/2025 11:27 AM EST Temperature 36.2 ??C (97.2 ??F) 01/12/2025 11:[address] Respiratory Rate 21 01/12/2025 11:27 AM EST Oxygen Saturation 98% 01/12/2025 11:27 AM EST Inhaled Oxygen Concentration - - Weight 105 kg (231 lb 6.4 oz) 01/12/2025 11:27 A M EST Height 160 cm (5' 3 ) 01/12/2025 11:27 AM EST Body Mass Index 40.99 01/12/2025 11:27 AM EST documented in this encounter Progress Notes * Leonardo Gandhi MD - 01/12/2025 11:30 AM EST Subjective Patient ID: Amanda Santiago is a 59 y.o. female who presents for Follow-up. Patient comes for a follow-up visit. BP is well-controlled. We discussed favorable results of recent EGD and colonoscopy that were negative for malignancy. The patient had adenoma removed in her colonoscopy and will need repeat in 2026. She also had duodenal adenoma and gastric polyps removed in her EGD and will need repeat EGD next year. She is also up-to-date also with her Pap smear and mammogram. She agreed to have a flu vaccination today. I suggested she start masking in crowded places. She asked for a refill for the Voltaren she uses for chronic knee pain. I recommend that she can also use Tylenol. She avoids the use of NSAIDs because of GI side effects. Her knee pain is present onand off since femoral fracture requiring ORIF back in 2020 Review of Systems Constitutional: Negative for chills and fever. HENT: Negative for sore throat. Respiratory: Negative for cough, shortness of breath and wheezing. Cardiovascular: Negative for chest pain, palpitations and leg swelling. Gastrointestinal: Negative for abdominal pain. Musculoskeletal: See HPI Visit Vitals BP 131/78 (BP Location: Left arm, Patient Position: Sitting, BP Cuff Size: Large adult) Pulse 103 Temp 97.2 ??F (36.2 ??C) (Temporal) Resp 21 Ht 5' 3 (1.6 m) Wt 231 lb 6.4 oz (105 kg) SpO2 98% BMI 40.99 kg/m?? OB Status Postmenopausal Smoking Status Never BSA 2.16 m?? Objective Physical Exam Constitutional: Appearance: Normal appearance. She is obese. Cardiovascular: Rate and Rhythm: Normal rate and regular rhythm. Heart sounds: No murmur heard. No gallop. Pulmonary: Effort: Pulmonary effort is normal. No respiratory distress. Breath sounds: Normal breath sounds. No wheezing. Musculoskeletal: Right lower leg: No edema. Left lower leg: No edema. Neurological: Mental Status: She is alert. Assessment/Plan Diagnoses and all orders for this visit: Hypertension, unspecified type Comments: Continue current meds and recheck fasting blood work. Orders: - CBC auto differential; Future - Comprehensive Metabolic Panel; Future - Lipid Panel, Standard; Future - Diclofenac Sodium 1 % gel; APPLY 4 GRAMS TO affected KNEE EVERY DAY Impaired fasting glucose Comments: See above Orders: - Diclofenac Sodium 1 % gel; APPLY 4 GRAMS TO affected KNEE EVERY DAY Screening for cholesterol level Comments: Recheck fasting lipids Orders: - Diclofenac Sodium 1 % gel; APPLY 4 GRAMS TO affected KNEE EVERY DAY Chronic pain of right knee Comments: Pains is not severe and has persisted after a fracture, I prescribed her Voltaren gel to use as needed. I recommended as needed acetaminophen as well. Orders: - Diclofenac Sodium 1 % gel; APPLY 4 GRAMS TO affected KNEE EVERY DAY Other orders - Flu vaccine greater than or equal to 6 months old, preservative free IM - acetaminophen (Tylenol Extra Strength) 500 MG tablet; Take 1 tablet (500 mg) by mouth every 8 (eight) hours if needed for moderate pain. documented in this encounter Plan of Treatment Upcoming Encounters Date Type Department Care Team (Late st Contact Info) Description 02/25/2025 10:00 AM EDT Office Visit [facility] MEDICINE [address] [place], [place] [phone] Nany Stewart CNM [address] [place], [place] [phone] Scheduled Orders Name Type Priority Associated Diagnoses Orde r Schedule CBC auto differential Lab Routine Hypertension, unspecified type Expected: 01/12/2025 (Approximate), Expires: 01/12/2026 Comprehensive Metabolic Panel Lab Routine Hypertension, unspecified type Expected: 01/12/2025 (Approximate), Expires: 01/12/2026 Lipid Panel, Standard Lab Routine Hypertension, unspecified type Expected: 01/12/2025 (Approximate), Expires: 01/12/2026 documented as of this encounter Visit Diagnoses Diagnosis Hypertension, unspecified type- Primary Impaired fasting glucose Screening for cholesterol level Chronic pain of right knee documented in this encounter Additional Health Concerns Assessment Noted Time PHQ-9 Depression Total Score: 0 02/12/20 24 9:39 AM EDT documented as of this encounter Care Teams Veneer Slicing Machine Operator Relationship Specialty Start Date End Date Oksana, MD Leonardo [address] [place] [phone] PCP - General Family Medicine 08/04/19 documented as of this encounter
--- OUTSIDE RECORDS SUMMARY | 2025-02-08 16:11 | XMS_ITS | Clinical Summary ---
Author Organization [employer] Address [address] [facility] [address] [place] [address] Care Team Providers Care Cager Operator Name Role Phone Name, Leonardo LAYNE Primary Care Provider [phone] Allergies Active Allergy Reactions Criticality Noted Date Comments Ibuprofen 12/29/2024 Other Reaction(s): kidney problems Medications cholecalciferol (Vitamin D-3) 25 MCG (1000 UT) tablet Take 1,000 Units by mouth in the morning. Active lisinopril-hydr oCHLOROthiazide 20-12.5 MG tabletIndicatio ns:Hypertension , unspecified type TAKE 1 TABLET BY MOUTH DAILY IN THE MORNING 90 tablet 3 07/29/20 24 Active amLODIPine (Norvasc) 10 MG tabletIndicatio ns:Hypertension , unspecified type TAKE 1 TABLET BY MOUTH DAILY IN THE MORNING 90 tablet 3 07/29/20 24 Active pantoprazole (ProtoNix) 40 MG EC tabletIndicatio ns:Hypertension , unspecified type,Impaired fasting glucose,Gastroe sophageal reflux disease, unspecified whether esophagitis present,Screeni ng for cholesterol level,Chronic pain of right knee TAKE 1 TABLET BY MOUTH EVERY DAY 90 tablet 10/21/20 24 Active Diclofenac Sodium 1 % gelIndications: Hypertension, unspecified type,Impaired fasting glucose,Screeni ng for cholesterol level,Chronic pain of right knee APPLY 4 GRAMS TO affected KNEE EVERY DAY 100 g 1 01/12/20 25 Active acetaminophen (Tylenol Extra Strength) 500 MG tablet Take 1 tablet (500 mg) by mouth every 8 (eight) hours if needed for moderate pain. 90 tablet 3 01/12/20 25 03/20/2 025 Active Diclofenac Sodium 1 % gelIndications: Hypertension, unspecified type,Impaired fasting glucose,Gastroe sophageal reflux disease, unspecified whether esophagitis present,Screeni ng for cholesterol level,Chronic pain of right knee APPLY 4 GRAMS TO affected KNEE EVERY DAY 100 g 1 08/20/20 23 025 Discontinued(Re order (will not trigger notification to Pharmacy)) Active Problems Problem Noted Date Diagnosed Date Tibial plateau fracture, right 01/12/2025 Right leg pain 01/12/2025 Osteopenia determined by x-ray 01/12/2025 Fracture of wrist 01/12/2025 Encounter for screening colonoscopy 01/12/2025 Overview (01/12/2025): 2014-inadequate prep Closed femur fracture 01/12/2025 Obesity 02/03/2016 GERD (gastroesophageal reflux disease) 3 Overview (01/12/2025): Reflux precautions Continue PPI Impaired fasting glucose 03/23/2013 Hypertension 03/23/2013 Encounters Date Type Department Care Team Description 01/29/2025 Orders Only [facility] External Provider, [facility] 01/29/[address] [address] Gagandeep Barnes MA may recalls 01/29/[address] [address] Gagandeep Barnes [place] march recalls 01/15/[address] [address] Leonardo Gandhi MD 01/12/2025 11:30 AM EST Office Visit [address] [address] Leonardo Gandhi MD Hypertension, unspecified type (Primary Dx); Impaired fasting glucose; Screening for cholesterol level; Chronic pain of right knee 12/25/2024 Travel 11/19/2024 Telephone [facility] [address] [place] [address] Gagandeep Barnes MA fe recalls from Last 3 Months Immunizations Name Administration Dates Next Due Hep B, adult 03/04/2012 Influenza Injectable Quadriv alant Preservative Free IIV4 MDCK 10/06/2020 Influenza injectable quadriv alent IIV4 with preservative 08/10/2019,10/03/2017 Influenza injectable quadrivalent preservative f ree 10/30/2021 Influenza, IIV3, injectable 11/11/2014 Influenza, seasonal, injectable, preservative fr ee 01/12/2025 Moderna Covid-19 Vaccine 6+ Bivalent 01/28/2023 Pfizer [...] Mass Index 40.99 01/12/2025 11:27 AM EST Plan of Treatment Upcoming Encounters Date Type Department Care Team (Late st Contact Info) Description 02/25/2025 10:00 AM EDT Office Visit [facility] [address] [place] [address] Ryley Oseguera, JOHN [address] [place] [address] Health Maintenance Due Date Last Done Comments CT Colonography 1965 FIT DNA/Cologuard 1965 FIT 1965 FOBT 1965 HIV Screening 1965 Sigmoidoscopy 1965 Hepatitis B Vaccines (2 of 3 - 19+ 3-dose series) 04/01/2012 03/04/2012 Pneumococcal Vaccine: 50+ Years (1 of 1 - PCV) 2013 COVID-19 Vaccine ( season) 2024 11/28/2023, 01/28/2023, 07/18/2022, Additional history exists Depression Screening 02/11/2025 02/12/2024, 02/12/20 SDOH Screening 02/11/2025 02/12/2024 Alcohol/Substance Use Screening 06/05/2025 06/05/2024 Tobacco Screening 01/12/2026 01/12/2025 Mammogram 03/18/2026 03/18/2024, 01/24, 08/27/2019 Pap Smear 02/25/2027 02/26/2024 Colonoscopy 07/07/2027 07/07/2024 Colorectal Cancer Screening 07/07/2027 Lipid Panel 02/11/2029 02/12/2024, 08/0 06/2023, 01/18/2022 Cervical Cancer Screening 02/25/2029 HPV/Cotest 02/25/2029 02/26/2024 DTaP/Tdap/Td Vaccines (3 - Td or Tdap) 07/10/2031 07/10/2021, 03/04/2012 RSV Patients and Patients Aged 60 years or older Completed 01/29/2024 Zoster Vaccines Completed 01/29/2024, 11/28/2023 Hepatitis C Screening Completed 02/12/2024 Influenza Vaccine Completed 01/12/2025, , 10/06/2020, Additional history exists HIB Vaccines Aged Out No longer eligi [...] HUMERUS RIGHT Routine 01/29/2025 5:42 PM EST HEMATOXYLIN AND EOSIN STAIN Routine 12/29/2024 8:12 AM EST Screen for colon cancer HM COLONOSCOPY Routine 07/07/2024 9:01 AM EDT BI MAMMOGRAM SCREENING TOMOSYNTHESIS BILATERAL Urgent 03/18/2024 [...] Recently Relevant to Health Maintenance Results * XR Shoulder 1 View Right (01/29/2025 6:36 PM EST) Anatomical Region Laterality Modality Upper Extremities, Shoulder Right Radi ographic Imaging 01/29/2025 6:36 PM EST Narrative 01/29/2025 6:38 PM EST ? [facility] ?[address] ?[place] [address] ?XRay Report ? Signed ? Patient: Amanda Santiago N ?MR#: [id number] ?? 10 ? : 1965 ?Acct:[id number] ? Age/Sex: 59 / F ?ADM Date: 01/29/25 ? Loc: HO.ED ? Attending Dr: ? Ordering Physician: Román Howard MD ?? Date of Service: 01/29/25 ?? Procedure(s): XR shoulder RT 1V ?? Accession Number(s): [id number] ? cc: Oksana,Leonardo LAYNE; Román Howard MD ? CLINICAL HISTORY: [...] signed by Awais Patiño MD in OV> ?01/29/251836 ? DD/ 35 ? TD/TT: 01/29/251835 ? Paint Spray Inspector: ? Procedure Note Donjnsamariasoleter, Image - 01/29/2025 [place] [address] XRay Report Signed Patient: Amanda Santiago NMR#: [id number] 10 : 1965Acct:[id number] Age/Sex: 59 / FADM Date: 01/29/25 Loc: HO.ED Attending Dr: Ordering Physician: Román Howard MD Date of Service: 01/29/25 Procedure(s): XR shoulder RT 1V Accession Number(s): [id number] cc: Leonardo Gandhi MD; Román Howard MD [...] in OV> 01/29/251836 DD/ 35 TD/TT: 01/29/251835 Paint Spray Inspector: us [facility] External Provider IMG XR PROCEDURES Final Result * XR Humerus Right (01/29/2025 5:42 PM EST) Anatomical Region Laterality Modality Upper Extremities, Humerus Right Radio graphic Imaging 01/29/2025 5:42 PM EST Narrative 02/01/2025 8:15 AM EDT ? [facility] ?[address] ?[place] [address] ?XRay Report ? Signed ? Patient: Pamela,Amanda N ?MR#: [id number] ?? 10 ? : 1965 ?Acct:[id number] ? Age/Sex: 59 / F ?ADM Date: 01/29/25 ? Loc: HO.ED ? Attending Dr: ? Ordering Physician: Román Howard MD ?? Date of Service: 01/29/25 ?? Procedure(s): XR humerus RT ?? Accession Number(s): [id number] ? cc: Name,Leonardo LAYNE; Román Howard MD [...] DD/ 1742 ? TD/TT: 01/29/25 1559 ? Paint Spray Inspector: ? Procedure Note Melisa, Que - 02/01/[address] [address] XRay Report Signed Patient: Amanda Santiago NMR#: [id number] 10 : 1965Acct:[id number] Age/Sex: 59 / FADM Date: 01/29/25 Loc: HO.ED Attending Dr: Ordering Physician: Román Howard MD Date of Service: 01/29/25 Procedure(s): XR humerus RT Accession Number(s): [id number] cc: Name,Leonardo LAYNE; Román Howard MD EXAMINATION: XR HUMERUS RIGHT, [...] 02/01/25 0813 DD/ 1742 TD/TT: 01/29/25 1559 Paint Spray Inspector: [facility] External Provider IMG XR PROCEDURES Edited Result - Final * Hematoxylin and Eosin Stain (12/29/2024 8:12 AM EST) 12/29/2024 8:12 AM EST 12/29/2024 8:53 AM EST [facility] - 12/31/2024 1:19 PM EST ----- ------- Name: Amanda Santiago Jonathan ? Age/Sex: 59/F ? : 1965 Unit#: [id number] ?? Attend Dr: Dora Rodriguez MD ?Re12/29/24 ?Status: DEP SDC ? Location: HO.SSS ?Disch: ? ----- ------- SPEC : [id number] ?RECD: 12/29/24 ? STATUS: ??SOUT ? REQ NUM: [id number] ? JOSSELINE: 12/29/24 ? SUBM DR: Dora Rodriguez MD ? ENTERED: ??12/29/24 ?SP TYPE: Surgical ? OTHR DR: Leonardo Gandhi MD ? ORDERED: ??HE Stain/3, Gross Micro L4, IHC, Special st. 2, H. pylori, AB/PAS ? Diagnosis ?? Gastric polyps: ??Fundic gland polyps, gastric body mucosa with features suggesting proton ?? pump inhibitor effect and minimal chronic inactive inflammation, and fragment of ?? superficial gastric mucosa; negative for H. pylori, intestinal metaplasia and dysplasia. ?Clinical History Pre-Op Dx: ??Hx of gastric polyps Post-Op Dx: Gastric polyps ?Microscopic Description Microscopic sections reviewed. ??Immunostain for H. pylori is negative.? AB/PAS is negative for intestinal metaplasia.? Controls stain appropriately. ? Material Received ?? Gastric polyps ? Gross Description Received in formalin labeled ?gastric polyps? are several song and song- pink irregular and papular tissue fragments ranging from 0.2 to 0.7 cm in greatest dimension, submitted in toto in a cassette labeled A. CEDS Special studies ordered and performed: Immunostain for H. pylori on A1; AB/PAS stains on A1. Copies To: ?? Name,Leonardo LAYNE ?? [address] [facility] ?? [place] [address] ?? [phone] ?? Dora Rodriguez MD ?? [facility] ?? [address] ?? [place] [address] ?? [phone] ?? [email or web address] ? CONTINUED ON NEXT PAGE ----- ------- Name: Amanda Santiago ? Age/Sex: 59/F ? : 1965 Unit#: [id number] ?? Attend Dr: Dora Rodriguez MD ?Re12/29/24 ?Status: DEP SDC ? Location: HO.SSS ?Disch: ? ----- ------- SPEC : [id number] ?RECD: 12/29/24 ? STATUS: ??SOUT ? REQ NUM: [id number] ? JOSSELINE: 12/29/24 ? SUBM DR: Dora Rodriguez MD ? ENTERED: ??12/29/24 ?SP TYPE: Surgical ? OTHR : Leonardo Gandhi MD ? ORDERED: ??HE Stain/3, Gross Micro L4, IHC, Special st. 2, H. pylori, AB/PAS ? ----- ------- Signed (signature on file) Georgia Gallagher 12/31/24 1319 ? ----- ------- ? END OF REPORT ? us Generic External Data Provider LAB BLOOD ORDERAB LES Final Result [facility] [address] [place] [phone] * (ABNORMAL) Hm Colonoscopy (07/07/2024 9:01 AM EDT) Colonoscopy Abnormal(A ) Normal 07/07/2024 9:01 AM EDT Leonardo Gandhi MD HEALTH MAINTENANCE Final Result * BI Mammogram Screening Tomosynthesis Bilateral (03/18/2024 11:51 AM EDT) Anatomical Region Laterality Modality Breast Bilateral Mammography 03/18/2024 11:5 1 AM EDT Narrative 03/23/2024 10:04 AM EDT ? [facility] ? [address] ?[place] [address] ? Mammography Report ? Signed ? Patient: Pamela,Amanda N ?MR#: [id number] ?? 10 ? : 1965 ?Acct:[id number] ? Age/Sex: 58 / F ?ADM Date: 04/24/24 ? Loc: HO.MAMMO ? Attending Dr: Ryley LOPEZM ? Ordering Physician: RYLEY OSEGUERA CNM ?Results: 1 ?? Negative ? Date of Service: 03/18/24 ?Follow Up: 1 Year From Orig ?? inal Mammogram ? Procedure(s): MM tomosynthesis screening BI ?? Accession Number(s): [id number] ? cc: Name,Leonardo LAYNE; RYLEY OSEGUERA CNM ? EXAMINATION: ?? MM SCREENING DIGITAL BREAST TOMOSYNTHESIS, BILATERAL ? CLINICAL INFORMATION: ? Screening. Asymptomatic. ? COMPARISON: ?? Mammography: This study is compared with prior exams dating back to ?? 2019. ? TECHNIQUE: ?? Digital breast tomosynthesis is [...] 1000 ? DD/ 1151 ? TD/TT: ? Paint Spray Inspector: ? Procedure Note Donlingter, Image - 03/23/2024 [place] [facility] [address] [place] [address] Mammography Report Signed Patient: Amanda Santiago NMR#: [id number] 10 : 1965Acct:[id number] Age/Sex: 58 / FADM Date: 03/18/24 Loc: HO.MAMMO Attending Dr: Ryley Oseguera CNM Ordering Physician: RYLEY OSEGUERAesults: 1 Negative Date of Service: 03/18/24Follow Up: 1 Year From Orig inal Mammogram Procedure(s): MM tomosynthesis screening BI Accession Number(s): [id number] cc: Leonardo Gandhi MD; RYLEY OSEGUERA CNM [...] in OV> 03/23/24 1000 DD/ 1151 TD/TT: Paint Spray Inspector: Ryley Oseguera CNM IMG BI PROCEDURES Edited Result - Final * HPV mRNA E6/E7 w/Reflex to HPV Genotypes 16, 18/45 (02/26/2024 9:27 AM EDT) HPV nRNA E6/E7 Not Detected Not Detected [facility] Comment:Methodology: Transcr iption-Mediated AmplificationThis assay detects E6/E7 viral messenger RNA (mRNA) from 14high-risk HPV types (16,18,31,33,35,39,45,51,52,56,58,59,66,68).Cervical sources are required for HPV testing.If a vaginal source from a patient who has had atotal hysterectomy with removal of cervix wassubmitted, please contact the testing laboratoryfor alternative testing options.For additional information, please refer tohttp://[email or web address]/faq/KIU304d7(This link if provided for information/educational purposes only.)THIS TEST WAS PERFORMED AT:[email or web address] [place] [id number] BRAVO MD HPV mRNA E6/E7 [facility] HPV 16 RNA [facility] HPV 18/45 RNA [facility] 02/26/2024 9:27 AM EDT 02/27/2024 6:30 AM EDT Ryley Oseguera CNM LAB CYTOLOGY ORDERABLES F inal Result [facility] [address] [place] [address] [phone] * Pap Smear (02/26/2024 9:27 AM EDT) Swab Cervix uteri structure / Unknown 02/26/2024 9:27 AM EDT 02/27/2024 6:30 AM EDT Narrative [facility] - 03/14/2024 4:22 PM EDT ----- ------- Name: Amanda Santiago Jonathan ? Age/Sex: 58/F ? : 1965 Unit#: [id number] ?? Attend Dr: RYLEY OSEGUERA CNM ?Re02/26/24 ?Status: DEP REF ? Location: HO.LNP ?Disch: ? ----- ------- SPEC : [id number] ? RECD: 02/27/24-629 ? STATUS: ??SOUT ? REQ NUM: [id number] ? JOSSELINE: 02/26/24-926 ? SUBM DR: RYLEY OSEGUERA CNM ? [...] 66, 68) ? HPV testing performed by Dash, [place], [place]. ??See reference laboratory ?? portion of the EMR for entire report. ?Clinical Information LMP: Postmenopausal Previous PAP test: Unknown date/findings ? Material Received ?? ThinPrep-Cervical ----- ------- Signed (signature on file) Roxie Dasilva Alfred 03/14/241621 ? ----- ------- ? END OF REPORT ? Ryley LOPEZ LAB CYTOLOGY ORDERABLES F inal Result Performing Organization Address [facility] de Phone Number [facility] [address] [place] [address] [phone] * Hepatitis C Ab (02/12/2024 10:43 AM EDT) [facility] Hepatitis C Antibody Nonreactive Nonreactive [facility] Comment:Antibodies to HCV no t detected; does not exclude early acuteHCV infection. Blood Venous blood specimen / Unknown 02/12/2024 10:43 AM EDT 02/12/2024 11:20 AM EDT Leonardo Gandhi MD LAB BLOOD ORDERABLES Final Resul t Performing Organization Address [facility] de Phone Number [facility] [address] [place] [phone] * (ABNORMAL) Lipid Panel, Standard (02/12/2024 10:43 AM EDT) Triglycerides 72 <150 mg/dL [facility] Comment:Desirable Triglyceri de: less than 150 mg/dLBorderline High Triglyceride 150-199 mg/dLHigh Triglyceride: 200-499 mg/dLVery High Triglyceride: greater than or equal to 5OO mg/dL Cholesterol 184 <200 mg/dL [facility] Comment:Desirable Cholestero l: less than 200 mg/dLBorderline High Cholesterol: 200-239 mg/dLHigh Cholesterol: greater than 239 mg/dL LDL Cholesterol Calculated 109(H) <100 mg/dL [facility] Comment:Desirable LDL: less than 100 mg/dLNear Optimal/Above Optimal LDL: 110- 129 mg/dLBorderline High LDL: 130-159 mg/dLHigh LDL: 160-189 mg/dLVery High LDL: greater than or equal to 190 mg/dL HDL Cholesterol 61 >40 mg/dL [facility] Comment:Desirable HDL: great er than 40 mg/dL Note: This HDL assay may give artificially low results in patients with liver disease. Blood Venous blood specimen / Unknown 02/12/2024 10:43 AM EDT 02/12/2024 11:20 AM EDT us Leonardo Name LAB BLOOD ORDERABLES Final Resul t [facility] [address] [place] [address] [phone] from Last 3 Months or Most Recently Relevant to Health Maintenance Insurance [facility] Care Teams Cager Operator Relationship Specialty Start Date End Date Name, MD Leonardo [address] [facility] [place] [address] PCP - General Family Medicine 08/04/19
--- OUTSIDE RECORDS SUMMARY | 2025-02-08 16:11 | XMS_ITS | Encounter Summary ---
Author Organization [employer] Address [address] [place] [address] [address] [place] [address] Care Team Providers Care Field Captain Name Role Phone Name, Leonardo LAYNE Primary Care Provider [phone] Encounter Details Date Type Department Care Team ([facility] Contact Info) Description 11/22/2022 Telephone [facility] [address] [place] [phone] Name, MD Leonardo [address] [place] [phone] Social History Tobacco Use Types Packs/Day Years [...] Department Care Team (Late Contact Info) Description 02/25/2025 10:00 AM EDT Office Visit [facility] [address] [place] [phone] Nany Stewart CNM [address] [place] [address] documented as of this encounter Visit Diagnoses Not on filedocumented in this encounter Care Teams Field Captain Relationship Specialty Start Date End Date Name, MD Leonardo [address] [place] [phone] PCP - General Family Medicine 08/04/19 documented as of this encounter
== END 2025-02-08 14:42 | disposition home or self-care (01) ==
LOC: HO.HOS 13:52
PROVIDERS: PCP Internal Medicine Geriatric Medicine; Visit Provider Physician Assistant
DX: S42.301A Unspecified fracture of shaft of humerus, right arm, initial encounter for closed fracture (principal); W10.8XXA Fall (on) (from) other stairs and steps, initial encounter
CPT/HCPCS: 99213; G2211

== ENCOUNTER → 2025-02-08 13:55 | Outpatient (BNV) | payer OTHER, SELFPAY | PROVIDERS: Visit Provider Radiology Diagnostic Radiology | DX: S42.301A Unspecified fracture of shaft of humerus, right arm, initial encounter for closed fracture (principal) | CPT/HCPCS: 73060 ==

== ENCOUNTER 2025-02-10 13:36 | Outpatient (AMB) | payer OTHER, SELFPAY ==
--- NOTE | 2025-02-10 13:43 | MHC.OFFVIS ---
Vital Signs 02/10/25 13:51 Height 5 ft 7 in Weight 229 lb BMI 35.9 Intake Visit Reasons: OV- Right hum shaft fx DOI 01/29/25, adjustbrace Intake Note: Amanda is a 59 year old right hand dominant female who presents today for a humeral brace adjustment s/p fall DOI: 01/29/25. Patient reports that her brace became loose and is falling down her arm. Allergies ibuprofen Allergy (Unknown, Verified 02/10/25 13:50) kidney problems Medication List - Last Reconciled 02/10/25 by Bryon Stroud PA-C acetaminophen ER 650 mg PO TID [Adult Diaper As directed] amlodipine 10 mg PO DAILY lisinopril-hydrochlorothiazide 20-12.5 mg 1 tab PO DAILY ondansetron HCl 4 mg PO Q8H PRN oxycodone 5 mg PO Q8H PRN 7 days pantoprazole 1 tab PO DAILY HPI HPI OV- Right hum shaft fx DOI 01/29/25, adjustbrace: Details: Patient presents today for adjustment of her brace. She states her swelling is subsiding therefore the brace is becoming loose. [facility] Medical History Kidney stones GERD (gastroesophageal reflux disease) HTN (hypertension) Surgical History Hx of cystoscopy History of esophagogastroduodenoscopy (EGD) Hx of colonoscopy History of surgery on right wrist History of surgery H/O left wrist surgery Status post total hip replacement, right Family History Mother Cancer Father Diabetes mellitus, type II Brother Diabetes Social History Household Members: Family Household Members Other:: youngest brother, oldest granson, daughter (duplex) Housing: House Do you presently have visiting nurse or other home services: No Alcohol intake: current Alcohol intake frequency: does not drink Patient Tobacco Use Status: Never used Tobacco service: No Current occupational status: disabled Current occupation: rt handed Physical Exam Vital Signs: BMI result Body Mass Index 35.9 Assessment & Plan Assessment & Plan (1) Fracture of humeral shaft, right, closed: Code(s): S42.301A - Unspecified fracture of shaft of humerus, right arm, initial encounter for closed fracture Category: Medical Plan: Brace readjusted well today with comfort. No concerns today. She will follow up at her routine appointment. Coding Level of Care Code Global (56971) Diagnoses Fracture of humeral shaft, right, closed S42.301A
[2025-02-10 13:51] VITALS: BMI 35.9
== END 2025-02-10 14:00 | disposition home or self-care (01) ==
LOC: HO.HOS 13:36
PROVIDERS: Visit Provider Physician Assistant
DX: S42.301A Unspecified fracture of shaft of humerus, right arm, initial encounter for closed fracture (principal)
CPT/HCPCS: 99212

== ENCOUNTER → 2025-02-10 13:36 | Outpatient (BNVA) | payer OTHER, SELFPAY | PROVIDERS: Visit Provider Physician Assistant | DX: S42.301D Unspecified fracture of shaft of humerus, right arm, subsequent encounter for fracture with routine healing (principal) | CPT/HCPCS: 99212 ==

== ENCOUNTER 2025-02-24 08:48 | Outpatient (REF) | payer OTHER, SELFPAY ==
--- NOTE | ~2025-02-24 | XR_ITS ---
EXAMINATION: XR HUMERUS, RIGHT CLINICAL INFORMATION: S42.301A - Unspecified fracture of shaft of humerus, right arm, initial ... COMPARISON: 02/08/2025, 01/29/2025. TECHNIQUE: AP and lateral views of the right humerus. FINDINGS: Redemonstration of a mid diaphyseal slightly oblique displaced fracture, with stable anterior displacement and stable mild varus angulation. No change in the overall alignment. There is notable blunting of the fracture margins, and abundant periosteal new bone formation/callus surrounding the fracture site indicating healing. Soft tissues are unremarkable. XR/XR humerus RT IMPRESSION: Healing mildly displaced mildly angulated fracture of the mid right humerus. Stable alignment. Electronically signed by: Lauri Kim MD 02/25/2025 10:20 AM EDT
--- OUTSIDE RECORDS SUMMARY | 2025-02-24 09:23 | XMS_ITS | Clinical Summary ---
Author Organization [employer] Address [address] [facility] 7t [place] [address] Care Team Providers Care Accounts Payable Administrator Name Role Phone Name, Leonardo LAYNE Primary Care Provider [phone] Allergies Active Allergy Reactions Criticality Noted Date Comments Ibuprofen 12/29/2024 Other Reaction(s): kidney problems Medications cholecalciferol (Vitamin D-3) 25 MCG (1000 UT) tablet Take 1,000 Units by mouth in the morning. Active lisinopril-hydro CHLOROthiazide 20-12.5 MG tabletIndication s:Hypertension, [...] MOUTH EVERY DAY 90 tablet 4 Active Diclofenac Sodium 1 % gelIndications:H ypertension, unspecified type,Impaired fasting glucose,Screenin g for cholesterol level,Chronic pain of right knee APPLY 4 GRAMS TO affected KNEE EVERY DAY 100 g 1 5 Active acetaminophen (Tylenol Extra Strength) 500 MG tablet Take 1 tablet (500 mg) by mouth every 8 (eight) hours if needed for moderate pain. 90 tablet 3 5 02/12/20 25 Active Problems Problem Noted Date Diagnosed Date [...] Department Care Team Description 01/29/2025 Orders Only [facility] External Provider, [facility] 01/29/[address] [facility] [address] [place] [address] Gagandeep Barnes [place] may recalls 01/29/2025 Telephone [facility] [address] [place] [address] Gagandeep Barnes [place] may recalls 01/15/2025 Abstract [facility] [address] [place] [address] NameLeonardo MD 01/12/2025 11:30 AM EST Office Visit [facility] [address] [place] [address] Name, MD Leonardo Hypertension, unspecified type (Primary Dx); Impaired fasting glucose; Screening for cholesterol level; Chronic pain of right knee 12/25/2024 Travel from Last 3 Months Immunizations Name Administration [...] 10:00 AM EDT Office Visit [facility] [address] [place], [place] [phone] Ryley Oseguera, CINDI [address] [place] [address] Health Maintenance Due Date Last Done Comments [...] Cancer Screening 07/07/2027 Lipid Panel 02/11/2029 02/12/2024, 08/06/2023, 01/18/2022 Cervical Cancer Screening 02/25/2029 HPV/Cotest 02/25/2029 [...] EST Narrative 01/29/2025 6:38 PM EST ? [facility] ?[address] ?[place] [address] ?XRay Report ? Signed ? Patient: Amanda Santiago N ?MR#: [id number] ?? 10 ? : 1965 ?Acct:[id number] ? Age/Sex: 59 / F ?ADM Date: 01/29/25 ? Loc: HO.ED ? Attending Dr: ? Ordering Physician: Román Howard MD ?? Date of Service: 01/29/25 ?? Procedure(s): XR shoulder RT 1V ?? Accession Number(s): [id number] ? cc: Name,Leonardo LAYNE; Román Howard MD [...] DD/ 1836 ? TD/TT: 01/29/25 1836 ? Financial Systems Administrator: ? Procedure Note Donotuseinterpreter, Image - 01/29/[address] [address] XRay Report Signed Patient: Amanda Santiago NMR#: [id number] 10 : 1965Acct:[id number] Age/Sex: 59 / FADM Date: 01/29/25 Loc: HO.ED Attending Dr: Ordering Physician: Román Howard MD Date of Service: 01/29/25 Procedure(s): XR shoulder RT 1V Accession Number(s): [id number] cc: Oksana,Leonardo LAYNE; Román Howard MD CLINICAL HISTORY: fall, shoulder [...] MD in OV> 01/29/251836 DD/ 35 TD/TT: 01/29/25 183 Financial Systems Administrator: [facility] External Provider IMG XR PROCEDURES Final Result * XR Humerus Right (01/29/2025 5:42 PM EST) Anatomical Region Laterality Modality Upper Extremities, Humerus Right Radio graphic Imaging 01/29/2025 5:42 PM EST Narrative 02/01/2025 8:15 AM EDT ? [place] [facility] ?[address] ?[place] [address] ?XRay Report ? Signed ? Patient: Pamela,Amanda N ?MR#: [id number] ?? 10 ? : 1965 ?Acct:[id number] ? Age/Sex: 59 / F ?ADM Date: 01/29/25 ? Loc: HO.ED ? Attending Dr: ? Ordering Physician: Román Howard MD ?? Date of Service: 01/29/25 ?? Procedure(s): XR humerus RT ?? Accession Number(s): [id number] ? cc: Name,Leonardo LAYNE; Román Howard MD [...] ??Bill Kendrick MD ??02/01/2025 08:13 AM EDT ? Dictated By: ?Bill Kendrick MD ? Signed By: ?<Electronically signed by Bill Kendrick MD in OV> ?02/01/25 0813 ? DD/ 1742 ? TD/TT: 01/29/25 1559 ? Financial Systems Administrator: ? Procedure Note Que Vincent - 02/01/[address] [address] XRay Report Signed Patient: Amanda Santiago [facility]#: [id number] 10 : 1965Acct:[id number] Age/Sex: 59 / FADM Date: 01/29/25 Loc: HO.ED Attending Dr: Ordering Physician: Román Howard MD Date of Service: 01/29/25 Procedure(s): XR humerus RT Accession Number(s): [id number] cc: Leonardo Gandhi MD; Román Howard MD [...] OV> 02/01/25 0813 DD/ 1742 TD/TT: 01/29/25 1558 Financial Systems Administrator: [facility] External Provider IMG XR PROCEDURES Edited Result - Final * Hematoxylin and Eosin Stain (12/29/2024 8:12 AM EST) 12/29/2024 8:12 AM EST 12/29/2024 8:53 AM EST [facility] - 12/31/2024 1:19 PM EST ----- ------- Name: Amanda Santiago ? Age/Sex: 59/F ? : 1965 Unit#: [id number] ?? Attend Dr: Dora Rodriguez MD ?Re12/29/24 ?Status: DEP SDC ? Location: HO.SSS ?Disch: ? ----- ------- SPEC : [id number] ?RECD: 12/29/24 ? STATUS: ??SOUT ? REQ NUM: [id number] ? JOSSELINE: 12/29/24 ? SUBM DR: Dora [...] Copies To: ?? Name,Leonardo LAYNE ?? [address] [facility] ?? [place] [address] ?? [phone] ?? Dora Rodriguez MD ?? [facility] ?? [address] ?? [place] [address] ?? [phone] ?? [email or web address] ? CONTINUED ON NEXT PAGE ----- ------- Name: PamelaAmanda Jonathan ? Age/Sex: 59/F ? : 1965 Unit#: [id number] ?? Attend Dr: Dora Rodriguez MD ?Re12/29/24 ?Status: DEP ILC ? Location: HO.SSS ?Disch: ? ----- ------- SPEC : [id number] ?RECD: 12/29/24 ? STATUS: ??SOUT ? REQ NUM: [id number] ? JOSSELINE: 12/29/24 ? SUBM DR: Dora Rodriguez MD ? ENTERED: ??12/29/24 ?SP TYPE: Surgical ? OTHR DR: Leonardo Gandhi MD ? ORDERED: ??HE Stain/3, Gross Micro L4, IHC, Special st. 2, H. pylori, AB/PAS ? ----- ------- Signed (signature on file) Georgia Gallagher 12/31/24 3319 ? ----- ------- ? END OF REPORT ? us Generic External Data Provider LAB BLOOD ORDERAB LES Final Result [facility] [address] [facility] [place] [address] [phone] * (ABNORMAL) Hm Colonoscopy (07/07/2024 9:01 AM EDT) Colonoscopy Abnormal(A ) Normal 07/07/2024 9:01 AM EDT us Leonardo Name HEALTH MAINTENANCE Final Result * BI Mammogram Screening Tomosynthesis Bilateral (03/18/2024 11:51 AM EDT) Anatomical Region Laterality Modality Breast Bilateral Mammography 03/18/2024 11:5 1 AM EDT Narrative 03/23/2024 10:04 AM EDT ? [facility] ? [address] ?[place] [address] ? Mammography Report ? Signed ? Patient: Pamela,Amanda N ?MR#: [id number] ?? 10 ? : 1965 ?Acct:[id number] ? Age/Sex: 58 / F ?ADM Date: 04/24/24 ? Loc: HO.MAMMO ? Attending Dr: Ryley Oseguera CNM ? Ordering Physician: RYLEY OSEGUERA CNM ?Results: 1 ?? Negative ? Date of Service: 03/18/24 ?Follow Up: 1 Year From Orig ?? inal Mammogram ? Procedure(s): MM tomosynthesis screening BI ?? Accession Number(s): [id number] ? cc: Oksana,Leonardo LAYNE; RYLEY OSEGUERA CNM ? EXAMINATION: ?? [...] 1000 ? DD/ 1151 ? TD/TT: ? Financial Systems Administrator: ? Procedure Note Melisa, Image - 03/23/2024 [facility] [address] [place], [place] [address] Mammography Report Signed Patient: Amanda Santiago NMR#: [id number] 10 : 1965Acct:[id number] Age/Sex: 58 / FADM Date: 03/18/24 Loc: HO.MAMMO Attending Dr: Ryley Oseguera CNM Ordering Physician: RYLEY OSEGUERAesults: 1 Negative Date of Service: 03/18/24Follow Up: 1 Year From Orig ina Mammogram Procedure(s): MM tomosynthesis screening BI Accession Number(s): [id number] cc: Oksana,Leonardo LAYNE; RYLEY OSEGUERA CNM EXAMINATION: MM SCREENING DIGITAL [...] in OV> 03/23/24 1000 DD/ 1151 TD/TT: Financial Systems Administrator: Ryley Oseguera CNM IMG BI PROCEDURES Edited Result - Final * HPV mRNA E6/E7 w/Reflex to HPV Genotypes 16, 18/45 (02/26/2024 9:27 AM EDT) HPV nRNA E6/E7 Not Detected Not Detected [facility] Comment:Methodology: Transcr iption-Mediated AmplificationThis assay detects E6/E7 viral messenger RNA (mRNA) from 14high-risk HPV types (16,18,31,33,35,39,45,51,52,56,58,59,66,68).Cervical sources are required for HPV testing.If a vaginal source from a patient who has had atotal hysterectomy with removal of cervix wassubmitted, please contact the testing laboratoryfor alternative testing options.For additional information, please refer [email or web address]/[email or web address](This link if provided for information/educational purposes only.)THIS TEST WAS PERFORMED AT:[facility] [place] [id number] BRAVO MD HPV mRNA E6/E7 TNP [facility] HPV 16 [facility] HPV 18/45 RNA [facility] 02/26/2024 9:27 AM EDT 02/27/2024 6:30 AM EDT us Ryley Oseguera [facility] CYTOLOGY ORDERABLES F inal Result [facility] [address] [place] [phone] * Pap Smear (02/26/2024 9:27 AM EDT) Swab Cervix uteri structure / Unknown 02/26/2024 9:27 AM EDT 02/27/2024 6:30 AM EDT Narrative [facility] - 03/14/2024 4:22 PM EDT ----- ------- Name: Amanda Santiago Jonathan ? Age/Sex: 58/F ? : 1965 Unit#: [id number] ?? Attend Dr: RYLEY OSEGUERA CNM ?Re02/26/24 ?Status: DEP REF ? Location: HO.LNP ?Disch: ? ----- ------- SPEC : [id number] ? RECD: 02/27/24 ? STATUS: ??SOUT ? REQ NUM: [id number] ? JOSSELINE: 02/26/24 ? SUBM DR: RYLEY OSEGUERA CNM ? ENTERED: ??02/27/24 ?SP TYPE: Pap Smr ?OTHR DR: ? ORDERED: ??Pap Smear ? Interpretation ?? Satisfactory for evaluation. ?? No endocervical cells seen. ?? Negative for intraepithelial lesion or malignancy. ? HPV mRNA E6/E7: ?NOT DETECTED ? This assay detects E6/E7 viral messenger RNA (mRNA) from 14 high-risk HPV types (16, 18, ?? 31, 33, 35, 39, 45, 51, 52, 56, 58, 59, 66, 68) ? HPV testing performed by [email or web address], [place], [place]. ??See reference laboratory ?? portion of the EMR for entire report. ?Clinical Information LMP: Postmenopausal Previous PAP test: Unknown date/findings ? Material Received ?? ThinPrep-Cervical ----- ------- Signed (signature on file) Roxie Dasilva Alfred 03/14/241621 ? ----- ------- ? END OF REPORT ? us Ryley Oseguera [facility] CYTOLOGY ORDERABLES F inal Result [facility] [address] [place] [address] [phone] * Hepatitis C Ab (02/12/2024 10:43 AM EDT) Hepatitis C Antibody Nonreactive Nonreactive [facility] Comment:Antibodies to HCV no t detected; does not exclude early acuteHCV infection. Blood Venous blood specimen / Unknown 02/12/2024 10:43 AM EDT 02/12/2024 11:20 AM EDT us Leonardo Name MD LAB BLOOD ORDERABLES Final Resul t Performing Organization Address [facility] Co de Phone Number [facility] [address] [place] [phone] * (ABNORMAL) Lipid Panel, Standard (02/12/2024 10:43 AM EDT) Pathologist [facility] Triglycerides 72 <150 mg/dL [facility] Comment:Desirable Triglyceri de: less than 150 mg/dLBorderline High Triglyceride 150-199 mg/dLHigh Triglyceride: 200-499 mg/dLVery High Triglyceride: greater than or equal to 5OO mg/dL Cholesterol 184 <200 mg/dL [facility] Comment:Desirable Cholestero l: less than 200 mg/dLBorderline High Cholesterol: 200-239 mg/dLHigh Cholesterol: greater than 239 mg/dL LDL Cholesterol Calculated 109(H) <100 mg/dL [facility] Comment:Desirable LDL: less than 100 mg/dLNear Optimal/Above Optimal LDL: 110- 129 mg/dLBorderline High LDL: 130-159 mg/dLHigh LDL: 160-189 mg/dLVery High LDL: greater than or equal to 190 mg/dL HDL Cholesterol 61 >40 mg/dL [facility] Comment:Desirable HDL: great er than 40 mg/dL Note: This HDL assay may give artificially low results in patients with liver disease. Blood Venous blood specimen / Unknown 02/12/2024 10:43 AM EDT 02/12/2024 11:20 AM EDT us Leonarod Name LAB BLOOD ORDERABLES Final Resul t [facility] [address] [place] [address] [phone] from Last 3 Months or Most Recently Relevant to Health Maintenance Insurance [facility] Care Teams Accounts Payable Administrator Relationship Specialty Start Date End Date Name, MD Leonardo [address] [place] [address] PCP - General Family Medicine 08/04/19
--- OUTSIDE RECORDS SUMMARY | 2025-02-24 09:23 | XMS_ITS | Encounter Summary ---
Author Organization [employer] Address [address] [place] [address] 7 [place] [address] Care Team Providers Care Weighmaster Name Role Phone Name, Leonardo LAYNE Primary Care Provider [phone] Encounter Details Date Type Department Care Team ([facility] Contact Info) Description 11/22/2022 Telephone [facility] [address] [place] [phone] Name, MD Leonardo [address] [place] [phone] Social History Tobacco Use Types Packs/Day Years [...] Description 02/25/2025 10:00 AM EDT Office Visit [facility] [address] [place] [phone] Nany Stewart CNM [address] [place] [address] documented as of this encounter Visit Diagnoses Not on filedocumented in this encounter Care Teams Weighmaster Relationship Specialty Start Date End Date Name, MD Leonardo [address] [place] [address] PCP - General Family Medicine 08/04/19 documented as of this encounter
--- OUTSIDE RECORDS SUMMARY | 2025-02-24 09:23 | XMS_ITS | Encounter Summary ---
Author Organization [employer] Address [address] [facility] 7t [place] [address] Care Team Providers Care Photo Finish Photographer Name Role Phone Name, Leonardo LAYNE Primary Care Provider [phone] Encounter Details Date Type Department Care Team (Late Contact Info) Description 05/08/2023 Abstract [facility] [address] [place] [address] [phone] Name, MD Leonardo [address] [place] [address] Social History Tobacco Use Types Packs/Day Years [...] Description 02/25/2025 10:00 AM EDT Office Visit [facility] [address] [place] [address] [phone] Nany Stewart CNM [address] [place], [place] [phone] documented as of this encounter Visit Diagnoses Not on filedocumented in this encounter Care Teams Photo Finish Photographer Relationship Specialty Start Date End Date Name, MD Leonardo [address] [place] [address] PCP - General Family Medicine 08/04/19 documented as of this encounter
== END 2025-02-24 08:49 | disposition home or self-care (01) ==
LOC: HO.HOSX 08:48
PROVIDERS: Visit Provider Physician Assistant
DX: S42.301D Unspecified fracture of shaft of humerus, right arm, subsequent encounter for fracture with routine healing (principal)
CPT/HCPCS: 73060; 99212

== ENCOUNTER 2025-02-24 13:58 | Outpatient (AMB) | payer OTHER, SELFPAY ==
--- NOTE | 2025-02-24 14:23 | MHC.OFFVIS ---
Vital Signs 02/24/25 14:25 Height 5 ft 7 in Weight 229 lb BMI 35.9 Intake Visit Reasons: OV- RT humeral shaft fx, DOI 01/29/25 w/ XR Intake Note: Amanda is a 59 year old right hand dominant female who presents today for follow up of humerus fx, DOI: 01/29/25. At patient last visit she was placed in a humerus brace and was instructed no lifting, pushing, pulling or carrying anything with that right upper extremity more than a cell phone. She should work on elbow and wrist range of motion, follow up in 2 weeks with x-rays. Patient reports her pain has become a little more tolerable. Her current pain level is a 5 out of 10. States her most discomfort is in the evenings. Finds some relief with Tylenol. Allergies ibuprofen Allergy (Unknown, Verified 02/24/25 14:25) kidney problems Medication List - Last Reconciled 02/24/25 by Bryon Stroud PA-C acetaminophen ER 650 mg PO TID [Adult Diaper As directed] amlodipine 10 mg PO DAILY lisinopril-hydrochlorothiazide 20-12.5 mg 1 tab PO DAILY ondansetron HCl 4 mg PO Q8H PRN oxycodone 5 mg PO Q8H PRN 7 days pantoprazole 1 tab PO DAILY HPI HPI OV- RT humeral shaft fx, DOI 01/29/25 w/ XR: Details: 59 yo female returns to the office today f/u Rt humeral shaft fracture. She continues to use the brace and feels her pain has improved. No concerns today. PFSH Medical History Kidney stones GERD (gastroesophageal reflux disease) HTN (hypertension) Surgical History Hx of cystoscopy History of esophagogastroduodenoscopy (EGD) Hx of colonoscopy History of surgery on right wrist History of surgery H/O left wrist surgery Status post total hip replacement, right Family History Mother Cancer Father Diabetes mellitus, type II Brother Diabetes Social History Household Members: Family Household Members Other:: youngest brother, oldest granson, daughter (duplex) Housing: House Do you presently have visiting nurse or other home services: No Alcohol intake: current Alcohol intake frequency: does not drink Patient Tobacco Use Status: Never used Tobacco service: No Current occupational status: disabled Current occupation: rt handed Review of Systems Const All systems reviewed & are unremarkable except as noted in HPI and below Physical Exam Vital Signs: BMI result Body Mass Index 35.9 Const General: cooperative and no acute distress Orientation/consciousness: patient oriented x3 Resp Effort & Inspection: normal respiratory effort and able to speak in complete sentences Cardio Peripheral pulses: Peripheral pulses 2+ throughout Neuro General: patient oriented x3 Extrem Other: Right shoulder resolved swelling and ecchymosis , minimal tenderness over the fracture site. She has good elbow range of motion she can supinate and pronate without pain. Anterior deltoid sensation intact. She has good wrist flexion extension and can abduct the thumb. Results Reviewed Results Reviewed: X-rays of the right humerus obtained in the office today and reviewed by me show minimally displaced right humerus fracture with slightly improved alignment Assessment & Plan Assessment & Plan (1) Fracture of humeral shaft, right, closed: Code(s): S42.301A - Unspecified fracture of shaft of humerus, right arm, initial encounter for closed fracture Category: Medical Qualifiers: Encounter type: subsequent encounter Fracture morphology: unspecified fracture morphology Fracture healing: with routine healing Qualified Code(s): S42.301D - Unspecified fracture of shaft of humerus, right arm, subsequent encounter for fracture with routine healing Plan: She will continue with the humerus brace at all times. Refrain from lifting activities. She can remove for hygiene. She will see me back in 6 weeks with xrays, sooner if needed. Orders: Orders XR humerus RT Today S42.301A - Unspecified fracture of shaft of humerus, right arm, initial encounter for closed fracture Coding Level of Care Code Global (73738) Diagnoses Closed fracture of shaft of right humerus with routine healing, unspecified fracture morphology, subsequent encounter S42.301D Encounter type: subsequent encounter Fracture morphology: unspecified fracture morphology Fracture healing: with routine healing
[2025-02-24 14:25] VITALS: BMI 35.9
--- OUTSIDE RECORDS SUMMARY | 2025-02-24 16:42 | XMS_ITS | Encounter Summary ---
Author Organization [employer] Address [address] [facility] 7t [place] [address] Care Team Providers Care Coat Hanger Shaper Machine Operator Name Role Phone Name, Leonardo LAYNE Primary Care Provider [phone] Encounter Details Date Type Department Care Team (Late Contact Info) Description 05/08/2023 Abstract [facility] [address] [place] [address] [phone] Name, MD Leonardo [address] [place] [address] Social History Tobacco Use Types Packs/Day Years [...] Description 02/25/2025 10:00 AM EDT Office Visit [facility] [address] [place] [address] [phone] Nany Stewart CNM [address] [place], [place] [phone] documented as of this encounter Visit Diagnoses Not on filedocumented in this encounter Care Teams Coat Hanger Shaper Machine Operator Relationship Specialty Start Date End Date Name, MD Leonardo [address] [place] [address] PCP - General Family Medicine 08/04/19 documented as of this encounter
--- OUTSIDE RECORDS SUMMARY | 2025-02-24 16:42 | XMS_ITS | Encounter Summary ---
Author Organization [employer] Address [address] [place] [address] 7 [place] [address] Care Team Providers Care Mud Mixer Operator Name Role Phone Name, Leonardo LAYNE Primary Care Provider [phone] Encounter Details Date Type Department Care Team ([facility] Contact Info) Description 11/22/2022 Telephone [facility] [address] [place] [phone] Name, MD Leonardo [address] [place] [phone] Social History Tobacco Use Types Packs/Day Years [...] Description 02/25/2025 10:00 AM EDT Office Visit [facility] [address] [place] [phone] Nany Stewart CNM [address] [place] [address] documented as of this encounter Visit Diagnoses Not on filedocumented in this encounter Care Teams Mud Mixer Operator Relationship Specialty Start Date End Date Name, MD Leonardo [address] [place] [address] PCP - General Family Medicine 08/04/19 documented as of this encounter
--- OUTSIDE RECORDS SUMMARY | 2025-02-24 16:43 | XMS_ITS | Clinical Summary ---
Author Organization [employer] Address [address] [facility] 7t [place] [address] Care Team Providers Care Universal Winding Machine Operator Name Role Phone Name, Leonardo LAYNE Primary Care Provider [phone] Allergies Active Allergy Reactions Criticality Noted Date [...] Department Care Team Description 01/29/2025 Orders Only [facility] External Provider, [facility] 01/29/2025 Telephone [facility] [address] [place] [address] Gagandeep Barnes [place] may recalls 01/29/2025 Telephone [facility] [address] [place] [address] Gagandeep Barnes [place] may recalls 01/15/2025 Abstract [facility] [address] [place] [address] NameLeonardo MD 01/12/2025 11:30 AM EST Office Visit [facility] [address] [place] [address] Name, MD Leonardo Hypertension, unspecified type (Primary [...] 10:00 AM EDT Office Visit [facility] [address] [place], [place] [phone] Ryley Oseguera, CINDI [address] [place] [address] Health Maintenance Due Date Last Done Comments [...] EST Narrative 01/29/2025 6:38 PM EST ? [facility] ?[address] ?[place] [address] ?XRay Report ? Signed ? Patient: Amanda Santiago N ?MR#: [id number] ?? 10 ? : 1965 ?Acct:[id number] ? Age/Sex: 59 / F ?ADM Date: 01/29/25 ? Loc: HO.ED ? Attending Dr: ? Ordering Physician: Román Howard MD ?? Date of Service: 01/29/25 ?? Procedure(s): XR shoulder RT 1V ?? Accession Number(s): [id number] ? cc: Name,Leonardo LAYNE; Román Howard MD [...] DD/ 1836 ? TD/TT: 01/29/25 1836 ? Information Assurance Manager: ? Procedure Note Donotuseinterpreter, Image - 01/29/[address] [address] XRay Report Signed Patient: Amanda Santiago NMR#: [id number] 10 : 1965Acct:[id number] Age/Sex: 59 / FADM Date: 01/29/25 Loc: HO.ED Attending Dr: Ordering Physician: Román Howard MD Date of Service: 01/29/25 Procedure(s): XR shoulder RT 1V Accession Number(s): [id number] cc: Oksana,Leonardo LAYNE; Román Howard MD CLINICAL [...] OV> 01/29/251836 DD/ 35 TD/TT: 01/29/25 183 Information Assurance Manager: [facility] External Provider IMG XR PROCEDURES Final Result * XR Humerus Right (01/29/2025 5:42 PM EST) Anatomical Region Laterality Modality Upper Extremities, Humerus Right Radio graphic Imaging 01/29/2025 5:42 PM EST Narrative 02/01/2025 8:15 AM EDT ? [place] [facility] ?[address] ?[place] [address] ?XRay Report ? Signed ? Patient: Pamela,Amanda N ?MR#: [id number] ?? 10 ? : 1965 ?Acct:[id number] ? Age/Sex: 59 / F ?ADM Date: 01/29/25 ? Loc: HO.ED ? Attending Dr: ? Ordering Physician: Román Howard MD ?? Date of Service: 01/29/25 ?? Procedure(s): XR humerus RT ?? Accession Number(s): [id number] ? cc: Name,Leonardo LAYNE; Román Howard MD [...] DD/ 1742 ? TD/TT: 01/29/25 1559 ? Information Assurance Manager: ? Procedure Note Que Vincent - 02/01/[address] [address] XRay Report Signed Patient: Amanda Santiago [facility]#: [id number] 10 : 1965Acct:[id number] Age/Sex: 59 / FADM Date: 01/29/25 Loc: HO.ED Attending Dr: Ordering Physician: Román Howard MD Date of Service: 01/29/25 Procedure(s): XR humerus RT Accession Number(s): [id number] cc: Leonardo Gandhi MD; Román Howard MD [...] OV> 02/01/25 0813 DD/ 1742 TD/TT: 01/29/25 1555 Information Assurance Manager: [facility] External Provider IMG XR PROCEDURES Edited Result - Final * Hematoxylin and Eosin Stain (12/29/2024 8:12 AM EST) 12/29/2024 8:12 AM EST 12/29/2024 8:53 AM EST [facility] LABS - 12/31/2024 1:19 PM EST ----- ------- Name: Amanda Santiago ? Age/Sex: 59/F ? : 1965 Unit#: [id number] ?? Attend Dr: Dora Rodriguez MD ?Re12/29/24 ?Status: DEP SDC ? Location: HO.SSS ?Disch: ? ----- ------- SPEC : [id number] ?RECD: 12/29/24 ? STATUS: ??SOUT ? REQ NUM: [id number] ? JOSSELINE: 12/29/24 ? SUBM DR: Dora [...] Copies To: ?? Name,Leonardo LAYNE ?? [address] [facility] ?? [place] [address] ?? [phone] ?? Dora Rodriguez MD ?? [facility] Gastroenterology Services ?? [address] ?? [place] [address] ?? [phone] ?? [email or web address] ? CONTINUED ON NEXT PAGE ----- ------- Name: PamelaAmanda Jonathan ? Age/Sex: 59/F ? : 1965 Unit#: [id number] ?? Attend Dr: Dora Rodriguez MD ?Re12/29/24 ?Status: DEP WYC ? Location: HO.SSS ?Disch: ? ----- ------- SPEC : [id number] ?RECD: 12/29/24 ? STATUS: ??SOUT ? REQ NUM: [id number] ? JOSSELINE: 12/29/24 ? SUBM DR: Dora Rodriguez MD ? ENTERED: ??12/29/24 ?SP TYPE: Surgical ? OTHR DR: Leonardo Gandhi MD ? ORDERED: ??HE Stain/3, Gross Micro L4, IHC, Special st. 2, H. pylori, AB/PAS ? ----- ------- Signed (signature on file) Georgia Gallagher 12/31/24 8009 ? ----- ------- ? END OF REPORT ? us Generic External Data Provider LAB BLOOD ORDERAB LES Final Result [facility] [address] [facility] [place] [address] [phone] * (ABNORMAL) Hm Colonoscopy (07/07/2024 9:01 AM EDT) Colonoscopy Abnormal(A ) Normal 07/07/2024 9:01 AM EDT us Leonardo Name HEALTH MAINTENANCE Final Result * BI Mammogram Screening Tomosynthesis Bilateral (03/18/2024 11:51 AM EDT) Anatomical Region Laterality Modality Breast Bilateral Mammography 03/18/2024 11:5 1 AM EDT Narrative 03/23/2024 10:04 AM EDT ? [facility] [place] ? [address] ?[place] [address] ? Mammography Report ? Signed ? Patient: Pamela,Amanda N ?MR#: [id number] ?? 10 ? : 1965 ?Acct:[id number] ? Age/Sex: 58 / F ?ADM Date: 04/24/24 ? Loc: HO.MAMMO ? Attending Dr: Ryley Oseguera CNM ? Ordering Physician: RYLEY OSEGUERA CNM ?Results: 1 ?? Negative ? Date of Service: 03/18/24 ?Follow Up: 1 Year From Orig ?? inal Mammogram ? Procedure(s): MM tomosynthesis screening BI ?? Accession Number(s): [id number] ? cc: Oksana,Leonardo LAYNE; RYLEY OSEGUERA CNM [...] 1000 ? DD/ 1151 ? TD/TT: ? Information Assurance Manager: ? Procedure Note Melisa, Image - 03/23/2024 [facility] [address] [place], [place] [address] Mammography Report Signed Patient: Amanda Santiago NMR#: [id number] 10 : 1965Acct:[id number] Age/Sex: 58 / FADM Date: 03/18/24 Loc: HO.MAMMO Attending Dr: Ryley Oseguera CNM Ordering Physician: RYLEY OSEGUERAesults: 1 Negative Date of Service: 03/18/24Follow Up: 1 Year From Orig ina Mammogram Procedure(s): MM tomosynthesis screening BI Accession Number(s): [id number] cc: Oksana,Leonardo LAYNE; RYLEY OSEGUERA CNM EXAMINATION: [...] in OV> 03/23/24 1000 DD/ 1151 TD/TT: Information Assurance Manager: Ryley Oseguera CNM IMG BI PROCEDURES Edited Result - Final * HPV mRNA E6/E7 w/Reflex to HPV Genotypes 16, 18/45 (02/26/2024 9:27 AM EDT) HPV nRNA E6/E7 Not Detected Not Detected [facility] Comment:Methodology: Transcr iption-Mediated AmplificationThis assay detects E6/E7 viral messenger RNA (mRNA) from 14high-risk HPV types (16,18,31,33,35,39,45,51,52,56,58,59,66,68).Cervical sources are required for HPV testing.If a vaginal source from a patient who has had atotal hysterectomy with removal of cervix wassubmitted, please contact the testing laboratoryfor alternative testing options.For additional information, please refer tohttp://education.Instilling Values/faq/ICD920c5(This link if provided for information/educational purposes only.)THIS TEST WAS PERFORMED AT:[employer] [place] [phone] BRAVO MD HPV mRNA E6/E7 TNP [facility] HPV 16 RNA [facility] HPV 18/45 RNA [facility] 02/26/2024 9:27 AM EDT 02/27/2024 6:30 AM EDT us Ryley Oseguera [facility] LAB CYTOLOGY ORDERABLES F inal Result [facility] [address] [place] [phone] * Pap Smear (02/26/2024 9:27 AM EDT) Swab Cervix uteri structure / Unknown 02/26/2024 9:27 AM EDT 02/27/2024 6:30 AM EDT Narrative [facility] - 03/14/2024 4:22 PM EDT ----- ------- Name: Amanda Santiago Jonathan ? Age/Sex: 58/F ? : 1965 Unit#: [id number] ?? Attend Dr: RYLEY OSEGUERA CNM ?Re02/26/24 ?Status: DEP REF ? Location: HO.LNP ?Disch: ? ----- ------- SPEC : [id number] ? RECD: 02/27/24 ? STATUS: ??SOUT ? REQ NUM: [id number] ? JOSSELINE: 02/26/24 ? SUBM DR: RYLEY [...] 66, 68) ? HPV testing performed by [employer], [place], [place]. ??See reference laboratory ?? portion of the EMR for entire report. ?Clinical Information LMP: Postmenopausal Previous PAP test: Unknown date/findings ? Material Received ?? ThinPrep-Cervical ----- ------- Signed (signature on file) Roxie Dasilva Alfred 03/14/241621 ? ----- ------- ? END OF REPORT ? us Ryley Oseguera [facility] LAB CYTOLOGY ORDERABLES F inal Result [facility] [address] [place] [address] [phone] * Hepatitis C Ab (02/12/2024 10:43 AM EDT) Hepatitis C Antibody Nonreactive Nonreactive [facility] Comment:Antibodies to HCV no t detected; does not exclude early acuteHCV infection. Blood Venous blood specimen / Unknown 02/12/2024 10:43 AM EDT 02/12/2024 11:20 AM EDT us Leonardo Name MD LAB BLOOD ORDERABLES Final Resul t Performing Organization Address [facility] Co de Phone Number [facility] [address] [place] [phone] * (ABNORMAL) Lipid Panel, Standard (02/12/2024 10:43 AM EDT) Pathologist [facility] Triglycerides 72 <150 mg/dL [facility] Comment:Desirable Triglyceri de: less than 150 mg/dLBorderline High Triglyceride 150-199 mg/dLHigh Triglyceride: 200-499 mg/dLVery High Triglyceride: greater than or equal to 5OO mg/dL Cholesterol 184 <200 mg/dL [facility] Comment:Desirable Cholestero l: less than 200 mg/dLBorderline High Cholesterol: 200-239 mg/dLHigh Cholesterol: greater than 239 mg/dL LDL Cholesterol Calculated 109(H) <100 mg/dL [facility] Comment:Desirable LDL: less than 100 mg/dLNear Optimal/Above Optimal LDL: 110- 129 mg/dLBorderline High LDL: 130-159 mg/dLHigh LDL: 160-189 mg/dLVery High LDL: greater than or equal to 190 mg/dL HDL Cholesterol 61 >40 mg/dL [facility] Comment:Desirable HDL: great er than 40 mg/dL Note: This HDL assay may give artificially low results in patients with liver disease. Blood Venous blood specimen / Unknown 02/12/2024 10:43 AM EDT 02/12/2024 11:20 AM EDT us Leonardo Name LAB BLOOD ORDERABLES Final Resul t [facility] [address] [place] [address] [phone] from Last 3 Months or Most Recently Relevant to Health Maintenance Insurance [facility] Care Teams Universal Winding Machine Operator Relationship Specialty Start Date End Date Name, MD Leonardo [address] [place] [address] PCP - General Family Medicine 08/04/19
== END 2025-02-24 15:21 | disposition home or self-care (01) ==
LOC: HO.HOS 13:58
PROVIDERS: PCP Internal Medicine Geriatric Medicine; Visit Provider Physician Assistant
DX: S42.301D Unspecified fracture of shaft of humerus, right arm, subsequent encounter for fracture with routine healing (principal)
CPT/HCPCS: 99213

== ENCOUNTER → 2025-02-24 14:09 | Outpatient (BNV) | payer OTHER, SELFPAY | PROVIDERS: Visit Provider Radiology Diagnostic Radiology | DX: S42.301D Unspecified fracture of shaft of humerus, right arm, subsequent encounter for fracture with routine healing (principal) | CPT/HCPCS: 73060 ==

== ENCOUNTER 2025-03-24 11:25 | Outpatient (REF) | payer OTHER, SELFPAY ==
--- OUTSIDE RECORDS SUMMARY | 2025-03-24 13:04 | XMS_ITS | Clinical Summary ---
Author Organization [employer] Address [address] [facility] 7t [place] [address] Care Team Providers Care Buffing Machine Operator Semiautomatic Name Role Phone Name, Leonardo LAYNE Primary Care Provider [phone] Allergies Active Allergy Reactions Criticality Noted Date [...] MORNING 90 tablet 3 07/29/20 24 Active Diclofenac Sodium 1 % gelIndications: Hypertension, unspecified type,Impaired fasting glucose,Screeni ng for cholesterol level,Chronic pain of right knee APPLY 4 GRAMS TO affected KNEE EVERY DAY 100 g 1 01/12/20 25 Active pantoprazole (ProtoNix) 40 MG EC tabletIndicatio ns:Hypertension , unspecified type,Impaired fasting glucose,Gastroe sophageal reflux disease, unspecified whether esophagitis present,Screeni ng for cholesterol level,Chronic pain of right knee TAKE 1 TABLET BY MOUTH EVERY DAY 90 tablet 03/16/20 25 Active pantoprazole (ProtoNix) 40 MG EC tabletIndicatio ns:Hypertension , unspecified type,Impaired fasting glucose,Gastroe sophageal reflux disease, unspecified whether esophagitis present,Screeni ng for cholesterol level,Chronic pain of right knee TAKE 1 TABLET BY MOUTH EVERY DAY 90 tablet 10/21/20 24 025 Discontinued Active Problems Problem Noted Date Diagnosed Date [...] Encounters Date Type Department Care Team Description 03/14/[address] [address] Parisa Armstrong NP Hypertension, unspecified type; Impaired fasting glucose; Gastroesophageal reflux disease, unspecified whether esophagitis present; Screening for cholesterol level; Chronic pain of right knee 03/10/2025 Telephone [facility] [address] [place] [phone] Leonardo Gandhi MD Durable Medical Equipment 02/25/2025 Telephone [facility] [address] [place] [phone] Leonardo Gandhi MD No Show 01/29/2025 Orders Only [facility] External Provider, [facility] 01/29/2025 Telephone [facility] [address] [place] [address] Gagandeep Barnes [place] may recalls 01/29/2025 Telephone [facility] [address] [place] [address] Gagandeep Barnes [place] may recalls 01/15/[address] [address] Leonardo Gandhi MD 01/12/2025 11:30 AM EST Office Visit [facility] [address] [place] [phone] Leonardo Gandhi MD Hypertension, unspecified type (Primary [...] 01/12/2025 11:27 AM EST Plan of Treatment Health Maintenance Due Date Last Done Comments [...] EST Narrative 01/29/2025 6:38 PM EST ? [facility] ?[address] ?[place] [address] ?XRay Report ? Signed ? Patient: Amanda Santiago ?MR#: [id number] ?? 10 ? : 1965 ?Acct:[id number] ? Age/Sex: 59 / F ?ADM Date: 01/29/25 ? Loc: HO.ED ? Attending Dr: ? Ordering Physician: Román Howard MD ?? Date of Service: 01/29/25 ?? Procedure(s): XR shoulder RT 1V ?? Accession Number(s): [id number] ? cc: Leonardo Gandhi MD; Román Howard MD ? CLINICAL HISTORY: fall, [...] ? DD/ 35 ? TD/TT: 01/29/251835 ? Simulation Specialist: ? Procedure Note Que Vincent - 01/29/[address] [address] XRay Report Signed Patient: Amanda Santiago NMR#: [id number] 10 : 1965Acct:[id number] Age/Sex: 59 / FADM Date: 01/29/25 Loc: HO.ED Attending Dr: Ordering Physician: Román Howard MD Date of Service: 01/29/25 Procedure(s): XR shoulder RT 1V Accession Number(s): [id number] cc: Name,Leonardo LAYNE; Román Howard MD CLINICAL HISTORY: fall, [...] in OV> 01/29/251836 DD/ 35 TD/TT: 01/29/251835 Simulation Specialist: [facility] External Provider IMG XR PROCEDURES Final Result * XR Humerus Right (01/29/2025 5:42 PM EST) Anatomical Region Laterality Modality Upper Extremities, Humerus Right Radio graphic Imaging 01/29/2025 5:42 PM EST Narrative 02/01/2025 8:15 AM EDT ? [facility] ?[address] ?[place] [address] ?XRay Report ? Signed ? Patient: Pamela,Amanda N ?MR#: [id number] ?? 10 ? : 1965 ?Acct:[id number] ? Age/Sex: 59 / F ?ADM Date: 01/29/25 ? Loc: HO.ED ? Attending Dr: ? Ordering Physician: Román Howard MD ?? Date of Service: 01/29/25 ?? Procedure(s): XR humerus RT ?? Accession Number(s): [id number] ? cc: Name,Leonardo LAYNE; Román Howard MD [...] DD/ 1742 ? TD/TT: 01/29/25 1559 ? Simulation Specialist: ? Procedure Note Que Vincent - 02/01/2025 [address] [place] [address] XRay Report Signed Patient: Amanda Santiago NMR#: [id number] 10 : 1965Acct:[id number] Age/Sex: 59 / FADM Date: 01/29/25 Loc: HO.ED Attending Dr: Ordering Physician: Román Howard MD Date of Service: 01/29/25 Procedure(s): XR humerus RT Accession Number(s): [id number] cc: Name,Leonardo LAYNE; Román Howard MD EXAMINATION: [...] 02/01/25 0813 DD/ 1742 TD/TT: 01/29/25 1559 Simulation Specialist: [facility] External Provider IMG XR PROCEDURES Edited Result - Final * Hematoxylin and Eosin Stain (12/29/2024 8:12 AM EST) 12/29/2024 8:12 AM EST 12/29/2024 8:53 AM EST [facility] LABS - 12/31/2024 1:19 PM EST ----- ------- Name: Amanda Santiago ? Age/Sex: 59/F ? : 1965 Unit#: [id number] ?? Attend Dr: Dora Rodriguez MD ?Re12/29/24 ?Status: DEP SDC ? Location: HO.SSS ?Disch: ? ----- ------- SPEC : [id number] ?RECD: 12/29/24 ? STATUS: ??SOUT ? REQ NUM: [id number] ? JOSSELINE: 12/29/24 ? SUBM DR: Dora [...] Copies To: ?? Name,Leonardo LAYNE ?? [address] [facility] ?? [place] [address] ?? [phone] ?? Dora Rodriguez MD ?? [facility] Gastroenterology Services ?? [address] ?? [place] [address] ?? [phone] ?? [email or web address] ? CONTINUED ON NEXT PAGE ----- ------- Name: Amanda Santiago ? Age/Sex: 59/F ? : 1965 Unit#: [id number] ?? Attend Dr: Dora Rodriguez MD ?Re12/29/24 ?Status: DEP SDC ? Location: HO.SSS ?Disch: ? ----- ------- SPEC : [id number] ?RECD: 12/29/24 ? STATUS: ??SOUT ? REQ NUM: [id number] ? JOSSELINE: 12/29/24 ? SUBM DR: Dora Rodriguez MD ? ENTERED: ??12/29/24 ?SP TYPE: Surgical ? OTHR DR: Leonardo Gandhi MD ? ORDERED: ??HE Stain/3, Gross Micro L4, IHC, Special st. 2, H. pylori, AB/PAS ? ----- ------- Signed (signature on file) Georgia Gallagher 029 ? ----- ------- ? END OF REPORT ? us Generic External Data Provider LAB BLOOD ORDERAB LES Final Result [facility] [address] [place] [phone] * (ABNORMAL) Colonoscopy (07/07/2024 9:01 AM EDT) Colonoscopy Abnormal(A ) Normal 07/07/2024 9:01 AM EDT us Leonardo Gandhi MD HEALTH MAINTENANCE Final Result * BI Mammogram Screening Tomosynthesis Bilateral (03/18/2024 11:51 AM EDT) Anatomical Region Laterality Modality Breast Bilateral Mammography 03/18/2024 11:5 1 AM EDT Narrative 03/23/2024 10:04 AM EDT ? [facility] [place] ? [address] [facility] ?[place] [address] ? Mammography Report ? Signed ? Patient: Pamela,Amanda N ?MR#: [id number] ?? 10 ? : 1965 ?Acct:[id number] ? Age/Sex: 58 / F ?ADM Date: 04/24/24 ? Loc: HO.MAMMO ? Attending Dr: Ryley Oseguera CNM ? Ordering Physician: RYLEY OSEGUERA CNM ?Results: 1 ?? Negative ? Date of Service: 03/18/24 ?Follow Up: 1 Year From Orig ?? inal Mammogram ? Procedure(s): MM tomosynthesis screening BI ?? Accession Number(s): [id number] ? cc: Name,Leonardo LAYNE; RYLEY OSEGUERA CNM [...] 1000 ? DD/ 1151 ? TD/TT: ? Simulation Specialist: ? Procedure Note Donotuseinterpreter, Image - 03/23/2024 [facility] [address] [place] [address] Mammography Report Signed Patient: Amanda Santiago [facility]#: [id number] 10 : 1965Acct:[id number] Age/Sex: 58 / FADM Date: 03/18/24 Loc: HO.MAMMO Attending Dr: Ryley Oseguera CNM Ordering Physician: RYLEY OSEGUERAesults: 1 Negative Date of Service: 03/18/24Follow Up: 1 Year From Orig inal Mammogram Procedure(s): MM tomosynthesis screening BI Accession Number(s): [id number] cc: Leonardo Gandhi MD; RYLEY OSEGUERA CNM [...] in OV> 03/23/24 1000 DD/ 1151 TD/TT: Simulation Specialist: Ryley Oseguera CNM IMG BI PROCEDURES Edited Result - Final * HPV mRNA E6/E7 w/Reflex to HPV Genotypes 16, 18/45 (02/26/2024 9:27 AM EDT) HPV nRNA E6/E7 Not Detected Not Detected [facility] Comment:Methodology: Transcr iption-Mediated AmplificationThis assay detects E6/E7 viral messenger RNA (mRNA) from 14high-risk HPV types (16,18,31,33,35,39,45,51,52,56,58,59,66,68).Cervical sources are required for HPV testing.If a vaginal source from a patient who has had atotal hysterectomy with removal of cervix wassubmitted, please contact the testing laboratoryfor alternative testing options.For additional information, please refer tohttp://education.Trademob/faq/XFD440v4(This link if provided for information/educational purposes only.)THIS TEST WAS PERFORMED AT:[facility] [place] [id number] BRAVO MD HPV mRNA E6/E7 [facility] HPV 16 RNA [facility] HPV 18/45 RNA [facility] 02/26/2024 9:27 AM EDT 02/27/2024 6:30 AM EDT Ryley Oseguera CNM LAB CYTOLOGY ORDERABLES F inal Result [facility] [address] [place], [place] [phone] * Pap Smear (02/26/2024 9:27 AM EDT) Swab Cervix uteri structure / Unknown 02/26/2024 9:27 AM EDT 02/27/2024 6:30 AM EDT Narrative [facility] - 03/14/2024 4:22 PM EDT ----- ------- Name: Amanda Santiago Jonathan ? Age/Sex: 58/F ? : 1965 Unit#: [id number] ?? Attend Dr: RYLEY OSEGUERA CNM ?Re02/26/24 ?Status: DEP REF ? Location: HO.LNP ?Disch: ? ----- ------- SPEC : [id number] ? RECD: 02/27/24 ? STATUS: ??SOUT ? REQ NUM: [id number] ? JOSSELINE: 02/26/24 ? SUBM DR: RYLEY [...] 66, 68) ? HPV testing performed by [employer], [place], [place]. ??See reference laboratory ?? portion of the EMR for entire report. ?Clinical Information LMP: Postmenopausal Previous PAP test: Unknown date/findings ? Material Received ?? ThinPrep-Cervical ----- ------- Signed (signature on file) Roxie Dasilva Alfred 03/14/241621 ? ----- ------- ? END OF REPORT ? Ryley LOPEZM LAB CYTOLOGY ORDERABLES F inal Result Performing Organization Address [facility] de Phone Number [facility] [address] [place] [address] [phone] * Hepatitis C Ab (02/12/2024 10:43 AM EDT) Hepatitis C Antibody Nonreactive Nonreactive [facility] Comment:Antibodies to HCV no t detected; does not exclude early acuteHCV infection. Blood Venous blood specimen / Unknown 02/12/2024 10:43 AM EDT 02/12/2024 11:20 AM EDT Leonardo Gandhi MD LAB BLOOD ORDERABLES Final Resul t Performing Organization Address [facility] de Phone Number [facility] [address] [place] [address] [phone] * (ABNORMAL) Lipid Panel, Standard (02/12/2024 10:43 AM EDT) Triglycerides 72 <150 mg/dL [facility] Comment:Desirable Triglyceri de: less than 150 mg/dLBorderline High Triglyceride 150-199 mg/dLHigh Triglyceride: 200-499 mg/dLVery High Triglyceride: greater than or equal to 5OO mg/dL Cholesterol 184 <200 mg/dL [facility] Comment:Desirable Cholestero l: less than 200 mg/dLBorderline High Cholesterol: 200-239 mg/dLHigh Cholesterol: greater than 239 mg/dL LDL Cholesterol Calculated 109(H) <100 mg/dL [facility] Comment:Desirable LDL: less than 100 mg/dLNear Optimal/Above Optimal LDL: 110- 129 mg/dLBorderline High LDL: 130-159 mg/dLHigh LDL: 160-189 mg/dLVery High LDL: greater than or equal to 190 mg/dL HDL Cholesterol 61 >40 mg/dL [facility] Comment:Desirable HDL: great er than 40 mg/dL Note: This HDL assay may give artificially low results in patients with liver disease. Blood Venous blood specimen / Unknown 02/12/2024 10:43 AM EDT 02/12/2024 11:20 AM EDT us Leonardo Gandhi MD LAB BLOOD ORDERABLES Final Resul t [facility] [address] [place] [address] [phone] from Last 3 Months or Most Recently Relevant to Health Maintenance Insurance [facility] CARE < [address] [id number] Care Teams Buffing Machine Operator Semiautomatic Relationship Specialty Start Date End Date Name, MD Leonardo [address] [place], [place] PCP - General Family Medicine 08/04/19
--- OUTSIDE RECORDS SUMMARY | 2025-03-24 13:04 | XMS_ITS | Encounter Summary ---
Author Organization [email or web address] Address [address] [facility] [address] [place] [address] Care Team Providers Care Privacy Compliance Manager Name Role Phone Name, Leonardo LAYNE Primary Care Provider [phone] Encounter Details Date Type Department Care Team ([facility] st Contact Info) Description 11/22/2022 Telephone [facility] MEDICINE [address] [place] [address] Name, MD Leonardo [address] [place] [address] Social History Tobacco Use Types Packs/Day Years Used Date Smoking Tobacco: Never Assessed Comments Unknown Sex and Gender Information Value Date Recorded Sex Assigned at Female 09/24/2022 10:15 AM EDT Legal Sex Female 10:15 AM EDT Gender Identity Female 09/24/2022 10:15 AM EDT Sexual Orientation Choose not to disclose 2021 10:15 AM EDT documented as of this encounter Plan of Treatment Not on file documented as of this encounter Visit Diagnoses Not on filedocumented in this encounter Care Teams Privacy Compliance Manager Relationship Specialty Start Date End Date Name, MD Leonardo [address] [place] [address] PCP - General Family Medicine 08/04/19 documented as of this encounter
--- OUTSIDE RECORDS SUMMARY | 2025-03-24 13:04 | XMS_ITS | Encounter Summary ---
Author Organization [employer] Address [address] [facility] [address] [place] [address] Care Team Providers Care Fast Food Worker Name Role Phone Name, Leonardo LAYNE Primary Care Provider [phone] Encounter Details Date Type Department Care Team (Late st Contact Info) Description 05/08/2023 Abstract [facility] MEDICINE [address] [place] [address] Name, MD Leonardo [address] [place] [address] Social History Tobacco Use Types Packs/Day Years [...] on filedocumented in this encounter Care Teams Fast Food Worker Relationship Specialty Start Date End Date NameLeonardo MD [address] [place] [address] PCP - General Family Medicine 08/04/19 documented as of this encounter
--- OUTSIDE RECORDS SUMMARY | 2025-03-24 13:04 | XMS_ITS | Encounter Summary ---
Author Organization [employer] Address [address] [facility] 7t [place] [address] Care Team Providers Care Professor Of Criminal Justice Name Role Phone Name, Leonardo LAYNE Primary Care Provider [phone] Reason for Visit * Reason Onset Date Comments Durable Medical Equipment 03/10/2025 Encounter Details Date Type Department Care Team ([facility] st Contact Info) Description 03/10/2025 Telephone [facility] MEDICINE [address] [place] [address] Name, MD Leonardo [address] [place] [address] Durable Medical Equipment Social History Tobacco Use Types Packs/Day Years [...] encounter Miscellaneous Notes * Telephone Encounter - Twan Gallardo - 03/10/2025 1:49 PM EDT Tc from pt stating that she spoke with [employer] and they told her that they aren't able to deliver the supply due ti it not being enough and pt is not able to pick them up herself. Pt said that she was told to ask for 3 more pack. Contact pt at [phone] documented in this encounter Plan of Treatment Not on file documented as of this encounter Visit Diagnoses Not on filedocumented in this encounter Additional Health Concerns Assessment Noted Time PHQ-9 Depression Total Score: 0 02/12/20 24 9:39 AM EDT documented as of this encounter Care Teams Professor Of Criminal Justice Relationship Specialty Start Date End Date Name, MD Leonardo [address] [place] [address] PCP - General Family Medicine 08/04/19 documented as of this encounter
== END 2025-03-24 11:26 | disposition home or self-care (01) ==
LOC: HO.MAMMO 11:25
PROVIDERS: PCP Internal Medicine Geriatric Medicine; Visit Provider Internal Medicine Geriatric Medicine
DX: Z12.31 Encounter for screening mammogram for malignant neoplasm of breast (principal)
CPT/HCPCS: 77063; 77067

== ENCOUNTER → 2025-03-24 11:30 | Outpatient (BNV) | payer OTHER, SELFPAY | PROVIDERS: PCP Internal Medicine Geriatric Medicine; Visit Provider Internal Medicine | DX: Z12.31 Encounter for screening mammogram for malignant neoplasm of breast (principal) | CPT/HCPCS: 77063; 77067 ==

== ENCOUNTER 2025-04-07 13:50 | Outpatient (REF) | payer OTHER, SELFPAY ==
--- NOTE | ~2025-04-07 | XR_ITS ---
EXAMINATION: XR HUMERUS RIGHT HISTORY: S42.301A - Unspecified fracture of shaft of humerus, right arm, initial ... COMPARISON: Comparison is made with the prior examination dated 02/24/2025. FINDINGS: AP and lateral views of the right humerus are submitted. Osseous mineralization is normal. Again seen is a mildly displaced fracture of the midshaft of the humerus. A moderate amount of new callus formation is seen consistent with healing. The visualized shoulder and elbow joint spaces are preserved. The soft tissues are unremarkable. XR/XR humerus RT IMPRESSION: Healing mildly displaced fracture of the midshaft of the humerus. Electronically signed by: Bill Kendrick MD 04/08/2025 08:15 AM EDT
--- OUTSIDE RECORDS SUMMARY | 2025-05-20 07:44 | XMS_ITS | Encounter Summary ---
Author Organization [employer] Address [address] [facility] [address] [place] [address] Care Team Providers Care Barrel Loader And Cleaner Name Role Phone NameLeonardo MD Primary Care Provider [phone] Encounter Details Date Type Department Care Team (Late st Contact Info) Description 05/08/2023 Abstract [facility] MEDICINE [address] [place] [address] Name, MD Leonardo [address] [place] [address] Social History Tobacco Use Types Packs/Day Years [...] on filedocumented in this encounter Care Teams Barrel Loader And Cleaner Relationship Specialty Start Date End Date NameLeonardo MD [address] [place] [address] PCP - General Family Medicine 08/04/19 documented as of this encounter
== END 2025-04-07 13:51 | disposition home or self-care (01) ==
LOC: HO.HOSX 13:50
PROVIDERS: Visit Provider Physician Assistant
DX: S42.301A Unspecified fracture of shaft of humerus, right arm, initial encounter for closed fracture (principal)
CPT/HCPCS: 73060; 99212

== ENCOUNTER 2025-04-07 13:56 | Outpatient (AMB) | payer OTHER, SELFPAY ==
--- OUTSIDE RECORDS SUMMARY | 2025-04-07 14:01 | XMS_ITS | Encounter Summary ---
Author Organization [employer] Address [address] [facility] 7t [place] [address] Care Team Providers Care Hot Worker Name Role Phone Name, Leonardo LAYNE Primary Care Provider [phone] Encounter Details Date Type Department Care Team ([facility] st Contact Info) Description 11/22/2022 Telephone [facility] MEDICINE [address] [place], [place] [phone] Name, MD Leonardo [address] [place] [address] Social History Tobacco Use Types Packs/Day Years [...] on filedocumented in this encounter Care Teams Hot Worker Relationship Specialty Start Date End Date Name, MD Leonardo [address] [place], [place] [phone] PCP - General Family Medicine 08/04/19 documented as of this encounter
--- OUTSIDE RECORDS SUMMARY | 2025-04-07 14:01 | XMS_ITS | Clinical Summary ---
Author Organization [employer] Address [address] [facility] 7t [place] [address] Care Team Providers Care Websphere Commerce Consultant Name Role Phone Name, Leonardo LAYNE Primary Care Provider [phone] Allergies Active Allergy Reactions Criticality Noted Date [...] Encounters Date Type Department Care Team Description 03/24/2025 Orders Only [facility] MEDICINE [address] [place] [phone] NameLeonardo MD 03/14/2025 Refill [facility] MEDICINE [address] [place] [phone] Parisa Armstrong NP Hypertension, unspecified type; Impaired fasting glucose; Gastroesophageal reflux disease, unspecified whether esophagitis present; Screening for cholesterol level; Chronic pain of right knee 03/10/2025 Telephone [facility] [place] [address] Leonardo Gandhi MD Durable Medical Equipment 02/25/[address] [address] Leonardo Gandhi MD No Show 01/29/2025 Orders Only [facility] External Provider, [facility] 01/29/2025 Telephone [facility] [place] [address] Gagandeep Barnes [place] may recalls 01/29/2025 Telephone [facility] [place] [address] Gagandeep Barnes [place] may recalls 01/15/2025 Abstract [facility] [place] [address] Leonardo Gandhi MD 01/12/2025 11:30 AM EST Office Visit [facility] MEDICINE [address] [place] [address] Name, MD Leonardo Hypertension, unspecified type (Primary Dx); Impaired fasting glucose; Screening for cholesterol level; Chronic pain of right knee from Last 3 Months Immunizations Immunization Administration Dates Next Due Hep B, adult [...] Screening 06/05/2025 06/05/2024 Tobacco Screening 01/12/2026 01/12/2025 Pap Smear 02/25/2027 02/26/2024 Mammogram 03/24/2027 03/24/2025, 04/02/2024, 02/12/2022, Additional history exists Colonoscopy 07/07/2027 07/07/2024 Colorectal Cancer Screening 07/07/2027 [...] Diagnosis Comments BI MAMMOGRAM SCREENING TOMOSYNTHESIS BILATERAL Routine 03/24/2025 12:00 PM EDT XR SHOULDER 1 VIEW RIGHT Routine 01/29/2025 6:36 PM EST XR HUMERUS RIGHT Routine 01/29/2025 5:42 PM EST HM COLONOSCOPY Routine 07/07/2024 9:01 AM EDT HPV MRNA E6/E7 REFLEX TO HPV 16, [...] Results * BI Mammogram Screening Tomosynthesis Bilateral (03/24/2025 12:00 PM EDT) Anatomical Region Laterality Modality Breast Bilateral Mammography 03/24/2025 12:0 0 PM EDT Narrative 03/29/2025 5:27 PM EDT ? [facility] [place] ? [address] ?[place] [address] ?[phone] ? Mammography Report ? Signed ? Patient: Amanda Santiago N ?MR#: [id number] ?? 10 ? : 1965 ?Acct:[id number] ? Age/Sex: 59 / F ?ADM Date: 04/30/25 ? Loc: HO.MAMMO ? Attending Dr: Leonardo Name MD ? Ordering Physician: Name,Leonardo MD ?Results: 1Negative ? Date of Service: 04/30/25 ?Follow Up: 1 Year From Orig ?? inal Mammogram ? Procedure(s): MM tomosynthesis screening BI ?? Accession Number(s): [id number] ? cc: Name,Leonardo LAYNE ? EXAMINATION: ?? MM SCREENING DIGITAL BREAST TOMOSYNTHESIS, BILATERAL ? CLINICAL INFORMATION: ? Screening. Asymptomatic. ? COMPARISON: ?? Mammography: Comparison is made with available priors ? TECHNIQUE: ?? Digital breast mammography with tomosynthesis is performed in both the ?? craniocaudal and mediolateral oblique views along with computer-aided ?? detection (CAD). ? FINDINGS: ?? There are scattered areas [...] due date for their next mammogram. ? Electronically signed by: ??Barbara Hughes DO ??03/29/2025 05:25 PM EDT ? Dictated By: ?Barbara Hughes DO ? Signed By: ?<Electronically signed by Barbara Hughes, DO in OV> ? 03/29/25 1725 ? DD/ 1200 ? TD/TT: 03/24/25 1226 ? Combination Machine Tool Operator: ? Procedure Note Que Vincent - 03/29/2025 [facility] [address] [place] [address] Mammography Report Signed Patient: Amanda Santiago NMR#: [id number] 10 : 1965Acct:[id number] Age/Sex: 59 / FADM Date: 03/24/25 Loc: HO.MAMMO Attending Dr: Leonardo Gandhi MD Ordering Physician: Leonardo Gandhiesults: 1Negative Date of Service: 03/24/25Follow Up: 1 Year From Orig ina Mammogram Procedure(s): MM tomosynthesis screening BI Accession Number(s): [id number] cc: Leonardo Gandhi MD EXAMINATION: MM SCREENING DIGITAL BREAST TOMOSYNTHESIS, BILATERAL CLINICAL INFORMATION: Screening. Asymptomatic. COMPARISON: Mammography: Comparison is made with available priors TECHNIQUE: Digital breast mammography with tomosynthesis is performed in both the craniocaudal and mediolateral oblique views along with computer-aided detection (CAD). FINDINGS: There are scattered areas of fibroglandular [...] target due date for their next mammogram. Electronically signed by: Barbara Hughes DO 03/29/2025 05:25 PM EDT Dictated By: Barbara Hughes DO Signed By: <Electronically signed by Barbara Hughes DO in OV> 03/29/25 1725 DD/ 1200 TD/TT: 03/24/25 1226 Combination Machine Tool Operator: us Leonardo Gandhi MD IMG BI PROCEDURES Final Result * XR Shoulder 1 View Right (01/29/2025 6:36 PM EST) Anatomical Region Laterality Modality Upper Extremities, Shoulder Right Radi ographic Imaging 01/29/2025 6:36 PM EST Narrative 01/29/2025 6:38 PM EST ? [facility] ?[address] ?[place] [address] ?XRay Report ? Signed ? Patient: Pamela,Amanda N ?MR#: [id number] ?? 10 ? : 1965 ?Acct:[id number] ? Age/Sex: 59 / F ?ADM Date: 01/29/25 ? Loc: HO.ED ? Attending Dr: ? Ordering Physician: Román Howard MD ?? Date of Service: 01/29/25 ?? Procedure(s): XR shoulder RT 1V ?? Accession Number(s): [id number] ? cc: Name,Leonardo LAYNE; Román Howard MD [...] ?01/29/25 1837 ? DD/ 1836 ? TD/TT: 01/29/251835 ? Combination Machine Tool Operator: ? Procedure Note Melisa, Image - 01/29/2025 [place] [address] XRay Report Signed Patient: Amanda aSntiago NMR#: [id number] 10 : 1965Acct:[id number] Age/Sex: 59 / FADM Date: 01/29/25 Loc: HO.ED Attending Dr: Ordering Physician: Román Howard MD Date of Service: 01/29/25 Procedure(s): XR shoulder RT 1V Accession Number(s): [id number] cc: Leonardo Gandhi MD; Román Howard MD [...] in OV> 01/29/251836 DD/ 35 TD/TT: 01/29/251835 Combination Machine Tool Operator: [facility] External Provider IMG XR PROCEDURES Final Result * XR Humerus Right (01/29/2025 5:42 PM EST) Anatomical Region Laterality Modality Upper Extremities, Humerus Right Radio graphic Imaging 01/29/2025 5:42 PM EST Narrative 02/01/2025 8:15 AM EDT ? [facility] ?[address] ?[place] [address] ?XRay Report ? Signed ? Patient: Amanda Santiago ?MR#: [id number] ?? 10 ? : 1965 ?Acct:[id number] ? Age/Sex: 59 / F ?ADM Date: 01/29/25 ? Loc: HO.ED ? Attending Dr: ? Ordering Physician: Román Howard MD ?? Date of Service: 01/29/25 ?? Procedure(s): XR humerus RT ?? Accession Number(s): [id number] ? cc: Leonardo Gandhi MD; Román Howard MD ? EXAMINATION: ??XR HUMERUS [...] signed by Bill Kendrick MD in OV> ?02/01/2513 ? DD/ 1742 ? TD/TT: 01/29/25 1559 ? Combination Machine Tool Operator: ? Procedure Note Melisa, Image - 02/01/[address] [address] XRay Report Signed Patient: Amanda Santiago NMR#: [id number] 10 : 1965Acct:[id number] Age/Sex: 59 / FADM Date: 01/29/25 Loc: HO.ED Attending Dr: Ordering Physician: Román Howard MD Date of Service: 01/29/25 Procedure(s): XR humerus RT Accession Number(s): [id number] cc: Leonardo Gandhi MD; Román Howard MD [...] OV> 02/01/25 0813 DD/ 1742 TD/TT: 01/29/25 5929 Combination Machine Tool Operator: [facility] External Provider IMG XR PROCEDURES Edited Result - Final * (ABNORMAL) Hm Colonoscopy (07/07/2024 9:01 AM EDT) Colonoscopy Abnormal(A ) Normal 07/07/2024 9:01 AM EDT Leonardo Gandhi MD HEALTH MAINTENANCE Final Result * HPV mRNA E6/E7 w/Reflex to HPV Genotypes 16, 18/45 (02/26/2024 9:27 AM EDT) HPV nRNA E6/E7 Not Detected Not Detected [facility] Comment:Methodology: Transcr iption-Mediated AmplificationThis assay detects E6/E7 viral messenger RNA (mRNA) from 14high-risk HPV types (16,18,31,33,35,39,45,51,52,56,58,59,66,68).Cervical sources are required for HPV testing.If a vaginal source from a patient who has had atotal hysterectomy with removal of cervix wassubmitted, please contact the testing laboratoryfor alternative testing options.For additional information, please refer tohttp://education.[employer]/faq/EGC343s5(This link if provided for information/educational purposes only.)THIS TEST WAS PERFORMED AT:[employer] [place] [phone] BRAVO MD HPV mRNA E6/E7 [facility] HPV 16 RNA [facility] HPV 18/45 RNA [facility] 02/26/2024 9:27 AM EDT 02/27/2024 6:30 AM EDT [facility] LAB CYTOLOGY ORDERABLES F inal Result [facility] [address] [place] [phone] * Pap Smear (02/26/2024 9:27 AM EDT) Swab Cervix uteri structure / Unknown 02/26/2024 9:27 AM EDT 02/27/2024 6:30 AM EDT [facility] - 03/14/2024 4:22 PM EDT ----- ------- Name: Amanda Santiago ? Age/Sex: 58/F ? : 1965 Unit#: [id number] ?? Attend Dr: RYLEY OSEGUERA CNM ?Re02/26/24 ?Status: DEP REF ? Location: HO.LNP ?Disch: ? ----- ------- SPEC : [id number] ? RECD: 02/27/24-629 ? STATUS: ??SOUT ? REQ NUM: [id number] ? JOSSELINE: 02/26/24 ? SUBM DR: RYLEY [...] 66, 68) ? HPV testing performed by [employer], [place], [place]. ??See reference laboratory ?? portion of the EMR for entire report. ?Clinical Information LMP: Postmenopausal Previous PAP test: Unknown date/findings ? Material Received ?? ThinPrep-Cervical ----- ------- Signed (signature on file) Roxie Dasilva Alfred 03/14/24 1622 ? ----- ------- ? END OF REPORT ? Ryley [facility] LAB CYTOLOGY ORDERABLES F inal Result Performing Organization Address [facility] de Phone Number [facility] [address] [place] [phone] [phone] * Hepatitis C Ab (02/12/2024 10:43 AM EDT) [facility] Hepatitis C Antibody Nonreactive Nonreactive [facility] Comment:Antibodies to HCV no t detected; does not exclude early acuteHCV infection. Blood Venous blood specimen / Unknown 02/12/2024 10:43 AM EDT 02/12/2024 11:20 AM EDT Leonardo Gandhi MD LAB BLOOD ORDERABLES Final Resul t Performing Organization Address [facility] de Phone Number [facility] [address] [place] [phone] [phone] * (ABNORMAL) Lipid Panel, Standard (02/12/2024 10:43 AM EDT) [facility] Triglycerides 72 <150 mg/dL [facility] Comment:Desirable Triglyceri de: less than 150 mg/dLBorderline High Triglyceride 150-199 mg/dLHigh Triglyceride: 200-499 mg/dLVery High Triglyceride: greater than or equal to 5OO mg/dL Cholesterol 184 <200 mg/dL [facility] Comment:Desirable Cholestero l: less than 200 mg/dLBorderline High Cholesterol: 200-239 mg/dLHigh Cholesterol: greater than 239 mg/dL LDL Cholesterol Calculated 109(H) <100 mg/dL [facility] Comment:Desirable LDL: less than 100 mg/dLNear Optimal/Above Optimal LDL: 110- 129 mg/dLBorderline High LDL: 130-159 mg/dLHigh LDL: 160-189 mg/dLVery High LDL: greater than or equal to 190 mg/dL HDL Cholesterol 61 >40 mg/dL [facility] Comment:Desirable HDL: great er than 40 mg/dL Note: This HDL assay may give artificially low results in patients with liver disease. Blood Venous blood specimen / Unknown 02/12/2024 10:43 AM EDT 02/12/2024 11:20 AM EDT us Leonardo Gandhi MD LAB BLOOD ORDERABLES Final Resul t [facility] [address] [place] [phone] [phone] from Last 3 Months or Most Recently Relevant to Health Maintenance Insurance [facility] ONE CARE < [address] [place] [id number] Care Teams Websphere Commerce Consultant Relationship Specialty Start Date End Date Name, MD Leonardo [address] [place] [address] PCP - General Family Medicine 08/04/19
--- OUTSIDE RECORDS SUMMARY | 2025-04-07 14:01 | XMS_ITS | Encounter Summary ---
Author Organization [employer] Address [address] [facility] 7t [place] [address] Care Team Providers Care Stranding Supervisor Name Role Phone Name, Leonardo LAYNE Primary Care Provider [phone] Encounter Details Date Type Department Care Team (Late st Contact Info) Description 05/08/2023 Abstract [facility] MEDICINE [address] [place] [address] Name, MD Leonardo [address] [place] [address] Social History Tobacco Use Types Packs/Day Years [...] on filedocumented in this encounter Care Teams Stranding Supervisor Relationship Specialty Start Date End Date Name, MD Leonardo [address] [place] [address] PCP - General Family Medicine 08/04/19 documented as of this encounter
--- NOTE | 2025-04-07 14:06 | MHC.OFFVIS ---
Intake Visit Reasons: OV- RT humeral shaft fx, DOI 01/29/25 Intake Note: Amanda is a 59 year old right hand dominant female who presents today for follow up of humerus fx, DOI: 01/29/25. At patient last visit on 02/24/25 she was instructed to wear humerus brace at all times, refrain from lifting activities, and follow up in office with new x-rays in 6 weeks. Today patient reports she is doing a lot better, states her pain is improving. Allergies ibuprofen Allergy (Unknown, Verified 04/07/25 14:10) kidney problems Medication List - Last Reconciled 04/07/25 by Bryon Stroud PA-C acetaminophen ER 650 mg PO TID [Adult Diaper As directed] amlodipine 10 mg PO DAILY lisinopril-hydrochlorothiazide 20-12.5 mg 1 tab PO DAILY pantoprazole 1 tab PO DAILY HPI HPI OV- RT humeral shaft fx, DOI 01/29/25: Details: 60-year-old female returns to the office today 6 weeks status post right humeral shaft fracture date of injury 01/29/2025. She continues to wear her humerus brace and states her pain has significantly improved. No concerns today. [facility] Medical History Kidney stones GERD (gastroesophageal reflux disease) HTN (hypertension) Surgical History Hx of cystoscopy History of esophagogastroduodenoscopy (EGD) Hx of colonoscopy History of surgery on right wrist History of surgery H/O left wrist surgery Status post total hip replacement, right Family History Mother Cancer Father Diabetes mellitus, type II Brother Diabetes Social History Household Members: Family Household Members Other:: youngest brother, oldest granson, daughter (duplex) Housing: House Do you presently have visiting nurse or other home services: No Alcohol intake: current Alcohol intake frequency: does not drink Patient Tobacco Use Status: Never used Tobacco service: No Current occupational status: disabled Current occupation: rt handed Review of Systems Const All systems reviewed & are unremarkable except as noted in HPI and below Physical Exam Const General: cooperative and no acute distress Orientation/consciousness: patient oriented x3 Resp Effort & Inspection: normal respiratory effort and able to speak in complete sentences Cardio Peripheral pulses: Peripheral pulses 2+ throughout Neuro General: patient oriented x3 Extrem Other: Right humerus skin is intact. No swelling. No bony abnormality. No tenderness to palpation over the fracture site. Results Reviewed Results Reviewed: X-rays of the right humerus obtained in the office today and reviewed by me show stable fracture pattern with significant callus formation Assessment & Plan Assessment & Plan (1) Fracture of humeral shaft, right, closed: Code(s): S42.301A - Unspecified fracture of shaft of humerus, right arm, initial encounter for closed fracture Category: Medical Qualifiers: Encounter type: subsequent encounter Fracture healing: with routine healing Fracture morphology: unspecified fracture morphology Qualified Code(s): S42.301D - Unspecified fracture of shaft of humerus, right arm, subsequent encounter for fracture with routine healing Plan: Patient can discontinue the use of her brace today. I did strongly encourage her to avoid any type of lifting more than a coffee cup. She can work on gentle shoulder and elbow range of motion and periscapular stabilization. An order for physical therapy has been placed so she can work on this. No strength exercises on the upper extremity and she should not perform any weight-bearing activities until 3 months from date of injury. I stressed the importance of using caution when she is out of the house to avoid falling. She will see me back in 6-8 weeks with x-rays, sooner if needed. Orders: Orders XR humerus RT Today S42.301A - Unspecified fracture of shaft of humerus, right arm, initial encounter for closed fracture PT Evaluation and Treatment Today S42.301D - Unspecified fracture of shaft of humerus, right arm, subsequent encounter for fracture with routine healing Coding Level of Care Code Global (73109) Diagnoses Closed fracture of shaft of right humerus with routine healing, unspecified fracture morphology, subsequent encounter S42.301D Encounter type: subsequent encounter Fracture healing: with routine healing Fracture morphology: unspecified fracture morphology
== END 2025-04-07 14:19 | disposition home or self-care (01) ==
LOC: HO.HOS 13:56
PROVIDERS: Visit Provider Physician Assistant
DX: S42.301D Unspecified fracture of shaft of humerus, right arm, subsequent encounter for fracture with routine healing (principal)
CPT/HCPCS: 99213

== ENCOUNTER → 2025-04-07 13:58 | Outpatient (BNV) | payer OTHER, SELFPAY | PROVIDERS: PCP Internal Medicine Geriatric Medicine; Visit Provider Radiology Diagnostic Radiology | DX: S42.301D Unspecified fracture of shaft of humerus, right arm, subsequent encounter for fracture with routine healing (principal) | CPT/HCPCS: 73060 ==

== ENCOUNTER 2025-04-27 14:05 | Outpatient (RCR) | payer OTHER, SELFPAY ==
--- NOTE | 2025-04-15 15:54 | MHC.OT.EP ---
[address] [phone] Occupational Therapy Plan of Care Patient Name: Amanda Santiago Date of Evaluation: 04/15/25 Diagnosis: fx: shaft of humerus R UE Pain Location: w/ use the pain the gets to be a 7/10 Pain Score: 5 Pain Scale Used: Numeric (0 - 10) Aggravating Factors: Alleviating Factors: Tylenol Assessment: Pt is a 59 yr old R hand dominant female who fx her R humeral shaft on 01/29/25 when she fell going down the steps at her house. Pt has a weak knee and she felt her knee give out and fell w/ her R UE underneath her. She took an ambulance to [facility] [place] [facility] ED and had X-rays taken, was diagnosed and was placed in a shoulder brace and sling. Pt reports wearing these for a few weeks (6 weeks) and was d/charged from them when she followed up w/ ortho. Pt saw the MD on 04/07 and pt reports concern for decreased ROM and strength of her R UE. Pt was referred to skilled OT therapy to address these concerns/deficits. Pt would benefit from skilled OT therapy to increase ROM, strength, and functional use of her R UE Frequency and Duration: The patient will be seen 2XS A WEEK FOR 6 WEEKS Short Term Goals: Pt will adhere to her HEP Pt will increase R shoulder flexion pain free to 165 Pt will increase R shoulder abduction to 150 pain free Detention Goals: Pt will report using her R UE to don her shirt w/out difficulty Pt will report being able to use her R UE to don her bra w/out difficulty Pt will use her R UE to carry groceries w/ out pain (2 bags less than 6 lbs) Treatment Plan: Therapeutic Exercise Therapeutic Activity Home Exercise Program Neuro Re-ed Patient Education Desensitization/Sensory Re-ed Edema Control ADL Training Ultrasound NMES Iontophoresis Paraffin MHP Cold Packs Joint Mobilization Soft Tissue Mobilization Kinesiotaping Electronically Signed By: Tamiko Varela OTR/L Please Sign and return to therapist. Thank you once again for your referral.
== END 2025-06-15 16:16 | disposition home or self-care (01) ==
LOC: HO.OT 14:05
PROVIDERS: PCP Internal Medicine Geriatric Medicine; Visit Provider Physician Assistant
DX: S42.301D Unspecified fracture of shaft of humerus, right arm, subsequent encounter for fracture with routine healing (principal)
CPT/HCPCS: 97110; 97140; 97166; 97535

== ENCOUNTER 2025-06-02 13:18 | Outpatient (REF) | payer OTHER, SELFPAY ==
--- NOTE | ~2025-06-02 | XR_ITS ---
EXAMINATION: XR HUMERUS RIGHT HISTORY: S42.301A - Unspecified fracture of shaft of humerus, right arm, initial ... COMPARISON: Comparison is made with the prior examination dated 04/07/2025. FINDINGS: AP and lateral views of the right humerus are submitted. Osseous mineralization is normal. Again seen is a fractures of the midshaft of the humerus. There is greater callus formation noted, consistent with healing. The fracture line remains visible. The visualized portions of the shoulder and elbow joint spaces are preserved. The soft tissues are unremarkable. XR/XR humerus RT IMPRESSION: Healing fracture of the midshaft of the right humerus. Electronically signed by: Bill Kendrick MD 06/02/2025 02:59 PM EDT
--- OUTSIDE RECORDS SUMMARY | 2025-06-02 14:08 | XMS_ITS | Encounter Summary ---
Author Organization [employer] Address [address] [facility] 7[address] [place] [address] Care Team Providers Care Real Estate Investor Name Role Phone NameLeonardo MD Primary Care Provider [phone] Encounter Details Date Type Department Care Team (Late st Contact Info) Description 05/08/2023 Abstract [facility] MEDICINE [address] [place] [address] Name, MD Leonardo [address] [place] [address] Social History Tobacco Use Types Packs/Day Years [...] on filedocumented in this encounter Care Teams Real Estate Investor Relationship Specialty Start Date End Date NameLeonardo MD [address] [place] [address] PCP - General Family Medicine 08/04/19 documented as of this encounter
== END 2025-06-02 13:19 | disposition home or self-care (01) ==
LOC: HO.HOSX 13:18
PROVIDERS: Visit Provider Physician Assistant
DX: S42.301D Unspecified fracture of shaft of humerus, right arm, subsequent encounter for fracture with routine healing (principal); R20.2 Paresthesia of skin; R20.0 Anesthesia of skin
CPT/HCPCS: 73060; 99212

== ENCOUNTER 2025-06-02 14:27 | Outpatient (AMB) | payer OTHER, SELFPAY ==
--- NOTE | 2025-06-02 14:39 | A.OFFVIS_ITS ---
Intake Visit Reasons: OV- RT humeral shaft fx, DOI 01/29/25-follow up Intake Note: Amanda is a 60 year old female who presents today for a follow up of the right humeral shaft fx, DOI 01/29/25. Patient reports that she does have numbness in the fingers. Patient states no physical therapy or injections. She added that she does take Tylenol as needed, mild relief. Allergies ibuprofen Allergy (Unknown, Verified 06/02/25 14:42) kidney problems HPI HPI OV- RT humeral shaft fx, DOI 01/29/25-follow up: Details: 60-year-old female returns to the office today 4 months status post right ever ral shaft fracture date of injury 01/29/2025. She did a few visits of occupational therapy and feels comfortable doing exercises on her own. She denies pain in the shoulder or the humerus region. She does however complain of numbness and tingling in the right hand which may be associated to an old surgery she had. [facility] Medical History Kidney stones GERD (gastroesophageal reflux disease) HTN (hypertension) Surgical History Hx of cystoscopy History of esophagogastroduodenoscopy (EGD) Hx of colonoscopy History of surgery on right wrist History of surgery H/O left wrist surgery Status post total hip replacement, right Family History Mother Cancer Father Diabetes mellitus, type II Brother Diabetes Social History Household Members: Family Household Members Other:: youngest brother, oldest granson, daughter (duplex) Housing: House Do you presently have visiting nurse or other home services: No Alcohol intake: current Alcohol intake frequency: does not drink Patient Tobacco Use Status: Never used Tobacco service: No Current occupational status: disabled Current occupation: rt handed Review of Systems Const All systems reviewed & are unremarkable except as noted in HPI and below Physical Exam Const General: cooperative and no acute distress Orientation/consciousness: patient oriented x3 Resp Effort & Inspection: normal respiratory effort and able to speak in complete sentences Cardio Peripheral pulses: Peripheral pulses 2+ throughout Neuro General: patient oriented x3 Extrem Other: Right humerus skin is intact. No swelling. No bony abnormality. No tenderness to palpation over the fracture site. Right wrist surgical scar present. No swelling. Positive Tinel's. Results Reviewed Results Reviewed: X-rays of the right humerus obtained in the office today and reviewed by me show stable fracture pattern with significant callus formation Assessment & Plan Assessment & Plan (1) Fracture of humeral shaft, right, closed: Code(s): S42.301A - Unspecified fracture of shaft of humerus, right arm, initial encounter for closed fracture Category: Medical Qualifiers: Encounter type: subsequent encounter Fracture morphology: unspecified fracture morphology Fracture healing: with routine healing Qualified Code(s): S42.301D - Unspecified fracture of shaft of humerus, right arm, subsequent encounter for fracture with routine healing Plan: The patient will continue to increase activities as tolerated. I did recommend a course of physical therapy if she wanted to work on shoulder strength and scap stabilization however she declined and feels comfortable working on this on her own. I did order an EMG/nerve conduction study to further evaluate the etiology of her numbness in the right hand. Once this study is complete I can determine whether or not she will benefit from a referral with hand surgery. As for the right humerus she can follow up with me as needed. Orders: Orders XR humerus RT Today S42.301A - Unspecified fracture of shaft of humerus, right arm, initial encounter for closed fracture NE nerve conduction velocity Today R20.0 - Anesthesia of skin, R20.2 - Paresthesia of skin NE electromyogram (EMG) Today R20.0 - Anesthesia of skin, R20.2 - Paresthesia of skin Coding Level of Care Code Est Pt Level 3 (55854) Complex EM visit Add On G2211 Diagnoses Closed fracture of shaft of right humerus with routine healing, unspecified fracture morphology, subsequent encounter S42.301D Encounter type: subsequent encounter Fracture morphology: unspecified fracture morphology Fracture healing: with routine healing
== END 2025-06-02 15:11 | disposition home or self-care (01) ==
LOC: HO.HOS 14:28
PROVIDERS: PCP Internal Medicine Geriatric Medicine; Visit Provider Physician Assistant
DX: S42.301D Unspecified fracture of shaft of humerus, right arm, subsequent encounter for fracture with routine healing (principal)
CPT/HCPCS: 99213; G2211

== ENCOUNTER → 2025-06-02 14:34 | Outpatient (BNV) | payer OTHER, SELFPAY | PROVIDERS: Visit Provider Radiology Diagnostic Radiology | DX: S42.301A Unspecified fracture of shaft of humerus, right arm, initial encounter for closed fracture (principal) | CPT/HCPCS: 73060 ==

== ENCOUNTER 2025-08-04 14:28 | Outpatient (REF) | payer OTHER, SELFPAY ==
--- NOTE | 2025-08-04 14:31 | EMG_ITS ---
Chief complaint: Right humeral shaft fracture and wrist fracture after a fall in January 2025. Noted numbness on right dorsal and ventral hand 2 weeks after. No wrist drop on exam today. Reason for referral: Evaluate for nerve entrapment Referred by: Sabina SOTO Procedure done: Right upper extremity NCS/EMG Precautions and/or limitations: None The limb temperature was monitored continuously and remained between 32-36 degrees C during the performance of the NCS. Nerve Conduction Studies Anti Sensory Summary Table ?Stim Site NR Onset (ms) Norm Onset (ms) Peak (ms) Norm Peak (ms) O-P Amp (?V) Norm O-P Amp Site1 Site2 Delta-0 (ms) Dist (cm) Lyndon (m/s) Norm Lyndon (m/s) Right Med Ante Brach Cutan Anti Sensory (Med Forearm) Elbow ? 2.1 2.5 20.9 Elbow Med Forearm 2.1 0.0 Right Median Anti Sensory (2nd Digit) Wrist ? 1.8 2.9 <3.6 36.9 >10 Wrist 2nd Digit 1.8 14.0 78 Right Radial Anti Sensory (Thumb) Forearm ? 1.6 2.1 <3.1 17.0 Forearm Thumb 1.6 0.0 Right Ulnar Anti Sensory (5th Digit) Wrist ? 2.4 3.0 <3.7 24.9 >15.0 Wrist 5th Digit 2.4 14.0 58 Motor Summary Table ?Stim Site NR Onset (ms) Norm Onset (ms) O-P Amp (mV) Norm O-P Amp iAmp (mV) Amp (1st) (%) Site1 Site2 Delta-0 (ms) Dist (cm) Lyndon (m/s) Norm Lyndon (m/s) Right Median Motor (Abd Poll Brev) Wrist ? 3.3 <3.9 8.4 >4.5 10.1 100.0 Elbow Wrist 3.2 17.0 53 >45 Elbow ? 6.5 7.8 9.5 92.9 Right Radial Motor (Arm) Wrist ? 0.9 <2.5 4.0 >1.7 4.9 100.0 Wrist Arm 0.9 15.0 167 Mid Forearm ? 3.7 3.9 5.0 97.5 Mid Forearm Wrist 2.8 13.0 46 >60 Elbow ? 5.7 1.3 1.7 32.5 Elbow Mid Forearm 2.0 0.0 Right Ulnar Motor (Abd Dig Minimi) Wrist ? 2.8 <3.0 12.0 >5 14.7 100.0 B Elbow Wrist 2.9 17.0 59 >45 B Elbow ? 5.7 11.1 14.1 92.5 A Elbow B Elbow 1.0 10.0 100 >45 A Elbow ? 6.7 10.3 13.2 85.8 EMG ?Side Muscle Nerve Root Ins Act Fibs Psw Amp Dur Poly Recrt Int Pat Comment Right 1stDorInt Ulnar C8-T1 Nml Nml Nml Nml Nml 0 Nml Complete Right FlexCarRad Median C6-7 Nml Nml Nml Nml Nml 0 Nml Complete Right Biceps Musculocut C5-6 Nml Nml Nml Nml Nml 0 Nml Complete Right Triceps Radial C6-7-8 Nml Nml Nml Nml Nml 0 Nml Complete Right Deltoid Axillary C5-6 Nml Nml Nml Nml Nml 0 Nml Complete Right BrachioRad Radial C5-6 Incr 1+ 1+ Nml Nml 0 Nml Complete Right ExtIndicis Radial (Post Int) C7-8 Nml Nml Nml Nml Nml 0 Reduced Complete Paraspinal EMG ?Side Muscle Nerve Root Ins Act Fibs Psw Comment Right Cervical Upper Rami Nml Nml Nml Right Cervical Mid Rami Nml Nml Nml Right Cervical Lower Rami Nml Nml Nml FINDINGS: Right radial motor nerve showed normal distal latency, drop in amplitude amplitude at spiral groove and slow conduction velocity between elbow and spiral groove. Significant conduction block. All other nerves tested were within normal. Concentric needle EMG was performed in selected muscles of the right upper extremity and cervical paraspinals. Study revealed signs of electric abnormalities as shown in the table above. Right brachioradialis showed increased insertional activity, PSWs and fibrillations. Right extensor indices showed reduced recruitment. IMPRESSION: 1. This is an abnormal study. 2. 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 3. There is no electrodiagnostic evidence for median neuropathy, ulnar neuropathy, brachial plexopathy, or cervical radiculopathy. CLINICAL COMMENT: Consider OT to strengthen wrist flexors, prevent weakness. Thank you for your kind referral. Sanna Wood MD, ROYCE Board Certified, [place] Board of [employer] Medicine and Rehabilitation (ABPMR) Board Certified, [place] Board of Electrodiagnostic Medicine (ABEM) CODIN [id number] JEFF
--- OUTSIDE RECORDS SUMMARY | 2025-08-04 17:46 | XMS_ITS | Clinical Summary ---
Author Organization [facility] Address [address] [place] [address] Phone Care Team Providers Care Postal Supervisor Name Role Phone Pcp, Unknown Primary Care Provider Unavailabl e Allergies No known active allergies Medications lisinopril (PRINIVIL,ZESTR IL) 10 MG tablet Take 10 mg by mouth daily. Active oxyCODONE 5 MG immediate release tablet Take 1 tablet (5 mg total) by mouth every 4 (four) hours as needed for moderate pain. Partial fill ok 10 tablet 07/03/2022 Active Social History Tobacco Use Types Packs/Day Years Used Date Smoking Tobacco: Never Assessed Education Answer Date Recorded Are you interested in more education? Not on walker e 03/23/2023 Are you concerned about learning? Not on file 03/23/2023 No 03/23/2023 No 03/23/2023 Digital Access Answer Date Recorded No 04/23/2023 No 04/23/2023 Reliable internet access at home? Not on file 04/23/2023 Device with a working camera? Not on file Comments Unknown Sex and Gender Information Value Date Recorded Sex Assigned at Not on file Legal Sex Female 8:02 PM EDT Gender Identity Not on file Sexual Orientation Not on file Last Filed Vital Signs Vital Sign Reading Time Taken Comments Blood Pressure 142/83 07/03/2022 3:03 AM EDT Pulse 77 07/03/2022 3:03 AM EDT Temperature 37 C (98.6 F) 07/03/2022 3:03 AM EDT Respiratory Rate 18 07/03/2022 3:03 AM EDT Oxygen Saturation 98% 07/03/2022 3:03 AM EDT Inhaled Oxygen Concentration - - Weight 99.8 kg (220 lb) 07/03/2022 3:03 AM EDT Height 160 cm (5' 3 ) 07/03/2022 3:03 AM EDT Body Mass Index 38.97 07/03/2022 3:03 AM EDT Plan of Treatment Health Maintenance Due Date Last Done Comments Adult Td,Tdap Booster 1963 CREATININE LEVEL 1963 LIPID PANEL 1963 POTASSIUM LEVEL 1963 DEPRESSION SCREENING 1975 SMOKING Hx and SMOKELESS TOB ACCO SCREENING 1976 HEPATITIS C SCREENING 1981 HIV ONE-TIME SCREENING (18-6 5 YEARS) 1981 PAP SMEAR 1984 MAMMOGRAM 2003 COLOGUARD 2008 COLONOSCOPY 2008 COLORECTAL CANCER SCREENING 2008 FIT TEST 2008 FOBT 2008 SIGMOIDOSCOPY 2008 VIRTUAL COLONOSCOPY 2008 PNEUMOCOCCAL VACCINES (50+ y ears) (1 of 1 - PCV) 2013 ZOSTER VACCINES (1 of 2) 2013 INFLUENZA VACCINE (#1) 2025 COVID-19 VACCINE (1 - 2023-2 5 season) 2025 RSV VACCINE (1 - 1-dose 75+ series) 2038 HEPATITIS A VACCINES Aged Out No long er eligible based on patient's age to complete this topic HIB VACCINES Aged Out No longer eligi ble based on patient's age to complete this topic MENINGOCOCCAL VACCINES (ACWY) Aged Out No longer eligible based on patient's age to complete this topic MENINGOCOCCAL VACCINES (B) Aged Out N o longer eligible based on patient's age to complete this topic Medical Devices Not on file Insurance MEDICARE PART A & B [employer] Care Teams Postal Supervisor Relationship Specialty Start Date End Date Pcp, Unknown PCP - General 07/02/22 Additional Source Comments The information contained in this document represents components of the legal health record. It is not the complete legal health record.[facility]
--- OUTSIDE RECORDS SUMMARY | 2025-08-04 17:46 | XMS_ITS | Encounter Summary ---
Author Organization [email or web address] Address [address] [facility] [address] [place] [address] Care Team Providers Care Separator Operator Shellfish Meats Name Role Phone NameLeonardo MD Primary Care Provider [phone] Encounter Details Date Type Department Care Team (Late st Contact Info) Description 05/08/[address] [facility] MEDICINE [address] [place] [address] Name, MD Leonardo [address] [place] [address] Social History Tobacco Use Types Packs/Day Years [...] on filedocumented in this encounter Care Teams Separator Operator Shellfish Meats Relationship Specialty Start Date End Date NameLeonardo MD [address] [place] [address] PCP - General Family Medicine 08/04/19 documented as of this encounter
--- OUTSIDE RECORDS SUMMARY | 2025-08-04 17:46 | XMS_ITS | Encounter Summary ---
Author Organization [facility] Address [address] [place] [address] Phone Care Team Providers Care Timber Selector Name Role Phone Pcp, Unknown Primary Care Provider Unavailabl e Encounter Details Date Type Department Care Team (Late st Contact Info) Description 07/02/2022 Procedure Pass [facility], Ct Scan - [facility] [address] [place] [address] Social History Tobacco Use Types Packs/Day Years Used Date Smoking Tobacco: Never Assessed Comments Unknown Sex and Gender Information Value Date Recorded Sex Assigned at Not on file Legal Sex Female 8:02 PM EDT Gender Identity Not on file Sexual Orientation Not on file documented as of this encounter Functional Status * Calculated C-SSRS Risk Score (Lifetime/Recent) Answer Date of Assessment Author No Risk Indicated 07/02/2022 8:08 PM EDT Kirsten Matta RN * [place] Suicide Severity Rating Scale (Screener/Recent Self-Report) Question Answer Date of Assessment Author 1. Wish to be (Past 1 Month) No 07/02/2022 8:08 PM EDT Kirsten Gonzalez RN 2. Non-Specific Active Suicidal Thoughts (Past 1 Month) No 07/02/2022 8:08 PM EDT Kirsten Gonzalez RN 6. Suicidal Behavior (Lifetime) No 07/02/2022 8:08 PM EDT Kirsten Gonzalez RN documented as of this encounter Plan of Treatment Not on file documented as of this encounter Visit Diagnoses Not on filedocumented in this encounter Care Teams Timber Selector Relationship Specialty Start Date End Date Pcp, Unknown PCP - General 07/02/22 documented as of this encounter Additional Source Comments The information contained in this document represents components of the legal health record. It is not the complete legal health record.[facility]
--- OUTSIDE RECORDS SUMMARY | 2025-08-04 17:46 | XMS_ITS | Clinical Summary ---
Author Organization [employer] Address [address] [facility] [address] [place] [address] Care Team Providers Care Machine Sizer Name Role Phone Name, Leonardo LAYNE Primary Care Provider [phone] Allergies Active Allergy Reactions Criticality Noted Date [...] THE MORNING 90 tablet 3 4 Active Diclofenac Sodium 1 % gelIndications:H ypertension, unspecified type,Impaired fasting glucose,Screenin g for cholesterol level,Chronic pain of right knee APPLY 4 GRAMS TO affected KNEE EVERY DAY 100 g 1 5 Active pantoprazole (ProtoNix) 40 MG EC tabletIndication s:Hypertension, unspecified type,Impaired fasting glucose,Gastroes ophageal reflux disease, unspecified whether esophagitis present,Screenin g for cholesterol level,Chronic pain of right knee TAKE 1 TABLET BY MOUTH EVERY DAY 90 tablet 5 Active Active Problems Problem Noted Date Diagnosed [...] Encounters Date Type Department Care Team Description 06/14/2025 Telephone [facility] [address] [place], [place] [phone] Name, MD Leonardo Med Refill 06/14/2025 Refill [facility] [address] [place] [address] Name, MD Leonardo Hypertension, unspecified type; Impaired fasting [...] 103 01/12/2025 11:27 AM EST Temperature 36.2 C (97.2 F) 01/12/2025 11:27 AM EST Respiratory Rate 21 01/12/2025 11:27 AM EST [...] FOBT 1965 HIV Screening 1965 Sigmoidoscopy 1965 Disability Screening 1965 Alcohol/Substance Use Screening 1975 Hepatitis B Vaccines (2 of 3 - 19+ 3-dose series) 04/01/2012 03/04/2012 Pneumococcal Vaccine: 50+ Years (1 of 1 - PCV) 2013 Depression Screening 02/11/2025 02/12/2024, 02/12/20 SDOH Screening 02/11/2025 02/12/2024 COVID-19 Vaccine ( season) 2025 11/28/2023, 01/28/2023, 07/18/2022, Additional history exists Influenza Vaccine (#1) 2025 , 10/30/2021, 10/06/2020, Additional history exists Tobacco Screening 01/12/2026 01/12/2025 Pap Smear 02/25/2027 02/26/2024 Mammogram 03/24/2027 03/24/2025, 0402/2024, 02/12/2022, Additional history exists Colonoscopy 07/07/2027 07/07/2024 [...] patient's age to complete this topic Meningococcal B Vaccine Aged Out No l onger eligible based on patient's age to complete [...] TOMOSYNTHESIS BILATERAL Routine 03/24/2025 12:00 PM EDT HM COLONOSCOPY Routine 07/07/2024 9:01 AM EDT [...] PM EDT Narrative 03/29/2025 5:27 PM EDT [facility] [address] [place] [address] Mammography Report Signed Patient: Amanda Santiago MR#: [id number] 10 : 1965 Acct:[id number] Age/Sex: 59 / F ADM Date: 03/24/25 Loc: [facility] Attending Dr: Leonardo Gandhi MD Ordering Physician: Leonardo Gandhi MD Results: 1Negative Date of Service: 03/24/25 Follow Up: 1 Year From Orig inal Mammogram Procedure(s): MM tomosynthesis screening BI Accession Number(s): [id number] cc: Leonardo Gandhi MD EXAMINATION: MM SCREENING [...] Barbara Hughes DO 03/29/2025 05:25 PM EDT RP Dictated By: Barbara Hughes DO Signed By: <Electronically signed by Barbara Hughes DO in OV> 03/29/25 1725 DD/ 1200 TD/TT: 03/24/25 1226 Bulb Filler: Procedure Note Donjanee, Image - 03/29/2025 [facility] [address] [place] [address] Mammography Report Signed Patient: Amanda Santiago [facility]#: [id number] 10 : 1965Acct:[id number] Age/Sex: 59 / FADM Date: 03/24/25 Loc: HO.MAMMO Attending Dr: Leonardo Gandhi MD Ordering Physician: Leonardo Gandhi MDResults: 1Negative Date of Service: 03/24/25Follow Up: 1 Year From Orig inal Mammogram Procedure(s): MM tomosynthesis screening BI Accession Number(s): [id number] cc: Leonardo Gandhi MD EXAMINATION: MM SCREENING [...] Barbara Hughes DO 03/29/2025 05:25 PM EDT RP Dictated By: Barbara Hughes DO Signed By: <Electronically signed by Barbara Hughes DO in OV> 03/29/25 1725 DD/ 1200 TD/TT: 03/24/25 1226 Bulb Filler: us Leonardo Gandhi MD IMG BI PROCEDURES Final Result * (ABNORMAL) Hm Colonoscopy (07/07/2024 9:01 AM EDT) Colonoscopy Abnormal(A ) Normal 07/07/2024 9:01 AM EDT us Leonardo Gandhi MD HEALTH MAINTENANCE Final Result * HPV mRNA E6/E7 w/Reflex to HPV Genotypes 16, 18/45 (02/26/2024 9:27 AM EDT) HPV nRNA E6/E7 Not Detected Not Detected [facility] Comment:Methodology: Transcr iption-Mediated AmplificationThis assay detects E6/E7 viral messenger RNA (mRNA) from 14high-risk HPV types (16,18,31,33,35,39,45,51,52,56,58,59,66,68).Cervical sources are required for HPV testing.If a vaginal source from a patient who has had atotal hysterectomy with removal of cervix wassubmitted, please contact the testing laboratoryfor alternative testing options.For additional information, please refer [email or web address](This link if provided for information/educational purposes only.)THIS TEST WAS PERFORMED AT:[facility] [place] [id number] BRAVO MD HPV mRNA E6/E7 TNP [facility] HPV 16 RNA TNP [facility] HPV 18/45 RNA TNP [facility] 02/26/2024 9:27 AM EDT 02/27/2024 6:30 AM EDT Ryley Oseguera CNM LAB CYTOLOGY ORDERABLES F inal Result [facility] [address] [place] [phone] * Pap Smear (02/26/2024 9:27 AM EDT) Swab Cervix uteri structure / Unknown 02/26/2024 9:27 AM EDT 02/27/2024 6:30 AM EDT Narrative [facility] - 03/14/2024 4:22 PM EDT ----- ------- Name: Amanda Santiago Age/Sex: 58/F : 1965 Unit#: [id number] Attend Dr: RYLEY OSEGUERA CNM Re02/26/24 Status: DEP REF Location: [facility] Disch: ----- ------- SPEC : [id number] RECD: 02/27/24 STATUS: NIKHIL BHATT NUM: [id number] JOSSELINE: 02/26/[address] [facility] [address]: RYLEY OSEGUERA CNM ENTERED: 02/27/24 SP TYPE: Pap Smr OTHR DR: ORDERED: Pap Smear Interpretation Satisfactory for evaluation. No endocervical cells seen. Negative for intraepithelial lesion or malignancy. HPV mRNA E6/E7: NOT DETECTED This assay detects E6/E7 viral messenger RNA (mRNA) from 14 high-risk HPV types (16, 18, 31, 33, 35, 39, 45, 51, 52, 56, 58, 59, 66, 68) HPV testing performed by [facility], [place], [place]. See reference laboratory portion of the EMR for entire report. Clinical Information LMP: Postmenopausal Previous PAP test: Unknown date/findings Material Received ThinPrep-Cervical ----- ------- Signed (signature on file) Roxie Simon 03/14/24 1622 ----- ------- END OF REPORT Ryley Oseguera CNM LAB CYTOLOGY ORDERABLES F inal Result Performing Organization Address City/[facility]/ZIP Co de Phone Number [facility] [address] [place] [phone] * Hepatitis C Ab (02/12/2024 10:43 AM EDT) Hepatitis C Antibody Nonreactive Nonreactive [facility] Comment:Antibodies to HCV no t detected; does not exclude early acuteHCV infection. Blood Venous blood specimen / Unknown 02/12/2024 10:43 AM EDT 02/12/2024 11:20 AM EDT us Leonardo Gandhi MD LAB BLOOD ORDERABLES Final Resul t Performing Organization Address [facility] Co de Phone Number [facility] [address] [place] [phone] * (ABNORMAL) Lipid Panel, Standard (02/12/2024 10:43 AM EDT) Triglycerides 72 <150 mg/dL [facility] Comment:Desirable Triglyceri de: less than 150 mg/dLBorderline High Triglyceride 150-199 mg/dLHigh Triglyceride: 200-499 mg/dLVery High Triglyceride: greater than or equal to 5OO mg/dL Cholesterol 184 <200 mg/dL [facility] Comment:Desirable Cholestero l: less than 200 mg/dLBorderline High Cholesterol: 200-239 mg/dLHigh Cholesterol: greater than 239 mg/dL LDL Cholesterol Calculated 109(H) <100 mg/dL [facility] Comment:Desirable LDL: less than 100 mg/dLNear Optimal/Above Optimal LDL: 110- 129 mg/dLBorderline High LDL: 130-159 mg/dLHigh LDL: 160-189 mg/dLVery High LDL: greater than or equal to 190 mg/dL HDL Cholesterol 61 >40 mg/dL [facility] Comment:Desirable HDL: great er than 40 mg/dL Note: This HDL assay may give artificially low results in patients with liver disease. Blood Venous blood specimen / Unknown 02/12/2024 10:43 AM EDT 02/12/2024 11:20 AM EDT us Leonardo Gandhi MD LAB BLOOD ORDERABLES Final Resul t [facility] [address] [place] [phone] from Last 3 Months or Most Recently Relevant to Health Maintenance Insurance [facility] < [address] [place] [id number] Care Teams Machine Sizer Relationship Specialty Start Date End Date Name, MD Leonardo [address] [place] [address] PCP - General Family Medicine 08/04/19
--- OUTSIDE RECORDS SUMMARY | 2025-08-04 17:46 | XMS_ITS | Encounter Summary ---
Author Organization [employer] Address [address] [facility] [address] [place] [address] Care Team Providers Care Counter Dish Carrier Name Role Phone NameLeonardo MD Primary Care Provider [phone] Reason for Visit * Reason Onset Date Comments Med Refill 06/14/2025 Encounter Details Date Type Department Care Team ([facility] st Contact Info) Description 06/14/2025 Telephone [facility] [address] [place] [address] Name, MD Leonardo [address] [place] [address] Med Refill Social History Tobacco Use Types Packs/Day Years [...] encounter Miscellaneous Notes * Telephone Encounter - Anat Srinivasan LPN - 06/14/2025 10:42 AM EDT Medication pended to PCP. * Telephone Encounter - Erinn Richard - 06/14/2025 10:26 AM EDT TC from pt requesting medication refill. Medications needing refill : - pantoprazole (ProtoNix) 40 MG EC tablet To be sent to: - [facility] - [place], [place] - [address] [place] [address] documented in this encounter Plan of Treatment Not on file documented as of this encounter Visit Diagnoses Not on filedocumented in this encounter Additional Health Concerns Assessment Noted Time PHQ-9 Depression Total Score: 0 02/12/20 24 9:39 AM EDT documented as of this encounter Care Teams Counter Dish Carrier Relationship Specialty Start Date End Date Name, MD Leonardo [address] [facility] [place] [address] PCP - General Family Medicine 08/04/19 documented as of this encounter
--- OUTSIDE RECORDS SUMMARY | 2025-08-04 17:46 | XMS_ITS | Encounter Summary ---
Author Organization [employer] Address [address] [facility] [address] [place] [address] Care Team Providers Care Asbestos Removal Supervisor Name Role Phone Name, Leonardo LAYNE Primary Care Provider [phone] Encounter Details Date Type Department Care Team ([facility] st Contact Info) Description 11/22/2022 Telephone [facility] [address] [place], [place] [phone] Name, MD Leonardo [address] [place] [address] Social History Tobacco Use Types Packs/Day Years [...] on filedocumented in this encounter Care Teams Asbestos Removal Supervisor Relationship Specialty Start Date End Date Name, MD Leonardo [address] [place], [place] [phone] PCP - General Family Medicine 08/04/19 documented as of this encounter
== END 2025-08-04 14:29 | disposition home or self-care (01) ==
LOC: HO.NEURO 14:28
PROVIDERS: PCP Internal Medicine Geriatric Medicine; Visit Provider Physician Assistant
DX: R20.0 Anesthesia of skin (principal); R20.2 Paresthesia of skin; R94.138 Abnormal results of other function studies of peripheral nervous system
CPT/HCPCS: 95886; 95910

== ENCOUNTER → 2025-08-04 14:31 | Outpatient (BNV) | payer OTHER, SELFPAY | PROVIDERS: PCP Internal Medicine Geriatric Medicine; Visit Provider Physical Medicine & Rehabilitation | DX: G62.89 Other specified polyneuropathies (principal) | CPT/HCPCS: 95886; 95910 ==